=== PATIENT | male | born 1950 | race Caucasian/White ===

== ENCOUNTER 2019-02-11 09:06 | Outpatient (REF) | payer MEDICARE, SELFPAY ==
[2019-02-13 12:51] LABS: IgA 130 mg/dL (85-499); Tissue Transglutaminase IgA <1.2 U/mL (<4.0)
== END 2019-02-11 09:26 ==
LOC: NCHCN 09:06
PROVIDERS: PCP Internal Medicine; Visit Provider Internal Medicine
DX: K58.9 Irritable bowel syndrome, unspecified (principal)
CPT/HCPCS: 82784; 83516

== ENCOUNTER 2019-03-12 16:19 | Outpatient (REF) | payer MEDICARE, SELFPAY ==
[2019-03-12 22:39] LABS: HCT 44.9 % (40.0-50.0); HGB 14.8 g/dL (13.5-17.5); Mean Corpuscular Hemoglobin 30.5 pg (27.0-33.0); Mean Corpuscular Volume 92.4 fL (80-95); Mean Platelet Volume 9.6 fL (8.0-11.0); Platelet Count 345 x1000/uL (130-400); RBC 4.86 m/cumm (4.50-6.00); RBC Distribution Width 13.2 % (11.8-14.1); White Blood Cell Count 12.57 k/cumm (4.4-10.8)
[2019-03-12 22:55] LABS: Anion Gap 8.5 mmol/L (3-11); BUN 21 mg/dL (7-18); CO2 28.5 mmol/L (21.0-32.0); CREATININE 0.81 mg/dL (0.70-1.30); Calcium 9.2 mg/dL (8.5-10.1); Chloride 103 mmol/L (98-107); Glucose 114 mg/dL (74-106); Potassium 4.6 mmol/L (3.5-5.1); Sodium 140 mmol/L (136-145)
[2019-03-12 23:51] LABS: Bilirubin Negative (Negative); Blood Moderate (Negative); Clarity Clear (Clear); Glucose Negative (Negative); Ketones Trace mg/dL (Negative); Leukocyte Esterase Negative (Negative); Nitrite Negative (Negative); Urobilinogen 0.2 EU/dL (Up TO 0.2)
[2019-03-13 00:15] LABS: RBC 20-50 HPF (0-2)
[2019-03-13 00:16] LABS: Bacteria Rare HPF (Negative); C & S Indicated? No; Mucus Trace (Negative)
[2019-03-14 10:30] LABS: PSA, Screening 3.1 ng/mL (0.0-4.5)
== END 2019-03-12 16:39 ==
LOC: NCHCN 16:19
PROVIDERS: PCP Internal Medicine; Visit Provider Nurse Practitioner Family
DX: R30.0 Dysuria (principal); R31.9 Hematuria, unspecified; Z12.5 Encounter for screening for malignant neoplasm of prostate
CPT/HCPCS: 80048; 84153; 85027; 81003; 81015

== ENCOUNTER 2019-04-24 02:46 | Outpatient (CLI) | payer MEDICARE, SELFPAY ==
--- NOTE | 2019-04-24 08:47 | DI.CT_ITS ---
EXAM: CT ABDOMEN PELVIS WO/W CLINICAL HISTORY: H/O HEMATURIA, Z87.448 TECHNIQUE: Without oral contrast Post IV contrast during the venous and delayed phases COMPARISON: CHEST WITH CONTRAST from 06/21/2010 FINDINGS: There is a mass on the left side of the bladder measuring 2.5 cm in diameter. It contains a few armand cifications. There is adjacent thickening of the bladder wall. The prostate is enlarged, measuring 5.8 x 5.3 x 5.9 cm. No adenopathy is seen. There are parapelvic cysts in both kidneys. There are n o renal calculi or evidence of hydronephrosis. No filling defects are seen in the collecting systems . There are no renal masses. The lung bases are clear. The liver shows mild fatty infiltration. The gallbladder, spleen, adrenal s and pancreas are unremarkable. There is diverticulosis in the sigmoid colon. No evidence of diver ticulitis. The appendix appears normal. There is no small bowel dilatation. There is a small amoun t of fat in the inguinal canals, right greater than left. Degenerative disc changes and facet degene rative changes are noted in the spine. No lytic or blastic bony lesions are seen. IMPRESSION: 2.5 centimeter mass in the left side of the bladder with adjacent bladder wall thickening. Enlarged prostate.
[2019-04-24] MEDS: Omnipaque 350 MG/ML 100 ML BTL IJ (09:32)
== END 2019-04-24 03:06 ==
PROVIDERS: PCP Internal Medicine; Visit Provider Internal Medicine
DX: N32.89 Other specified disorders of bladder (principal); N40.0 Benign prostatic hyperplasia without lower urinary tract symptoms; N28.1 Cyst of kidney, acquired; K76.0 Fatty (change of) liver, not elsewhere classified
CPT/HCPCS: 74178; J3490

== ENCOUNTER → 2019-04-30 10:00 | Outpatient (BNVA) | payer MEDICARE, SELFPAY | PROVIDERS: PCP Internal Medicine; Referring Provider Internal Medicine; Visit Provider Nurse Practitioner Gerontology | DX: N32.89 Other specified disorders of bladder (principal); N40.1 Benign prostatic hyperplasia with lower urinary tract symptoms; N13.8 Other obstructive and reflux uropathy | CPT/HCPCS: 81003; 99204 ==

== ENCOUNTER 2019-05-06 06:12 | Day surgery (SDC) | payer MEDICARE, SELFPAY ==
--- NOTE | 2019-05-05 08:49 | BLADDER_PTH ---
PATIENT: José Miguel Ryder LOC: [facility] U#:[id number] AGE/SX: 68/M ROOM: RE05/06/[address]: Romain Abdi MD : 1950 BED: DIS: 05/06/2019 SPEC #: [id number] RECD: 05/06/19 12:46 STATUS: [facility] REQ #: [id number] SEAN: 05/05/19 08:[address]: Romain Abdi DEPT: Surgical Specimen RECD BY: Lashell Hyatt ENTERED: 05/06/19 12:46 SP TYPE: Bladder OTHR DR: Santosh Zhong Tissues: 1 - BLADDER CURRETTINGS Procedures: GROSS AND MICRO LEVEL 5 Comments: [id number]
[2019-05-06 06:27] VITALS: BP 137/78; PULSE 69; RESP 16; TEMP 36.5; O2SAT 99
[2019-05-06] MEDS: Lactated Ringers 1,000 ML 80 ML IV (06:56)
--- NOTE | 2019-05-06 07:02 | W.PM.HP.N ---
Date of service: 05/06/19 Time of Service: 07:02 Assessment and Plan Assessment and plan (1) Bladder mass: Status: Acute Assessment and plan: We will plan cystoscopy with possible TUR Bladder tumor. If he requires continuous bladder irrigation after surgery, he will need to remain in the hospital. Otherwise, he will be able to go home after his surgery. He has a history of ventricular septal defect, but does not require additional antibiotics for surgical procedures History of Present Illness History of Present Illness Chief Complaint: Bladder mass Narrative: José Miguel is a 68-year-old male referred to urology by [facility], Dr. Zhong. Patient is being seen for gross hematuria and a bladder mass. Patient reports being seen by the [facility] for an episode of gross hematuria with dysuria. He states that this was the first time he is ever seen blood in his urine?and was very scared and concerned about this. He states he was tested positive for a UTI and treated with ciprofloxacin. He states his flow got better after the antibiotic. He has not seen any blood in his urine since. He does note that it has been darker in color but without any type of clot or blood. He notes that typically he is up once a night to urinate. He has noticed a weaker stream. He does not need to push to initiate a stream. He does have some hesitancy. Denies frequency urgency. He feels that he empties his bladder completely. He notes that occasionally he will still have dysuria with voiding. He denies abnormal bleeding or bruising of the skin. No long bone pain. No weight loss. He does state that he has had abdominal bloating. He does recall an incident when he was in his younger years shoveling snow where he took the travel to his lower abdominal area and moved his body to shovel the snow. He had developed bruising and jaundice per him that made him sick for several weeks. He never had recurrent urinary tract infections. 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 Allergies Reviewed elsewhere in the chart Medications Reviewed elsewhere in the chart Family Hx No urology family history of concerns or cancers Review of Systems Const: Denies chills, fatigue, fever(s) or weight loss Card: Denies chest pain or dyspnea Resp: Denies dyspnea GI: Reports abdominal pain; Denies constipation or diarrhea : Reports as per HPI and dysuria; Denies hematuria (none currently), flank pain, nocturia, urinary frequency, urinary hesitancy, urinary incontinence or urinary urgency Endo: Denies fatigue Exam Const Orientation: alert, awake and oriented x3 Other: VS reviewed that were done by nurse Eyes Sclera: sclerae normal Resp Effort & Inspection: normal respiratory effort GI Inspection: normal to inspection, non-distended and obesity Palpation: soft and tender suprapubicly Rectal Exam: prostate abnormal enlarged; no nodules and nontender General: No CVA tenderness Extrem General: full ROM [facility] Medical History (Updated 05/06/19 @ 06:23 by Paulino Randhawa) Abdominal bloating (Acute) Adenomatous colon polyp (Acute) Asthma (Chronic) Ceruminosis (Acute) DJD (degenerative joint disease) (Chronic) Patient denies having arthritis or DJD. Dysthymia (Acute) Elevated blood pressure reading (Acute) Elevated PSA (Acute) GERD (gastroesophageal reflux disease) (Chronic) IBS (irritable bowel syndrome) (Chronic) Left shoulder pain (Acute) Lower abdominal pain (Acute) Obesity (Chronic) Peripheral neuropathy (Acute) RLS (restless legs syndrome) (Acute) Skin lesion (Acute) Ventricular septal defect (Acute) Social History Smoking/Tobacco Use Status: Never Drug use: Never Substance use type: does not use Do you feel safe at home: Yes Do you feel safe in your relationship?: Yes Meds Home Medications and Allergies Home Medications Medication Instructions Recorded Confirmed Type omeprazole 20 mg PO DAILY tab-cap 09/27/15 05/06/19 History albuterol sulfate 90 mcg/actuation 2 puff IH Q6H PRN 04/28/19 05/06/19 History aerosol inhaler Allergies Allergy/AdvReac Type Severity Reaction Status Date / Time Penicillins Allergy as child, Unverified 05/06/19 06:24 unknown ropinirole HCl [From Requip] AdvReac Intermediate Contraindic Unverified 05/06/19 06:24 ated Exam Resp Auscultation: clear to auscultation bilaterally Cardio Rate: regular rate Rhythm: regular rhythm Results Last Vital Signs Temp 36.5 C 05/06/19 06:27 Pulse 69 05/06/19 06:27 Resp 16 05/06/19 06:27 BP 137/78 05/06/19 06:27 Pulse Ox 99 05/06/19 06:27
[2019-05-06] MEDS: CIPROFLOXACIN 400 MG/200 ML BAG 200 MG IVPB (07:51)
[2019-05-06] MEDS: Lidocaine 2% Jelly 6 ML SYR (08:10)
[2019-05-06 08:59] VITALS: BP 136/65; PULSE 71; RESP 17; TEMP 36.9; O2SAT 94
--- NOTE | 2019-05-06 08:59 | W.PM.DSUDISC ---
Discharge Plan Disposition Patient Disposition: HOME Condition: Stable Discharge Details Admit Date/Time: 05/06/19 06:12 Admit Provider: Romain Abdi Attending Provider: Romain Abdi Primary Care Provider: Santosh Zhong Hospital Course Hospital Course: He was brought to the operating room for cystoscopy. We identified a rather large tumor on the left anterior bladder wall. Resection of the tumor was accomplished. The depth of the resection made me decide not to place intravesical chemotherapy intraoperatively Hemostasis appeared good so we decided against bladder irrigation and hospitalization. We placed a 20 Marshallese Cannon catheter with a 10 cc balloon. The catheter will remain in place for 5 to 7 days. Home Meds and New Rx's Prescriptions: No Action omeprazole 10 MG capsule,delayed release(DR/EC) 20 mg PO DAILY RF: 0 albuterol sulfate [Ventolin HFA] 90 mcg/actuation HFA aerosol inhaler 2 puff IH Q6H PRNRF: 0 Discharge Instructions Additional Instructions: Cannon to legbag during day - may use large drainage bag at night F/U for catheter removal 5 to 7 days and pathology Activity:: no straining/lifting over 10 pounds for 1 week Equipment/Supplies:: cannon to leg bag Diet:: As Tolerated Discharge Orders Discharge Orders: Discharge Order (Routine); Ordered 05/06/19 Ordered By: Romain Abdi DS: Diagnosis Discharge Diagnosis (1) Bladder mass: Status: Acute
[2019-05-06 09:04] VITALS: BP 136/76; PULSE 71; RESP 15; TEMP 36.9; O2SAT 94
[2019-05-06 09:09] VITALS: BP 133/66; PULSE 73; RESP 16; TEMP 36.9; O2SAT 94
[2019-05-06 09:24] VITALS: BP 117/55; PULSE 69; RESP 18; TEMP 36.9; O2SAT 97
[2019-05-06 10:37] VITALS: BP 112/64; PULSE 60; RESP 16; TEMP 36.5; O2SAT 96
--- NOTE | 2019-05-06 11:02 | ROE_ITS ---
DATE OF PROCEDURE: May 06, 2019 PREOPERATIVE DIAGNOSIS: Bladder mass. POSTOPERATIVE DIAGNOSIS: Same. PROCEDURE: Cystoscopy; transurethral resection of bladder tumor. SURGEON: Romain Abdi M.D. ANESTHESIA: General. COMPLICATIONS: None. ESTIMATED BLOOD LOSS: 100 cc's HISTORY: This is a 68-year-old gentleman who was identified as having gross hematuria with clots. H e was evaluated with a CT urogram which demonstrated a mass within the bladder. He presents now for a cystoscopy, possible transurethral resection of any visible mass and installation of chemotherapy i nto the bladder. OPERATIVE REPORT: The patient was brought to the operating room on 05/06/2019. After successful vidya ction of general anesthesia, he was placed in the dorsal lithotomy position. He was given a dose of preoperative antibiotics. His genitalia was prepped and draped. 2% Xylocaine jelly was instilled into the urethra to act as a local anesthetic. A 24 Fijian resectoscope sheath was passed through the urethra into the bladder. The urethra and bladder were inspected with the visual obturator and a 30-degree lens. The pendulous, bulbous and membranous urethras all appeared normal with no strictures. The prostatic urethra showed some lateral lobe enlargement and an elevated bladder neck. No papillary lesions wer e seen on the prostatic mucosa. Both ureteral orifices appeared normal. No blood was seen coming from either side. The right side o f the bladder appeared normal. Up on the left anterior bladder wall there was a 5 cm necrotic-appear ing mass. Surrounding the mass there appeared to be papillary mucosa, consistent with the visual gisselle earance of urothelial cell carcinoma. We then utilized a resectoscope loop and bipolar cautery to completely resect the visible tumor. We extended the resection down to the muscularis layer for staging purposes. In a few areas, perivesica l fat was seen so we elected not to place a dose of intravesical chemotherapy. We then cauterized the entire resection site. Hemostasis appeared excellent so we decided against bl adder irrigation. All resected tissue was evacuated and sent to pathology for permanent section. The bladder was fille d with irrigant. A 20 Fijian Kim catheter was passed through the urethra into the bladder. The ca theter balloon was inflated with 10 cc's of sterile water and the catheter was hooked to gravity manjula coon. The catheter was irrigated and no clots or tissue was evacuated. A digital rectal exam and bimanual exam was performed. No pelvic fixation was noted. No palpable ma ss was found. A belladonna and opium suppository was placed rectally to help with postop spasms. The patient tolerated the procedure well with no complications. cc: Santosh Zhong M.D.
== END 2019-05-06 11:10 | disposition home or self-care (01) ==
LOC: PDS 10:19 → DSU 12:33
PROVIDERS: PCP Internal Medicine; Visit Provider Urology
PROC: 0TBB8ZZ Excision of Bladder, Via Natural or Artificial Opening Endoscopic (ICD-10-PCS; CPT 52235; principal; 2019-05-06 08:30)
DX: C67.3 Malignant neoplasm of anterior wall of bladder (principal)
CPT/HCPCS: 52235; NC; 88307; J0131; J0744; J1100; J1885; J2001; J2250; J2405; J3010

== ENCOUNTER 2019-05-08 00:10 | Emergency (ER) | payer MEDICARE, SELFPAY ==
[2019-05-08 00:14] VITALS: BP 185/94; PULSE 95; RESP 20; TEMP 36.6; O2SAT 98
--- NOTE | 2019-05-08 00:18 | ED.GENADUL_ITS ---
Discharge Plan Disposition Patient Disposition: HOME Condition: Stable Discharge Details Chief Complaint: Urinary Clinical Impression: Bladder spasms Primary Care Provider: Santosh Zhong ED Provider: Edwin Nunez Home Meds and New Rx's Prescriptions: Continued omeprazole 10 MG capsule,delayed release(DR/EC) 20 mg PO DAILY RF: 0 albuterol sulfate [Ventolin HFA] 90 mcg/actuation HFA aerosol inhaler 2 puff IH Q6H PRNRF: 0 tramadol 50 mg tablet 50 mg PO Q6H PRN (Reason: pain) Qty: 15 RF: 0 oxybutynin chloride 5 mg tablet 5 mg PO TID PRN (Reason: bladder spasms) Qty: 12 RF: 0 Discharge Instructions Instructions: Cannon Catheter Placement and Care (ED), Urinary Leg Bag (GEN) Additional Instructions: follow up with Dr. Abdi if you have severe worsening pain, fevers or persistent vomit return to the emergency department Medical Decision Making 68 yo male who underwent bladder mass removal [address] Abdi comes in with intermittent spasm sensation in suprapubic region during the day today. HAs not taken any meds and denies having any tramadol or oxybutynin at home. Denies fevers, vomit. Cannon catheter bag is draining normally and flushes easily. Patient has no pain now and no tenderness, normal testicles without tenderness. Suspect bladder spasm based on recent procedure and symptoms. Given lack of tenderness now don't suspect surgical pathology such as appendicitis, ruptured bladder, etc. Will give oxybutynin prescriptions and tramadol. ADvised f/u with Dr. Abdi and return precautions given. Differential Diagnosis Differential Diagnosis: bladder spasm, cannon catheter malfunction HPI General Mode of arrival: ambulatory . Date/Time Provider Initiated Documentation: 05/08/19 00:11 . Limitations to Documentation: no limitations . Information obtained by: patient . History of Present Illness 68 year old M presents to the emergency department with the chief complaint of bladder spasm, described as moderate, and it has been intermittent. No relieving factors improve symptom(s), No exacerbating factors reported . Patient did receive the following treatments prior to arrival, none Related Data Home Medications Medication Instructions Recorded Confirmed omeprazole 20 mg PO DAILY tab-cap 09/27/15 05/08/19 albuterol sulfate 90 mcg/actuation 2 puff IH Q6H PRN 04/28/19 05/08/19 aerosol inhaler oxybutynin chloride 5 mg PO TID PRN #12 tab 05/08/19 tramadol 50 mg PO Q6H PRN #15 tab 05/08/19 Previous Rx's Medication Instructions Recorded oxybutynin chloride 5 mg PO TID PRN #12 tab 05/08/19 tramadol 50 mg PO Q6H PRN #15 tab 05/08/19 Allergies Allergy/AdvReac Type Severity Reaction Status Date / Time Penicillins Allergy as child, Unverified 05/08/19 00:16 unknown ropinirole HCl [From Requip] AdvReac Intermediate Contraindic Unverified 02/14 00:16 ated General Stated Complaint: Urinary LUIS MANUEL: 3 Review of Systems All systems reviewed & are unremarkable except as noted in HPI and below Constitutional Constitutional: Denies chills and Denies fever(s) ENT Ears, Nose, Mouth, and Throat: Denies change in voice Cardiovascular Cardiovascular: Denies chest pain and Denies dyspnea Respiratory Respiratory: Denies cough and Denies dyspnea Gastrointestinal Gastrointestinal: Denies abdominal pain, Denies nausea and Denies vomiting Integumentary/Breasts Skin/Breast: Denies rash Psychiatric Psychiatric: Denies depression PFSH Social History Smoking/Tobacco Use Status: Never Drug use: Never Substance use type: does not use Do you feel safe at home: Yes Do you feel safe in your relationship?: Yes Exam Const General: no acute distress Orientation: alert HENMT Head: normal to inspection Ears: external ears normal General nose exam: external nose normal Mouth: moist mucous membranes Eyes General: appearance normal, both eyes and all related structures Neck Neck: normal visual inspection Resp Effort & Inspection: normal respiratory effort and able to speak in complete sentences Cardio Rate: regular rate Male General Exam: No edema and No erythema Skin General skin exam: no rashes or lesions noted Neuro General: alert and oriented x3 Extrem General: normal to inspection Psych Mental Status: mental status grossly normal Course Vital Signs Vital signs: Vital Signs Temperature 36.6 C 05/08/19 00:14 Pulse 95 H 05/08/19 00:14 Respiratory Rate 20 05/08/19 00:14 Blood Pressure 185/94 H 05/08/19 00:14 Pulse Oximetry 98 05/08/19 00:14 Temperature 36.6 C 05/08/19 00:14 Temperature Source Temporal Artery Scan 05/08/19 00:14 Pulse 95 H 05/08/19 00:14 Respiratory Rate 20 05/08/19 00:14 Respiratory Effort Non-Labored 05/08/19 00:16 Blood Pressure 185/94 H 05/08/19 00:14 Blood Pressure Position Sitting 05/08/19 00:14 Pulse Oximetry 98 05/08/19 00:14 Oxygen Delivery Method Room Air 05/08/19 00:14 Oxygen Flow Rate 0 05/08/19 00:14 Pain Level 10 05/08/19 00:16
[2019-05-08] MEDS: Oxybutynin 5 MG TAB (00:34)
[2019-05-08] MEDS: Oxybutynin 5 MG TAB PO (00:34)
[2019-05-08] MEDS: traMADol 50 MG TAB PO (00:34)
[2019-05-08 01:08] VITALS: BP 185/94; PULSE 95; RESP 20; TEMP 36.6; O2SAT 98
== END 2019-05-08 01:10 | disposition home or self-care (01) ==
LOC: ER 00:44
PROVIDERS: Emergency Provider Emergency Medicine; PCP Internal Medicine
DX: N32.89 Other specified disorders of bladder (principal); Y83.8 Other surgical procedures as the cause of abnormal reaction of the patient, or of later complication, without mention of misadventure at the time of the procedure; Z96.0 Presence of urogenital implants
CPT/HCPCS: 99283

== ENCOUNTER → 2019-05-09 08:13 | Outpatient (BNVA) | payer MEDICARE, SELFPAY | PROVIDERS: PCP Internal Medicine; Referring Provider Internal Medicine; Visit Provider Urology | DX: C67.3 Malignant neoplasm of anterior wall of bladder (principal); Z46.6 Encounter for fitting and adjustment of urinary device | CPT/HCPCS: 99212 ==

== ENCOUNTER → 2019-05-15 12:26 | Outpatient (BNVA) | payer MEDICARE, SELFPAY | PROVIDERS: PCP Internal Medicine; Referring Provider Internal Medicine; Visit Provider Urology | DX: C67.9 Malignant neoplasm of bladder, unspecified (principal); D09.0 Carcinoma in situ of bladder | CPT/HCPCS: 81003; 99214 ==

== ENCOUNTER → 2019-06-13 13:27 | Outpatient (BNVA) | payer MEDICARE, SELFPAY | PROVIDERS: PCP Internal Medicine; Referring Provider Internal Medicine; Visit Provider Urology | DX: D09.0 Carcinoma in situ of bladder (principal); C67.9 Malignant neoplasm of bladder, unspecified | CPT/HCPCS: 51720; 99213; J9201 ==

== ENCOUNTER → 2019-06-20 10:40 | Outpatient (BNVA) | payer MEDICARE, SELFPAY | PROVIDERS: PCP Internal Medicine; Referring Provider Internal Medicine; Visit Provider Urology | DX: C67.9 Malignant neoplasm of bladder, unspecified (principal); D09.0 Carcinoma in situ of bladder | CPT/HCPCS: 51720; 99212; J9031 ==

== ENCOUNTER → 2019-06-27 11:28 | Outpatient (BNVA) | payer MEDICARE, SELFPAY | PROVIDERS: PCP Internal Medicine; Referring Provider Internal Medicine; Visit Provider Urology | DX: D09.0 Carcinoma in situ of bladder (principal); C67.9 Malignant neoplasm of bladder, unspecified | CPT/HCPCS: 51720; 99213; J9031 ==

== ENCOUNTER → 2019-07-04 08:06 | Outpatient (BNVA) | payer MEDICARE, SELFPAY | PROVIDERS: PCP Internal Medicine; Referring Provider Internal Medicine; Visit Provider Urology | DX: D09.0 Carcinoma in situ of bladder (principal); C67.9 Malignant neoplasm of bladder, unspecified | CPT/HCPCS: 51720; 99213; J9031 ==

== ENCOUNTER → 2019-07-11 07:40 | Outpatient (BNVA) | payer MEDICARE, SELFPAY | PROVIDERS: PCP Internal Medicine; Referring Provider Internal Medicine; Visit Provider Urology | DX: D09.0 Carcinoma in situ of bladder (principal); C67.9 Malignant neoplasm of bladder, unspecified | CPT/HCPCS: 51720; 99213; J9031 ==

== ENCOUNTER → 2019-07-18 07:47 | Outpatient (BNVA) | payer MEDICARE, SELFPAY | PROVIDERS: PCP Internal Medicine; Referring Provider Internal Medicine; Visit Provider Urology | DX: D09.0 Carcinoma in situ of bladder (principal); C67.9 Malignant neoplasm of bladder, unspecified | CPT/HCPCS: 51720; 99213; J9201 ==

== ENCOUNTER 2019-08-25 08:32 | Outpatient (CLI) | payer MEDICARE, SELFPAY ==
[2019-08-25 20:44] LABS: COVID-19 RT-PCR UVMMC Result Negative (Negative)
== END 2019-08-25 08:52 ==
PROVIDERS: PCP Internal Medicine; Visit Provider Urology
DX: Z01.818 Encounter for other preprocedural examination (principal); Z11.59 Encounter for screening for other viral diseases
CPT/HCPCS: U0003

== ENCOUNTER 2019-08-28 06:56 | Day surgery (SDC) | payer MEDICARE, SELFPAY ==
[2019-08-28 07:13] VITALS: BP 144/72; PULSE 68; RESP 18; TEMP 36.7; O2SAT 97
[2019-08-28] MEDS: Lactated Ringers 1,000 ML 80 ML IV (08:04)
[2019-08-28] MEDS: Ciprofloxacin 500 MG TAB PO (08:04)
--- NOTE | 2019-08-28 08:23 | HPE_ITS ---
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 He was treated with transurethral resection followed by an induction course of intravesical BCG. He presents for surveillance cystoscopy and possible transurethral resection. He has not seen any gross hematuria. He has some spraying of his urinary stream. He has no retention. Review of Systems Narrative: No fevers or chills No vision change or dysphasia No diabetes or thyroid Hx asthma. No hemoptysis No chest pain or palpitations Hx GERD. No hepatitis, ulcers, jaundice, diarrhea or constipation No seizures, strokes or peripheral neuropathy No bleeding disorders or anemia No gout [facility] Medical History Abdominal bloating (Acute) Adenomatous colon polyp (Acute) Asthma (Chronic) Bladder cancer (Acute) Carcinoma in situ of bladder (Acute) Ceruminosis (Acute) DJD (degenerative joint disease) (Chronic) Patient denies having arthritis or DJD. Dysthymia (Acute) Elevated blood pressure reading (Acute) Elevated PSA (Acute) GERD (gastroesophageal reflux disease) (Chronic) IBS (irritable bowel syndrome) (Chronic) Left shoulder pain (Acute) Lower abdominal pain (Acute) Obesity (Chronic) Peripheral neuropathy (Acute) RLS (restless legs syndrome) (Acute) Skin lesion (Acute) Ventricular septal defect (Acute) Surgical History (Updated 08/28/19 @ 07:15 by Lily Bagley RN) Colonoscopy - MAC (11/30/15) Hx of cystoscopy (Acute) Social History Smoking/Tobacco Use Status: Never Alcohol Intake: current Alcohol Intake frequency: 0-2 drinks per day Alcohol type: wine Drug use: Never Substance use type: does not use Do you feel safe at home: Yes Do you feel safe in your relationship?: Yes Meds Home Medications and Allergies Home Medications Medication Instructions Recorded Confirmed Type omeprazole 20 mg PO DAILY tab-cap 09/27/15 08/28/19 History albuterol sulfate 90 mcg/actuation 2 puff IH Q6H PRN 04/28/19 08/28/19 History aerosol inhaler oxybutynin chloride 5 mg PO TID PRN #12 tab 05/08/19 08/28/19 Rx tramadol 50 mg PO Q6H PRN #15 tab 05/08/19 08/28/19 Rx amlodipine 5 mg PO DAILY 08/26/19 08/28/19 History multivitamin 1 tab PO DAILY 08/26/19 08/28/19 History Allergies Allergy/AdvReac Type Severity Reaction Status Date / Time Penicillins Allergy as child, Unverified 08/28/19 07:14 unknown ropinirole HCl [From Requip] AdvReac Intermediate Contraindic Unverified 08/28/19 07:14 ated Exam Const General: cooperative and not in acute distress Orientation: alert and awake Neck Neck: supple Resp Effort & Inspection: normal respiratory effort Auscultation: clear to auscultation bilaterally Cardio Rate: regular rate Rhythm: regular rhythm GI Palpation: soft and no masses Neuro General: patient alert, patient awake and patient oriented x3 Results Last Vital Signs Temp 36.7 C 08/28/19 07:13 Pulse 68 08/28/19 07:13 Resp 18 08/28/19 07:13 BP 144/72 H 08/28/19 07:13 Pulse Ox 97 08/28/19 07:13 COVID-19 Screening In the past 14 days, have you traveled outside of [place]?: YES Had IN PERSON contact w/suspected or confirmed C-19 person: No
[2019-08-28] MEDS: Lidocaine 2% Jelly 6 ML SYR (09:25)
--- NOTE | 2019-08-28 09:28 | PAPNONF_PTH ---
PATIENT: José Miguel Ryder LOC: [facility] U#:[id number] AGE/SX: 69/M ROOM: RE08/28/[address]: Romain Abdi MD : 1950 BED: DIS: 08/28/2019 SPEC #: [id number] RECD: 08/28/19 13:00 STATUS: [facility] REQ #: [id number] SEAN: 08/28/19 09:[address]: Romain Abdi DEPT: [facility] Cytology RECD BY: Lashell Hyatt ENTERED: 08/28/19 13:01 SP TYPE: PAPBALDOMEROF [place] DR: Santosh Zhong Tissues: 1 - BODY FLUID CYTO(SPUTUM/URINE)[facility] Procedures: BODY FLUID CYTO(URINE/SPUTUM) Comments: [id number] (TOTAL VOLUME = 90 ml's) (45 ml's URINE & 45 ml's CYTOLYT ADDED IN 2 CONTAINERS)
--- NOTE | 2019-08-28 09:37 | W.PM.DSUDISC ---
Discharge Plan Disposition Patient Disposition: HOME Condition: Stable Discharge Details Attending Provider: Romain Abdi Primary Care Provider: Santosh Zhong Home Meds and New Rx's Prescriptions: No Action omeprazole 10 MG capsule,delayed release(DR/EC) 20 mg PO DAILY RF: 0 albuterol sulfate [Ventolin HFA] 90 mcg/actuation HFA aerosol inhaler 2 puff IH Q6H PRNRF: 0 tramadol 50 mg tablet 50 mg PO Q6H PRN (Reason: pain) Qty: 15 RF: 0 oxybutynin chloride 5 mg tablet 5 mg PO TID PRN (Reason: bladder spasms) Qty: 12 RF: 0 amlodipine 5 mg Tablet 5 mg PO DAILY RF: 0 multivitamin Tablet 1 tab PO DAILY RF: 0 Discharge Instructions Additional Instructions: My office will call pt with cytology results next week As long as cytology is normal (as expected) will need surveillance cysto in 3 months Activity:: Activity as Tolerated Shower/Bathe:: 24 hours Diet:: As Tolerated Discharge Orders Discharge Orders: Discharge Order (Routine); Ordered 08/28/19 Ordered By: Romain Abdi DS: Diagnosis Discharge Diagnosis (1) Carcinoma in situ of bladder: Status: Acute (2) Bladder cancer: Status: Acute
--- NOTE | 2019-08-28 09:42 | ROE_ITS ---
Date of service: 08/28/19 Time of Service: 09:42 Operative Note Operative Note DATE OF PROCEDURE: 08/28/19 PRE-OP DIAGNOSIS: Bladder cancer POST-OP DIAGNOSIS: same PROCEDURE: Cystoscopy SURGEON: Romain Abdi ANESTHESIA: other (General without intubation) ESTIMATED BLOOD LOSS: 0 PATHOLOGY: other (Urine for cytology) COMPLICATIONS: None Patient was transported to: same day Patient's condition: stable Indications: This is a 69-year-old gentleman who has a history of high-grade urothelial cell carcinoma that involved the lamina propria. He also had areas of carcinoma in situ. He received a 6-week induction series of BCG installations. He presents now for surveillance cystoscopy. Findings: No obvious bladder tumor Procedure Description: The patient was brought to the operating room on 08/28/2019. He was given preoperative oral antibiotics. After successful induction of general anesthesia without intubation, he was placed in the dorsal lithotomy position. His genitalia is prepped and draped. 2% Xylocaine jelly was instilled into the urethra to act as a local anesthetic. A 17 Vietnamese rigid cystoscope was passed through the urethra into the bladder. The urethra and bladder were inspected using a 30 degree lens. The pendulous, bulbous and membranous urethra was appeared normal. The prostatic urethra showed lateral lobe enlargement but no significant median lobe. The bladder neck was entered the bladder mucosa was inspected. Urine was obtained directly from the bladder and sent to pathology for cytology exam. The bladder mucosa appeared normal with the exception of a small adherent stone in the patient's left anterior bladder wall. This corresponds to his previous site of resection. No papillary or nodular lesions were identified. These findings were confirmed on reinspection of the bladder using a 70 degree lens. Based on today's examination, I do not find any cystoscopic evidence of tumor recurrence. As long as his urine cytology is unremarkable, we will plan on a repeat cystoscopy in 3 months. We will also check on the availability of BCG for maintenance doses of intravesical chemotherapy. He tolerated this procedure well with no complications. He was to come back to the outpatient area in stable condition.
[2019-08-28] MEDS: Phenazopyridine 200 MG TAB PO (09:59)
[2019-08-28 10:15] VITALS: BP 132/68; PULSE 65; RESP 18; TEMP 36.2; O2SAT 99
--- NOTE | 2019-08-28 10:16 | W.PM.DSUDISC ---
Discharge Plan Disposition Patient Disposition: HOME Condition: Stable Discharge Details Attending Provider: Romain Abdi Primary Care Provider: Santosh Zhong Home Meds and New Rx's Prescriptions: New oxybutynin chloride 5 mg tablet 5 mg PO BID-TID PRN (Reason: bladder spasms) Qty: 10 RF: 0 Discontinued oxybutynin chloride 5 mg tablet 5 mg PO TID PRN (Reason: bladder spasms) Qty: 12 RF: 0 No Action omeprazole 10 MG capsule,delayed release(DR/EC) 20 mg PO DAILY RF: 0 albuterol sulfate [Ventolin HFA] 90 mcg/actuation HFA aerosol inhaler 2 puff IH Q6H PRNRF: 0 tramadol 50 mg tablet 50 mg PO Q6H PRN (Reason: pain) Qty: 15 RF: 0 amlodipine 5 mg Tablet 5 mg PO DAILY RF: 0 multivitamin Tablet 1 tab PO DAILY RF: 0 Discharge Instructions Additional Instructions: My office will call pt with cytology results next week As long as cytology is normal (as expected) will need surveillance cysto in 3 months Stand Alone Forms: [facility] Donna Rajan ([facility]oke) Activity:: Activity as Tolerated Shower/Bathe:: 24 hours Diet:: As Tolerated Discharge Orders Discharge Orders: Discharge Order (Routine); Ordered 08/28/19 Ordered By: Romain Abdi DS: Diagnosis Discharge Diagnosis (1) Carcinoma in situ of bladder: Status: Acute (2) Bladder cancer: Status: Acute
== END 2019-08-28 10:45 | disposition home or self-care (01) ==
PROVIDERS: PCP Internal Medicine; Visit Provider Urology
PROC: 0TJB8ZZ Inspection of Bladder, Via Natural or Artificial Opening Endoscopic (ICD-10-PCS; CPT 52000; principal; 2019-08-28 08:30)
DX: Z08 Encounter for follow-up examination after completed treatment for malignant neoplasm (principal); C67.9 Malignant neoplasm of bladder, unspecified; J45.909 Unspecified asthma, uncomplicated; K21.9 Gastro-esophageal reflux disease without esophagitis
CPT/HCPCS: 52000; NC; 88104; J1885; J2001; J2405

== ENCOUNTER → 2019-10-14 08:44 | Outpatient (BNVA) | payer MEDICARE, SELFPAY | PROVIDERS: PCP Internal Medicine; Referring Provider Internal Medicine; Visit Provider Nurse Practitioner Gerontology | DX: C67.9 Malignant neoplasm of bladder, unspecified (principal) | CPT/HCPCS: 51720; 81003; 99213; J9201 ==

== ENCOUNTER → 2019-10-27 14:35 | Outpatient (BNVA) | payer MEDICARE, SELFPAY | PROVIDERS: PCP Internal Medicine; Referring Provider Internal Medicine; Visit Provider Urology | DX: N40.1 Benign prostatic hyperplasia with lower urinary tract symptoms (principal); N13.8 Other obstructive and reflux uropathy; D09.0 Carcinoma in situ of bladder; C67.9 Malignant neoplasm of bladder, unspecified | CPT/HCPCS: 99212; 99213 ==

== ENCOUNTER 2020-01-02 01:51 | Outpatient (CLI) | payer MEDICARE, SELFPAY ==
[2020-01-04 11:09] LABS: SARS-CoV-2 RNA Not Detected (NotDetected); SARS-CoV-2 RNA Source Nasal/Nares
== END 2020-01-02 02:11 ==
PROVIDERS: PCP Internal Medicine; Visit Provider Urology
DX: Z11.59 Encounter for screening for other viral diseases (principal); Z01.818 Encounter for other preprocedural examination
CPT/HCPCS: U0003

== ENCOUNTER 2020-01-05 07:13 | Day surgery (SDC) | payer MEDICARE, SELFPAY ==
[2020-01-05 07:28] VITALS: BP 149/82; PULSE 70; RESP 16; TEMP 36.7; O2SAT 100
[2020-01-05] MEDS: Ciprofloxacin 500 MG TAB PO (08:02)
[2020-01-05] MEDS: Lactated Ringers 1,000 ML 80 ML IV (08:10)
--- NOTE | 2020-01-05 08:16 | W.PM.HP.N ---
Date of service: 01/05/20 Time of Service: :16 Assessment and Plan Assessment and plan (1) Bladder cancer: Status: Acute (2) Carcinoma in situ of bladder: Status: Acute Assessment and plan: We will plan on cystoscopy and transurethral resection of any visible abnormality. If the bladder looks normal, we will plan on sending a urine for cytology. 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 His pathology is also demonstrated carcinoma in situ. He underwent transurethral resection followed by intravesical BCG therapy. He completed his induction series and is currently receiving maintenance doses of gemcitabine or BCG based on availability. He comes in for surveillance cystoscopy. He is not seen any gross hematuria. He does have some urinary hesitancy but no frequency or urgency. He has not gone into retention. Review of Systems Narrative: No fevers or chills c/o dental pain. No vision change or dysphasia No diabetes or thyroid dysfunction C/O shortness of breath related to asthma. No current cough or hemoptysis No chest pain or palpitations Hx GERD. No nausea, vomiting, hepatitis, ulcers, jaundice, diarrhea or constipation No seizures, strokes No bleeding disorders or anemia No gout. c/o arthralgia [facility] Medical History Abdominal bloating Adenomatous colon polyp Asthma Bladder cancer Carcinoma in situ of bladder Ceruminosis DJD (degenerative joint disease) Patient denies having arthritis or DJD. Dysthymia Elevated blood pressure reading Elevated PSA GERD (gastroesophageal reflux disease) IBS (irritable bowel syndrome) Left shoulder pain Lower abdominal pain Obesity Peripheral neuropathy RLS (restless legs syndrome) Skin lesion Ventricular septal defect Surgical History Colonoscopy - MAC (11/30/15) Hx of cystoscopy Social History Smoking/Tobacco Use Status: Never Smoking risk assessment performed?: Yes Alcohol Intake: current Alcohol Intake frequency: 0-2 drinks per day Alcohol type: wine Drug use: Never Substance use type: does not use Details: alcohol: t-1, 1700 Do you feel safe at home: Yes Do you feel safe in your relationship?: Yes Meds Home Medications and Allergies Home Medications Medication Instructions Recorded Confirmed Type omeprazole 20 mg PO DAILY tab-cap 09/27/15 01/05/20 History albuterol sulfate 90 mcg/actuation 2 puff IH Q6H PRN 04/28/19 01/05/20 History aerosol inhaler tramadol 50 mg PO Q6H PRN #15 tab 05/08/19 01/05/20 Rx amlodipine 5 mg PO DAILY 08/26/19 01/05/20 History multivitamin 1 tab PO DAILY 08/26/19 01/05/20 History oxybutynin chloride 5 mg PO BID-TID PRN #10 tab 08/28/19 01/05/20 Rx hydrocodone-acetaminophen 1 01/05/20 History Allergies Allergy/AdvReac Type Severity Reaction Status Date / Time Penicillins Allergy as child, Unverified 01/05/20 07:46 unknown ropinirole HCl [From Requip] AdvReac Intermediate Contraindic Unverified 01/05/20 07:46 ated Exam Narrative Exam Narrative: He is in no current distress. He is cooperative. His vital signs are documented elsewhere in the chart His chest wall motion is normal. He is not short of breath at rest. His neck is supple Lungs are clear Cardiac exam shows a regular rate and rhythm with a systolic murmur His abdomen is soft with no mass He is awake and alert Results Last Vital Signs Temp 36.7 C 01/05/20 07:28 Pulse 70 01/05/20 07:28 Resp 16 01/05/20 07:28 BP 149/82 H 01/05/20 07:28 Pulse Ox 100 01/05/20 07:28 COVID-19 Screening Have you,or household,traveled outside [place] in last 14 days?: No Had IN PERSON contact w/suspected or confirmed C-19 person: No
[2020-01-05] MEDS: Lidocaine 2% Jelly 11 ML SYR (09:10)
--- NOTE | 2020-01-05 09:10 | PAPNONF_PTH ---
PATIENT: José Miguel Ryder LOC: [facility] U#:[id number] AGE/SX: 69/M ROOM: RE01/05/[address]: Romain Abdi MD : 1950 BED: DIS: 01/05/2020 SPEC #: [id number] RECD: 01/05/20 10:54 STATUS: [facility] REQ #: [id number] SEAN: 01/05/20 09:[address]: Romain Abdi DEPT: [facility] Cytology RECD BY: Caty Pugh ENTERED: 01/05/20 10:55 SP TYPE: MEGAN CONRAD DR: Santosh Zhong Tissues: 1 - BODY FLUID CYTO(SPUTUM/URINE)[facility] Procedures: BODY FLUID CYTO(URINE/SPUTUM) Comments: [id number] (TOTAL URINE VOLUME= 96 ML) (2 CONTAINERS OF 48 ML URINE & 48 ML CYTOLYT)
--- NOTE | 2020-01-05 09:20 | W.PM.DSUDISC ---
Discharge Plan Disposition Patient Disposition: HOME Condition: Stable Discharge Details Reason For Visit: Bladder cancer Attending Provider: Romain Abdi Primary Care Provider: Santosh Zhnog Home Meds and New Rx's Prescriptions: No Action omeprazole 10 MG capsule,delayed release(DR/EC) 20 mg PO DAILY RF: 0 albuterol sulfate [Ventolin HFA] 90 mcg/actuation HFA aerosol inhaler 2 puff IH Q6H PRNRF: 0 tramadol 50 mg tablet 50 mg PO Q6H PRN (Reason: pain) Qty: 15 RF: 0 amlodipine 5 mg Tablet 5 mg PO DAILY RF: 0 multivitamin Tablet 1 tab PO DAILY RF: 0 oxybutynin chloride 5 mg tablet 5 mg PO BID-TID PRN (Reason: bladder spasms) Qty: 10 RF: 0 hydrocodone-acetaminophen 5-325 mg Tablet 1 RF: 0 Discharge Instructions Additional Instructions: F/U 6 weeks for dose of intravesical BCG in office F/U surveillance cystoscopy in 12 weeks Pt should expect a call from our office in 1 to 2 weeks with cytology results Activity:: Activity as Tolerated Shower/Bathe:: 24 hours Diet:: As Tolerated Discharge Orders Discharge Orders: Discharge Order (Routine); Ordered 01/05/20 Ordered By: Romain Abdi DS: Diagnosis Discharge Diagnosis (1) Bladder cancer: Status: Acute (2) Carcinoma in situ of bladder: Status: Acute
--- NOTE | 2020-01-05 09:24 | ROE_ITS ---
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 He also has carcinoma in situ on his initial pathology. He was treated with an induction series of BCG followed by maintenance dosing. He presents for surveillance cystoscopy He is not seeing any gross hematuria. Findings: no visible bladder tumor Procedure Description: The patient was brought to the operating room on 01/05/2020. He was given preoperative oral antibiotics. After successful induction of general anesthesia without intubation, he was placed in the dorsal lithotomy position. His genitalia was prepped and draped. 2% Xylocaine jelly was instilled into the urethra to act as a local anesthetic. A 22 Bangladeshi rigid cystoscope was passed through the urethra into the bladder. The initial urine that was encountered was collected and sent to pathology for cytology. The urethra and bladder were inspected with the 30 degree lens. The pendulous, bulbous and membranous urethra was all appeared normal with no strictures. The prostatic urethra showed lateral lobe enlargement and a small inflammatory polyp at the bladder neck. No papillary lesions were seen. The bladder neck was entered the bladder mucosa was inspected. Both ureteral orifice ease appeared normal. Clear urine was seen from each side. No papillary or nodular lesions were seen within the bladder. These findings were confirmed on reinspection of the bladder with a 70 degree lens. Based on these findings, I see no evidence of tumor recurrence. We will plan on a maintenance dose of BCG in 6 weeks and surveillance cystoscopy in 12 weeks.
[2020-01-05] MEDS: Phenazopyridine 200 MG TAB PO (09:56)
[2020-01-05 10:10] VITALS: BP 106/66; PULSE 65; RESP 16; TEMP 36.3; O2SAT 97
--- NOTE | 2020-01-05 10:10 | W.PM.DSUDISC ---
Discharge Plan Disposition Patient Disposition: HOME Condition: Stable Discharge Details Reason For Visit: Bladder cancer Attending Provider: Romain Abdi Primary Care Provider: Santosh Zhong Home Meds and New Rx's Prescriptions: No Action oxybutynin chloride 5 mg tablet 5 mg PO BID-TID PRN (Reason: bladder spasms) Qty: 10 RF: 0 omeprazole 10 MG capsule,delayed release(DR/EC) 20 mg PO DAILY RF: 0 albuterol sulfate [Ventolin HFA] 90 mcg/actuation HFA aerosol inhaler 2 puff IH Q6H PRNRF: 0 tramadol 50 mg tablet 50 mg PO Q6H PRN (Reason: pain) Qty: 15 RF: 0 amlodipine 5 mg Tablet 5 mg PO DAILY RF: 0 multivitamin Tablet 1 tab PO DAILY RF: 0 hydrocodone-acetaminophen 5-325 mg Tablet 1 RF: 0 Discharge Instructions Additional Instructions: F/U 6 weeks for dose of intravesical BCG in office F/U surveillance cystoscopy in 12 weeks Pt should expect a call from our office in 1 to 2 weeks with cytology results Stand Alone Forms: [facility] Donna Rajan ([facility]) Activity:: Activity as Tolerated Shower/Bathe:: 24 hours Diet:: As Tolerated Discharge Orders Discharge Orders: Discharge Order (Routine); Ordered 01/05/20 Ordered By: Romain Abdi Discharge Data Discharge Date/Time-TO BE ENTERED AT DEPARTURE: 01/05/20 10:53 DS: Diagnosis Discharge Diagnosis (1) Bladder cancer: Status: Acute (2) Carcinoma in situ of bladder: Status: Acute
== END 2020-01-05 10:53 | disposition home or self-care (01) ==
PROVIDERS: PCP Internal Medicine; Visit Provider Urology
PROC: 0TBB8ZZ Excision of Bladder, Via Natural or Artificial Opening Endoscopic (ICD-10-PCS; CPT 52000; principal; 2020-01-05 08:30)
DX: C67.9 Malignant neoplasm of bladder, unspecified (principal); D09.0 Carcinoma in situ of bladder; K21.9 Gastro-esophageal reflux disease without esophagitis; E66.9 Obesity, unspecified; G62.9 Polyneuropathy, unspecified
CPT/HCPCS: 52000; NC; 88104; J1885; J2001; J2405

== ENCOUNTER → 2020-02-17 14:31 | Outpatient (BNVA) | payer MEDICARE, SELFPAY | PROVIDERS: PCP Internal Medicine; Referring Provider Internal Medicine; Visit Provider Nurse Practitioner Gerontology | DX: D09.0 Carcinoma in situ of bladder (principal); C67.9 Malignant neoplasm of bladder, unspecified | CPT/HCPCS: 51720; 81003; 99213; J9201 ==

== ENCOUNTER 2020-03-25 02:34 | Outpatient (CLI) | payer MEDICARE, SELFPAY ==
[2020-03-26 13:38] LABS: COVID-19 RT-PCR UVMMC Result Negative (Negative)
== END 2020-03-25 02:54 ==
PROVIDERS: PCP Internal Medicine; Visit Provider Urology
DX: Z11.52 Encounter for screening for COVID-19 (principal)
CPT/HCPCS: U0003

== ENCOUNTER 2020-03-29 06:09 | Day surgery (SDC) | payer MEDICARE, SELFPAY ==
[2020-03-29 06:35] VITALS: BP 150/81; PULSE 70; RESP 16; TEMP 36.6; O2SAT 99
[2020-03-29] MEDS: Lactated Ringers 1,000 ML 80 ML IV (07:01)
--- NOTE | 2020-03-29 07:05 | W.PM.HP.N ---
Date of service: 03/29/20 Time of Service: 07:05 Assessment and Plan Assessment and plan (1) Bladder cancer: Status: Acute Assessment and plan: For cystoscopy with possible transurethral resection of any visible bladder tumor. We will take random bladder and prostatic urethra biopsies if no visible tumor is seen. (2) Carcinoma in situ of bladder: Status: Acute History of Present Illness History of Present Illness Chief Complaint: Bladder cancer Narrative: This is a 69-year-old gentleman who has a history of urothelial cell carcinoma of the bladder. His initial tumor was high-grade and involve the lamina propria. There was carcinoma in situ present. He was treated with intravesical BCG (and gemcitabine when BCG was not available). We have not found any recurrent tumors on cystoscopy, but his most recent cytology was atypical. He presents now for cystoscopy with possible transurethral resection of visible tumor. If no visible tumor is found, we will take random bladder biopsies and biopsies of the prostatic urethra. He tells me that his urine is dark, but he has not seen any blood in the urine. His stream is slow at times. Review of Systems Narrative: No fevers or chills No vision change or dysphasia. Wears glasses No diabetes or thyroid No shortness of breath or hemoptysis No chest pain or palpitations No nausea, vomiting, hepatitis, ulcers, jaundice, diarrhea or constipation No seizures, strokes or peripheral neuropathy No bleeding disorders or anemia No gout [facility] Medical History Abdominal bloating Adenomatous colon polyp Asthma Bladder cancer Carcinoma in situ of bladder Ceruminosis DJD (degenerative joint disease) Patient denies having arthritis or DJD. Dysthymia Elevated blood pressure reading Elevated PSA GERD (gastroesophageal reflux disease) IBS (irritable bowel syndrome) Left shoulder pain Lower abdominal pain Obesity Peripheral neuropathy RLS (restless legs syndrome) Skin lesion Ventricular septal defect Surgical History Colonoscopy - MAC (11/30/15) Hx of cystoscopy Social History Smoking/Tobacco Use Status: Never Smoking risk assessment performed?: Yes Alcohol Intake: current Alcohol Intake frequency: 0-2 drinks per day Alcohol type: wine Drug use: Never Substance use type: does not use Details: alcohol: t-1, 1700 Do you feel safe at home: Yes Do you feel safe in your relationship?: Yes Meds Home Medications and Allergies Home Medications Medication Instructions Recorded Confirmed Type omeprazole 20 mg PO DAILY tab-cap 09/27/15 03/29/20 History albuterol sulfate 90 mcg/actuation 2 puff IH Q6H PRN 04/28/19 03/29/20 History aerosol inhaler tramadol 50 mg PO Q6H PRN #15 tab 05/08/19 03/26/20 Rx amlodipine 5 mg PO DAILY 08/26/19 03/29/20 History multivitamin 1 tab PO DAILY 08/26/19 03/29/20 History hydrocodone-acetaminophen 1 tab PO Q4H PRN PRN 01/05/20 03/26/20 History oxybutynin chloride 5 mg tablet 5 mg PO BID-TID PRN #10 tab 01/05/20 03/26/20 Rx fluticasone propion-salmeterol 1 inh INHALATION PRN PRN 03/29/20 03/29/20 History [Advair Diskus] Allergies Allergy/AdvReac Type Severity Reaction Status Date / Time Penicillins Allergy as child, Unverified 03/29/20 06:29 unknown ropinirole HCl [From Requip] AdvReac Intermediate Contraindic Unverified 03/29/20 06:29 ated Exam Narrative Exam Narrative: He is in no current distress. He is cooperative. His vital signs are documented elsewhere His chest wall motion is normal. His lungs are clear. Cardiac exam shows a regular rate and rhythm Abdomen is soft with no masses He is awake and alert Results Last Vital Signs Temp 36.6 C 03/29/20 06:35 Pulse 70 03/29/20 06:35 Resp 16 03/29/20 06:35 BP 150/81 H 03/29/20 06:35 Pulse Ox 99 03/29/20 06:35 COVID-19 Screening Have you, or household traveled for leisure in last 14 days?: No Had IN PERSON contact w/suspected or confirmed C-19 person: No
[2020-03-29] MEDS: Ciprofloxacin 500 MG TAB PO (07:25)
[2020-03-29] MEDS: Lidocaine 2% Jelly 6 ML SYR (07:50)
--- NOTE | 2020-03-29 07:59 | BLADDER_PTH ---
PATIENT: José Miguel Ryder LOC: [facility] U#:[id number] AGE/SX: 69/M ROOM: RE03/29/[address]: Romain Abdi MD : 1950 BED: DIS: 03/29/2020 SPEC #: [id number] RECD: 03/29/20 12:58 STATUS: [facility] REQ #: [id number] SEAN: 03/29/20 07:[address]: Romain Abdi DEPT: Surgical Specimen RECD BY: Lashell Hyatt ENTERED: 03/29/20 12:59 SP TYPE: Bladder OTHR DR: Santosh Zhong Tissues: 1 - URETHRA BIOPSY 2 - BLADDER BIOPSY Procedures: GROSS AND MICRO LEVEL 4 Comments: [id number]
--- NOTE | 2020-03-29 08:07 | W.PM.DSUDISC ---
Discharge Plan Disposition Patient Disposition: HOME Condition: Stable Discharge Details Reason For Visit: bladder cancer Attending Provider: Romain Abdi Primary Care Provider: Santosh Zhong Home Meds and New Rx's Prescriptions: No Action oxybutynin chloride 5 mg tablet 5 mg PO BID-TID PRN (Reason: bladder spasms) Qty: 10 RF: 0 omeprazole 10 MG capsule,delayed release(DR/EC) 20 mg PO DAILY RF: 0 albuterol sulfate [Ventolin HFA] 90 mcg/actuation HFA aerosol inhaler 2 puff IH Q6H PRNRF: 0 tramadol 50 mg tablet 50 mg PO Q6H PRN (Reason: pain) Qty: 15 RF: 0 amlodipine 5 mg Tablet 5 mg PO DAILY RF: 0 multivitamin Tablet 1 tab PO DAILY RF: 0 hydrocodone-acetaminophen 5-325 mg Tablet 1 tab PO Q4H PRN PRNRF: 0 fluticasone propion-salmeterol [Advair Diskus] 250-50 mcg/dose Blister With Device 1 inh INHALATION PRN PRNRF: 0 Discharge Instructions Additional Instructions: followup to review pathology @ 2 weeks Activity:: Activity as Tolerated Shower/Bathe:: 24 hours Diet:: As Tolerated Discharge Orders Discharge Orders: Discharge Order (Routine); Ordered 03/29/20 Ordered By: Romain Abdi Discharge Data Discharge Comment: Pt must void prior to discharge DS: Diagnosis Discharge Diagnosis (1) Bladder cancer: Status: Acute (2) Carcinoma in situ of bladder: Status: Acute
--- NOTE | 2020-03-29 08:10 | ROE_ITS ---
Date of service: 03/29/20 Time of Service: 08:10 Operative Note Operative Note DATE OF PROCEDURE: 03/29/20 PRE-OP DIAGNOSIS: Urothelial cell carcinoma POST-OP DIAGNOSIS: same PROCEDURE: cystoscopy, random bladder biopsy, transurethral biopsy of prostatic urethra SURGEON: Romain Abdi ANESTHESIA: other (General without intubation) ESTIMATED BLOOD LOSS: 25 PATHOLOGY: other (1. Prostatic urethra biopsy 2. Bladder biopsy) COMPLICATIONS: None Patient's condition: stable Indications: This is a 69-year-old gentleman who has a history of high-grade urothelial cell carcinoma of the bladder which was associated with both carcinoma in situ and involvement of the lamina propria. He was treated with transurethral resection followed by instillation of BCG into the bladder. He has been receiving maintenance doses of gemcitabine (as BCG has not been available to us). On his last surveillance cystoscopy, no obvious tumor was seen, but his cytology was abnormal. He presents for cystoscopy with random bladder biopsies and transurethral resection of prostate tissue to sample the prostatic urethra. Findings: No visible tumor Procedure Description: The patient was brought to the operating room on 03/29/2019. After successful induction of general anesthesia without intubation, he was placed in the dorsal lithotomy position. He was given a dose of preoperative antibiotics. His genitalia was prepped and draped. 2% Xylocaine jelly was instilled into the urethra to act as a local anesthetic. A 22 Kinyarwanda rigid cystoscope was passed through the urethra into the bladder. The urethra and bladder were inspected with the 30 degree lens. The pendulous, bulbous and membranous urethra was appeared normal with no strictures. The prostatic urethra showed some lateral lobe enlargement and the very small median lobe. No papillary lesions were seen in the prostatic urethra. The bladder neck was entered and the bladder mucosa was inspected. Both ureteral orifice ease appeared normal. No blood was seen coming from either side. The bladder mucosa showed no suspicious erythematous areas. No papillary or nodular lesions were seen. We then switched to a 24 Kinyarwanda resectoscope sheath and used bipolar cautery to take a random prostatic urethral biopsies. These biopsies were labeled and sent to pathology for permanent section. The underlying area of the prostate was then cauterized using the coagulation current. We likewise took random bladder biopsies using the resectoscope. These biopsies were labeled separately and sent to pathology for permanent section. These biopsy sites were also cauterized using the coagulation The bladder was emptied, the resectoscope was removed. The patient tolerated this procedure well with no complications. He was taken back to the day surgery unit in stable condition.
[2020-03-29 08:57] VITALS: BP 118/72; PULSE 62; RESP 16; TEMP 36.7; O2SAT 97
== END 2020-03-29 09:41 | disposition home or self-care (01) ==
PROVIDERS: PCP Internal Medicine; Visit Provider Urology
PROC: 0TBB8ZZ Excision of Bladder, Via Natural or Artificial Opening Endoscopic (ICD-10-PCS; CPT 52204; principal; 2020-03-29 07:30)
DX: R82.998 Other abnormal findings in urine (principal); N40.0 Benign prostatic hyperplasia without lower urinary tract symptoms; C67.9 Malignant neoplasm of bladder, unspecified
CPT/HCPCS: 52204; 88305; NC; J1885; J2001; J2405; J2704

== ENCOUNTER → 2020-04-16 14:39 | Outpatient (BNVA) | payer MEDICARE, SELFPAY | PROVIDERS: PCP Internal Medicine; Referring Provider Internal Medicine; Visit Provider Urology | DX: D09.0 Carcinoma in situ of bladder (principal); R30.0 Dysuria; R35.0 Frequency of micturition; C67.9 Malignant neoplasm of bladder, unspecified | CPT/HCPCS: 99213 ==

== ENCOUNTER → 2020-05-12 14:10 | Outpatient (BNVA) | payer MEDICARE, SELFPAY | PROVIDERS: PCP Internal Medicine; Referring Provider Internal Medicine; Visit Provider Nurse Practitioner Gerontology | DX: N40.1 Benign prostatic hyperplasia with lower urinary tract symptoms (principal); N13.8 Other obstructive and reflux uropathy; R30.0 Dysuria; C67.9 Malignant neoplasm of bladder, unspecified | CPT/HCPCS: 81003; 99213 ==

== ENCOUNTER 2020-05-12 16:51 | Outpatient (REF) | payer MEDICARE, SELFPAY | END 2020-05-12 16:52 | disposition home or self-care (01) | LOC: LBN 16:51 | PROVIDERS: PCP Internal Medicine; Visit Provider Nurse Practitioner Gerontology | DX: R30.0 Dysuria (principal); N40.1 Benign prostatic hyperplasia with lower urinary tract symptoms; N13.8 Other obstructive and reflux uropathy | CPT/HCPCS: 87086 ==

== ENCOUNTER → 2020-06-16 08:45 | Outpatient (BNVA) | payer MEDICARE, SELFPAY | PROVIDERS: PCP Internal Medicine; Referring Provider Internal Medicine; Visit Provider Nurse Practitioner Gerontology | DX: C67.9 Malignant neoplasm of bladder, unspecified; D09.0 Carcinoma in situ of bladder | CPT/HCPCS: 51720; 81003; 99214; J9031 ==

== ENCOUNTER 2020-07-15 11:32 | Outpatient (REF) | payer MEDICARE, SELFPAY ==
[2020-07-15 14:06] LABS: HCT 45.5 % (40.0-50.0); HGB 15.3 g/dL (13.5-17.5); MCH 30.8 pg (27.0-33.0); MCHC 33.6 % (32.0-36.0); MCV 91.7 fL (80-95); MPV 10.1 fL (8.0-11.0); Platelet Count 320 10^3/uL (130-400); RBC 4.96 10^6/uL (4.36-5.78); RDW-SD 43.5 fL; WBC 7.48 10^3/uL (4.4-10.8)
[2020-07-15 14:44] LABS: Anion Gap 10.2 mmol/L (3-11); BUN 21 mg/dL (7-18); CO2 25.8 mmol/L (21.0-32.0); CREATININE 0.9 mg/dL (0.70-1.30); Calcium 9.6 mg/dL (8.5-10.1); Chloride 103 mmol/L (98-107); Glucose 125 mg/dL (74-106); Potassium 4.8 mmol/L (3.5-5.1); Sodium 139 mmol/L (136-145); TSH 1.33 uIU/mL (0.36-3.74)
== END 2020-07-15 11:33 | disposition home or self-care (01) ==
LOC: NCHCN 11:32
PROVIDERS: PCP Internal Medicine; Visit Provider Internal Medicine
DX: I10 Essential (primary) hypertension (principal); J45.40 Moderate persistent asthma, uncomplicated; C67.3 Malignant neoplasm of anterior wall of bladder
CPT/HCPCS: 80048; 85027; 84443

== ENCOUNTER 2020-07-20 08:10 | Outpatient (CLI) | payer MEDICARE, SELFPAY ==
--- NOTE | 2020-08-05 10:28 | W.ZIOMONITOR ---
Date of service: 08/05/20 Time of Service: 10:28 14 Day Housekeeper Child Care Referring Provider:: Marly Indications:: AF Note: This is a 14-day monitor order for indication of atrial fibrillation. ?The patient was in normal sinus rhythm for the majority of the recording with an average heart rate of 72 bpm. ?There were 42 episodes of supraventricular tachycardia with the longest lasting 9 beats. None of these were symptomatic. ?There were 5 episodes of NSVT with the longest lasting 21 beats. None of these were symptomatic. ?There were no episodes of atrial fibrillation, no pauses greater than 3 seconds and no evidence of high degree heart block. ?There was 1 patient triggered event that was not associated with arrhythmia.
== END 2020-07-20 08:11 | disposition home or self-care (01) ==
LOC: RT 08:12
PROVIDERS: PCP Internal Medicine; Visit Provider Internal Medicine
DX: I48.91 Unspecified atrial fibrillation (principal)
CPT/HCPCS: 93246

== ENCOUNTER 2020-08-03 02:20 | Outpatient (CLI) | payer MEDICARE, SELFPAY ==
--- NOTE | 2020-08-03 07:34 | DI.US_ITS ---
APPROVED REPORT EXAM: Comprehensive 2D, Doppler, and color-flow Echocardiogram Patient Location: Out-Patient Client Support Professional: Gwendolyn Mcgovern RDCS (AE) Indications: Atrial Fibrillation, VSD Other Information Study Quality: Adequate Conclusion Left Ventricle : The left ventricle is normal size. The left ventricular ejection fraction is within the normal range. There is normal left ventricular wall thickness. There is normal LV segmental wall motion. The left ventricular diastolic function is normal. There is a ventricular septal defect visua lized. Seen best on image 64. LVEF is 58%. Right Ventricle : The right ventricle is normal size. The right ventricular systolic function is norm al. The RVSP is 61.9 mmHg. Atria : The left atrium size is normal. The right atrium size is normal. Mitral Valve : The mitral valve is normal in structure. Trace to mild mitral regurgitation. No eviden ce of mitral valve stenosis. Great Vessels : The aortic root is normal in size. The ascending aorta is normal in size. Aortic arch is normal in caliber. IVC is normal in size and collapses >50% with inspiration. There is no prior study available for comparison. Wall motion Left Ventricle The left ventricle is normal size. The left ventricular ejection fraction is within the normal range. There is normal left ventricular wall thickness. There is normal LV segmental wall motion. The left ventricular diastolic function is normal. There is a ventricular septal defect visualized. Seen best on image 64. LVEF is 58%. Right Ventricle The right ventricle is normal size. The right ventricular systolic function is normal. The RVSP is 61 .9 mmHg. Atria The left atrium size is normal. The right atrium size is normal. The interatrial septum is intact wit h no evidence for an atrial septal defect. Aortic Valve The aortic valve is normal in structure. Aortic valve is trileaflet. There is no aortic valvular sten osis. No aortic regurgitation is present. Mitral Valve The mitral valve is normal in structure. No evidence of mitral valve stenosis. Trace to mild mitral r egurgitation. Tricuspid Valve The tricuspid valve is normal in structure. There is no tricuspid valve stenosis. Trace tricuspid reg urgitation. Pulmonic Valve The pulmonary valve is normal in structure. There is no pulmonic valvular stenosis. Trace pulmonic re gurgitation. Great Vessels The aortic root is normal in size. The ascending aorta is normal in size. Aortic arch is normal in ca liber. IVC is normal in size and collapses >50% with inspiration. 2D Dimensions IVSD d PLAX 1.04 cm M: 0.6-1.2 LV Vol A2C d MOD 90.3 mL LVPW d PLAX 1.01 cm M: 0.6 - 1.2 LV Vol A4C d MOD 169.2 mL LVID d PLAX 4.43 cm M: 4.2 - 5.8 LA vol/ BSA A2C s A-L 28.6 mL/m2 LVDs 2.95 cm M: 2.5 - 4.0 LA vol/ BSA A4C s A-L 36.4 mL/m2 Ao Root d 3.23 cm M: 3.1 - 3.7 LA Vol/ BSA Biplane s A-L 32.8 mL/m2 RA Area A4C 15.56 cm2 LA Area A4C s MOD 23.22 cm2 RA Vol/ BSA A4C s A-L 20.1 mL/m2 LA Area A2C s MOD 20.27 cm2 Ao Asc Diam d 3.46 cm M: 2.6 - 3.4 LV EF A4C MOD 58.4 % LV EF Teichholz 61.3 % LV EF A2C MOD 58.8 % LVEF (Dong's) 58.39 % M: 52 - 72 LV EF Biplane MOD 58.4 % LV Volume 93.76 mL M: 62 - 150 SV 74.86 mL LV Volume Index 43.40 mL/m2 M: 34 - 74 SV Index 34.63 mL/m2 LV Vol Biplane MOD 128.2 mL FS 32.70 % M-Mode TAPSE 2.51 cm (M/F) >1.7 LV Diastology MV E' medial 0.088 (>0.07 m/s) E/A Ratio 0.9 LV E/e MED 7.55 (<14) MV E Vmax 0.67 (0.4-1.3 m/s) MV E' lateral 0.112 (>0.1 m/s) MV A Vmax 0.75 (0.4-1.3 m/s) LV E/e LAT 5.90 (<14) MV E/A Ratio 0.85 MV E/E' medial 7.59 MV E/E' lateral 5.94 Aortic Valve LVOT Area 4.02 cm2 AoV Area Vmax 3.43 cm2 LVOT Vmax 1.08 m/s AoV Area/ BSA (Vmax) 1.59 cm2/m2 LVOT Mean Meek. 0.67 m/s LEXIE Mean Meek. 3.18 cm2 LVOT Peak Grad 4.6 mmHg LEXIE Mean Meek. Index 1.47 cm2/m2 LVOT Mean Grad 2.2 mmHg LVOT VTI 0.227 m LVOT Diam s 2.25 cm AoV Vmax 1.26 m/s Velocity Ratio 0.85 AoV Mean Meek. 0.85 m/s AoV Peak Grad 6.3 mmHg LVOT SV 91.27 mL AoV Mean Grad 3.3 mmHg AoV VTI 0.278 m AoV Area VTI 3.28 cm2 AoV Area/ BSA (VTI) 1.52 cm/m2 Mitral Valve MV DT 243 (160-240 msec) MV PHT 71 msec MV Area PHT 3.12 cm2 MV VTI 0.294 m MV VTI Annulus 0.295 m MV Area VTI 3.10 (4.0-6.0 cm2) Pulmonary Valve PV Vmax 1.34 (0.5-1.5 m/s) RVOT Peak Gr. 2.32 mmHg PV Peak Grad 7.2 mmHg RVOT Mean Gr. 1.15 mmHg PV Mean Grad 3.7 mmHg RVOT Diam s 2.86 cm (M/F) 2.1-3.5 PV VTI 0.276 m RVOT VTI 0.157 m PV SV 177.5 mL RVOT Vmax 0.76 m/s Tricuspid Valve TR Peak Grad 58.9 mmHg TR Vmax 3.84 m/s RA Pressure 3.00 mmHg RVSP (TR) 61.9 mmHg
== END 2020-08-03 02:40 ==
PROVIDERS: PCP Internal Medicine; Visit Provider Internal Medicine
DX: I48.91 Unspecified atrial fibrillation (principal); I34.0 Nonrheumatic mitral (valve) insufficiency
CPT/HCPCS: 93306

== ENCOUNTER 2020-08-17 01:07 | Outpatient (CLI) | payer MEDICARE, SELFPAY ==
--- NOTE | 2020-08-17 | DI.NM_ITS ---
APPROVED REPORT Exam: Pharmacologic paired w/ low level exercise Patient Location: Out-Patient Room/Bed: Stress Nurse: Dulce Denson RN Ordering Provider:RENNY DEMARCO, Contact Number: [phone] BMI: 29.98 Baseline Rhythm: Sinus Rhythm Comment: T wave inversions in leads III, aVF, V6 Indications: AFIB Medical History Medical History: Asthma, Ventricular septal defect, GERD, HTN, Obesity Cardiac Medications: Advair inhaler, Albuterol sulfate, Omeprazole Allergies: Penicillins, Ropinirole Cardiac Risk Factors: HTN, Asthma, Obesity Previous Cardiac Procedures: None Pretest Chest Pain Characteristics: No chest pain Exercise History: Sedentary Physical Disabilities: None Lung Sounds: Clear to auscultation Heart Sounds: Regular Stress Test Details Test: Pharmacologic stress was paired with low level exercise. Nuclear Acquisition: Rest Tc-99m/Stress Tc-99m 1 day Rest Isotope: Tc-99m Sestamibi. Dose: 9.5 Date: 08/17/20 Injection Time: 1115 Stress Isotope: Tc-99m Sestamibi. Dose: 30.2 Date: 08/17/20 Injection Time: 1240 HR Resting HR Supine: 69 bpm Max Heart Rate (APMHR): 151 bpm Resting HR Standin bpm Target HR (85% APMHR): 128 bpm Max HR Achieved: 106 bpm % of APMHR: 70 Recovery HR: 89 bpm BP Resting BP Supine: 160/92 mmHg Resting BP Standin/84 mmHg Max BP: 160/92 mmHg Recovery BP: 158/90 mmHg ECG Resting ECG: Sinus Rhythm Ectopy: None Comment: T wave inversions in leads III, aVF, V6 Stress ECG: Sinus Tachycardia ST Change: No significant ST segment changes noted Arrhythmia: None, None, APC's, VPC's Recovery ECG: Sinus Rhythm Recovery ST Change: No significant ST segment changes noted Recovery Arrhythmia: None Clinical Stress Symptoms: Dyspnea Rate Pressure Product: [id number] Stress ECG Conclusion 1. Resting electrocardiogram showed left ventricular hypertrophy with repolarization abnormality 2. The patient underwent low level exercise coupled with pharmacologic stress 3. Blunted hemodynamics 4. Peak heart rate achieved was 70% of predicted for age 5. There were no significant dysrhythmias Stress Test Summary STAGE HR BP Symptoms NOTES Supine 69 160/92 1 min post Lexiscan injection 100 mild dyspnea, SpO2 96% 3 min post Lexiscan injection 100 150/80 symptoms resolved 6 min post Lexiscan injection 89 158/90 Standing 66 152/84 MPI Conclusion Myocardial perfusion was normal without evidence of ischemia or prior infarction EF 50% Radiologist Interpretation Radiologist agrees with Group Tester's Interpretation. Radiologist Interpretation by: Ken Montes MD Interpretation Date/Time: 08/17/2020 14:35:58
[2020-08-17] MEDS: Regadenoson 0.4 MG/5 ML SYR IVP (12:53)
== END 2020-08-17 01:27 ==
PROVIDERS: PCP Internal Medicine; Visit Provider Internal Medicine
DX: I48.91 Unspecified atrial fibrillation (principal); I10 Essential (primary) hypertension; J45.909 Unspecified asthma, uncomplicated; E66.9 Obesity, unspecified
CPT/HCPCS: 78452; 93016; 93018; 93017; J2785

== ENCOUNTER 2020-09-07 03:00 | Outpatient (CLI) | payer MEDICARE, SELFPAY ==
[2020-09-07 12:27] LABS: Source Nasal/Nares
[2020-09-07 16:48] LABS: COVID-19 PCR Negative (Negative)
== END 2020-09-07 03:01 | disposition home or self-care (01) ==
LOC: LBO 03:00
PROVIDERS: PCP Internal Medicine; Visit Provider Urology
DX: Z20.822 Contact with and (suspected) exposure to COVID-19 (principal); Z01.818 Encounter for other preprocedural examination
CPT/HCPCS: 87635

== ENCOUNTER 2020-09-09 06:24 | Day surgery (SDC) | payer MEDICARE, SELFPAY ==
[2020-09-09 06:37] VITALS: BP 144/82; PULSE 14; TEMP 36.6; O2SAT 97
--- NOTE | 2020-09-09 06:48 | W.PM.HP.N ---
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 His tumor involves the lamina propria and was associated with carcinoma in situ. He was treated with intravesical gemcitabine (when BCG was not available). He has received an induction series along with maintenance doses. He presents now for surveillance cystoscopy and possible TUR bladder tumor. Review of Systems Narrative: No fevers or chills No vision change or dysphasia No diabetes or thyroid Hx asthma. No hemoptysis Concerns for atrial fibrillation but asymptomatic episodes of SVT by monitor. No chest pain Hx GERD. No nausea, vomiting, hepatitis, ulcers, jaundice No seizures, strokes or peripheral neuropathy No bleeding disorders or anemia No gout PFSH Medical History Abdominal bloating Adenomatous colon polyp Asthma Bladder cancer Carcinoma in situ of bladder Ceruminosis DJD (degenerative joint disease) Patient denies having arthritis or DJD. Dysthymia Elevated blood pressure reading Elevated PSA GERD (gastroesophageal reflux disease) IBS (irritable bowel syndrome) Left shoulder pain Lower abdominal pain Obesity Peripheral neuropathy RLS (restless legs syndrome) Skin lesion Ventricular septal defect Surgical History Colonoscopy - MAC (11/30/15) Hx of cystoscopy Social History Smoking/Tobacco Use Status: Never Smoking risk assessment performed?: Yes Alcohol Intake: current Alcohol Intake frequency: 0-2 drinks per day Alcohol type: wine Drug use: Never Substance use type: does not use Do you feel safe at home: Yes Do you feel safe in your relationship?: Yes Meds Allergies and Home Medications Allergies Allergy/AdvReac Type Severity Reaction Status Date / Time Penicillins Allergy as child, Unverified 09/09/20 06:33 unknown ropinirole HCl [From Requip] AdvReac Intermediate Contraindic Unverified 09/09/20 06:33 ated Home Medications Medication Instructions Recorded Confirmed Type omeprazole 20 mg PO DAILY tab-cap 09/27/15 09/09/20 History albuterol sulfate 90 mcg/actuation 2 puff IH Q6H PRN 04/28/19 09/09/20 History aerosol inhaler tramadol 50 mg PO Q6H PRN #15 tab 05/08/19 09/09/20 Rx multivitamin 1 tab PO DAILY 08/26/19 09/09/20 History hydrocodone-acetaminophen 1 tab PO Q4H PRN PRN 01/05/20 09/09/20 History fluticasone propion-salmeterol 1 inh INHALATION PRN PRN 03/29/20 09/09/20 History [Advair Diskus] oxybutynin chloride 5 mg tablet 5 - 10 mg PO QHS PRN #90 tab 05/05/20 09/09/20 Rx Exam Const General: cooperative, comfortable and no acute distress Neck Neck: supple Resp Effort & Inspection: normal respiratory effort Auscultation: clear to auscultation bilaterally Cardio Rate: regular rate Rhythm: regular rhythm GI Palpation: soft and no masses Neuro General: patient alert, patient awake and patient oriented x3 Results Last Vital Signs Temp 36.6 C 09/09/20 06:37 Pulse 14 L 09/09/20 06:37 BP 144/82 H 09/09/20 06:37 Pulse Ox 97 09/09/20 06:37
[2020-09-09] MEDS: Ciprofloxacin 500 MG TAB PO (06:55)
--- NOTE | 2020-09-09 07:00 | W.ANESPRE ---
General Info Date of Service Date Performed: 09/09/20 Height: 5 ft 11 in Weight: 101.8 kg Body Mass Index (BMI): 31.3 Surgical Procedure: Operation Date: 09/09/20 07:40 Proposed Procedures Side Surgeon CHINA Smith MD Meds Allergies and Home Medications Allergies Allergy/AdvReac Type Severity Reaction Status Date / Time Penicillins Allergy as child, Unverified 09/09/20 06:33 unknown ropinirole HCl [From Requip] AdvReac Intermediate Contraindic Unverified 09/09/20 06:33 ated Home Medication Medication Instructions Recorded omeprazole 20 mg PO DAILY tab-cap 09/27/15 albuterol sulfate 90 mcg/actuation 2 puff IH Q6H PRN 04/28/19 aerosol inhaler tramadol 50 mg PO Q6H PRN #15 tab 05/08/19 multivitamin 1 tab PO DAILY 08/26/19 hydrocodone-acetaminophen 1 tab PO Q4H PRN PRN 01/05/20 fluticasone propion-salmeterol 1 inh INHALATION PRN PRN 03/29/20 [Advair Diskus] oxybutynin chloride 5 mg tablet 5 - 10 mg PO QHS PRN #90 tab 05/05/20 Current Visit Medications: Current Medications Generic Name Dose Route Start Last Admin Trade Name Freq PRN Reason Stop Dose Admin Ciprofloxacin HCl 500 mg 09/09/20 06:00 09/09/20 06:55 Ciprofloxacin 500 Mg Tab PO 09/09/20 16:00 500 mg PREOP ABE Administration Ringer's Solution 1,000 mls @ 80 mls/hr 09/09/20 06:00 IV 10/08/20 23:59 INFUSION ABE IV Miscellaneous Supplies 1 each 09/09/20 06:00 Iv Access IV 10/08/20 23:59 DIRECTED ABE Sodium Chloride 0 ml 09/09/20 06:00 Normal Saline Flush 10 Ml Syr IV 10/08/20 23:59 PRN PRN Sodium Chloride 0 ml 09/09/20 06:00 Normal Saline 10 Ml Vial IJ 10/08/20 23:59 DIRECTED PRN Sterile Water 0 ml 09/09/20 06:00 Water,Injection,Sterile 10 Ml Vial IJ 10/08/20 23:59 DIRECTED PRN PFSH Active Problems Active Problems: Problem Status Onset Code Bladder mass N32.89 BPH w urinary obs/LUTS N40.1, N13.8 Carcinoma in situ of bladder D09.0 Bladder cancer C67.9 Medical History Medical History Abdominal bloating Adenomatous colon polyp Asthma Bladder cancer Carcinoma in situ of bladder Ceruminosis DJD (degenerative joint disease) Patient denies having arthritis or DJD. Dysthymia Elevated blood pressure reading Elevated PSA GERD (gastroesophageal reflux disease) IBS (irritable bowel syndrome) Left shoulder pain Lower abdominal pain Obesity Peripheral neuropathy RLS (restless legs syndrome) Skin lesion Ventricular septal defect Surgical History Surgical History Colonoscopy - MAC (11/30/15) Hx of cystoscopy Tobacco Smoking/Tobacco Use Status: Never Alcohol Alcohol Intake: current Alcohol intake frequency: 0-2 drinks per day Alcohol type: wine Substance Use Substance use: Never Substance use type: does not use Vital Signs and Lab Results Vital Signs Most Recent Vital Signs in EMR: Most Recent Vital Signs Temp Pulse BP Pulse Ox 36.6 C 14 L 144/82 H 97 09/09/20 06:37 09/09/20 06:37 09/09/20 06:37 09/09/20 06:37 Lab Results Blood Type / Crossmatch: No Data to Display Complete Blood Count: No Data to Display Complete Metabolic Panel: No Data to Display Liver Function Panel: No Data to Display Coagulation Panel: No Data to Display Cardiac Panel: No Data to Display Arterial Blood Gas: No Data to Display Venous Blood Gas: No Data to Display Pancreas Panel: No Data to Display Thyroid Panel: No Data to Display Infectious Disease: Coronavirus (COVID-19)(PCR) Negative (Negative) 09/07/20 08:14 09/07/20 Coronavirus 2019 Source Nasal/Nares 09/07/20 08:14 09/07/20 Blood Cultures: No Data to Display Toxicology Panel: No Data to Display Imaging and Studies Imaging and Studies Stress Test Summary: Date of Exam: 08/17/20Sex: M Admission Date: 08/17/20 Indications: AFIB MPI Conclusion Myocardial perfusion was normal without evidence of ischemia or prior infarction EF 50% Echocardiogram Summary: Date of Exam: 08/03/20Sex: M Admission Date: 08/03/20 Indications: Atrial Fibrillation, VSD Conclusion Left Ventricle : The left ventricle is normal size. The left ventricular ejection fraction is within the normal range. There is normal left ventricular wall thickness. There is normal LV segmental wall motion. The left ventricular diastolic function is normal. There is a ventricular septal defect visualized. Seen best on image 64. LVEF is 58%. Right Ventricle : The right ventricle is normal size. The right ventricular systolic function is normal. The RVSP is 61.9 mmHg. Atria : The left atrium size is normal. The right atrium size is normal. Mitral Valve : The mitral valve is normal in structure. Trace to mild mitral regurgitation. No evidence of mitral valve stenosis. Great Vessels : The aortic root is normal in size. The ascending aorta is normal in size. Aortic arch is normal in caliber. IVC is normal in size and collapses >50% with inspiration. There is no prior study available for comparison. Anesthesia Assessment and Plan Anesthesia History Personal History: No History of Anesthesia Complications Family History: No Family History of Anesthesia Complications Exercise Tolerance Exercise Tolerance: Metabolic Equivalents>4 Pertinent Negatives Pertinent Negatives: No Symptoms of GERD Cardiac & Pulmonary Exam Cardiac Exam: Normal S1/S2 Heart Sounds Pulmonary Exam: Clear Bilateral Breath Sounds Airway Exam Known Difficult Airway: No Mallampati Class: 2 Mouth Opening: Normal (> 3cm) Thyromental Distance: Greater than 3 cm Neck Range of Motion: Full ROM Neck Circumference: Normal Teeth Condition: Normal Dentition ASA Classification ASA Score: ASA 3 Emergency Case?: No NPO Status NPO Status: NPO Clears >2 hours, Solids >8 hours Anesthesia Plan Resuscitation Status: Full Code Anesthesia Technique: General Anesthesia Airway Planned: Natural Airway Monitors Used: Standard Monitors
[2020-09-09] MEDS: Lactated Ringers 1,000 ML 80 ML IV (07:03)
[2020-09-09 07:22] VITALS: BMI 31.3
--- NOTE | 2020-09-09 07:54 | PAPNONF_PTH ---
PATIENT: José Miguel Ryder LOC: [facility] U#:[id number] AGE/SX: 70/M ROOM: RE09/09/[address]: Romain Abdi MD : [id number] BED: DIS: 09/09/2020 SPEC #: [id number] RECD: 09/09/20 12:48 STATUS: [facility] REQ #: [id number] SEAN: 09/09/20 07:[address]: Romain Abdi DEPT: [facility] Cytology RECD BY: Lashell Hyatt ENTERED: 09/09/20 12:49 SP TYPE: MEGAN CONRAD DR: Santosh Zhong Tissues: 1 - BODY FLUID CYTO(SPUTUM/URINE)[facility] Procedures: BODY FLUID CYTO(URINE/SPUTUM) Comments: [id number] (TOTAL VOLUME = 45 ml'S) (45 ml's URINE & 45 ml's CYTOLYT ADDED)
[2020-09-09] MEDS: Lidocaine 2% Jelly 6 ML SYR (07:59)
--- NOTE | 2020-09-09 07:59 | W.PM.DSUDISC ---
Discharge Plan Disposition Patient Disposition: HOME Condition: Stable Discharge Details Attending Provider: Romain Abdi Primary Care Provider: Santosh Zhong Home Meds and New Rx's Prescriptions: No Action omeprazole 10 MG capsule,delayed release(DR/EC) 20 mg PO DAILY RF: 0 albuterol sulfate [Ventolin HFA] 90 mcg/actuation HFA aerosol inhaler 2 puff IH Q6H PRNRF: 0 oxybutynin chloride 5 mg tablet 5 - 10 mg PO QHS PRN (Reason: bladder spasms) Qty: 90 RF: 0 tramadol 50 mg tablet 50 mg PO Q6H PRN (Reason: pain) Qty: 15 RF: 0 multivitamin Tablet 1 tab PO DAILY RF: 0 hydrocodone-acetaminophen 5-325 mg Tablet 1 tab PO Q4H PRN PRNRF: 0 fluticasone propion-salmeterol [Advair Diskus] 250-50 mcg/dose Blister With Device 1 inh INHALATION PRN PRNRF: 0 Discharge Instructions Additional Instructions: F/U 1 to 2 weeks for cytology results - subsequent followup will depend on cytology results Activity:: Activity as Tolerated Shower/Bathe:: 24 hours Diet:: As Tolerated Discharge Orders Discharge Orders: Discharge Order (Routine); Ordered 09/09/20 Ordered By: Romain Abdi DS: Diagnosis Discharge Diagnosis (1) Bladder cancer: Status: Acute (2) Carcinoma in situ of bladder: Status: Acute
--- NOTE | 2020-09-09 08:02 | W.PM.OP ---
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 He had associated carcinoma in situ. He was treated with transurethral resection followed by intravesical gemcitabine. He has received both an induction series of the chemotherapy along with maintenance doses. He presents now for surveillance cystoscopy. Findings: Normal bladder Procedure Description: The patient was brought to the operating room on 09/09/2020. He was given preoperative IV antibiotics. After successful induction of general anesthesia without intubation, he was placed in the dorsal lithotomy position. His genitalia was prepped and draped. 2% Xylocaine jelly was instilled into the urethra to act as a local anesthetic. A 22 [place] rigid cystoscope was passed through the urethra into the bladder. The urethra and bladder were inspected using a 30 degree lens. The pendulous, bulbar and membranous urethra was all appeared normal with no strictures. No papillary lesions were seen on the prostatic urethra The bladder neck was entered and urine was collected and sent for cytology. The bladder mucosa was inspected. Both ureteral orifices appeared normal with no blood coming from either side. There was a scar on the left side of the bladder from his previous resection. No additional mucosal-based abnormalities were seen. Specifically, no papillary or nodular lesions were identified. We confirmed these findings on reinspection of the bladder using a 70 degree lens. Based on today's cystoscopy, I find no evidence of tumor recurrence. The bladder was emptied and the cystoscope was withdrawn. He tolerated the procedure well and was taken back to the day surgery unit in stable condition.
[2020-09-09 08:10] VITALS: BP 121/70; PULSE 65; RESP 20; TEMP 36; O2SAT 97
[2020-09-09] MEDS: Phenazopyridine 200 MG TAB PO (08:32)
[2020-09-09 08:38] VITALS: BP 123/68; PULSE 61; RESP 16; TEMP 36.5; O2SAT 99
--- NOTE | 2020-09-09 09:21 | W.ANESPOSTOP ---
Postoperative Evaluation Date, Time and Location Date Performed: 09/09/20 Time Performed: 08:38 Patient Location: Day Surgery Unit Vital Signs Most Recent Imported Vital Signs: Most Recent Vital Signs Temp Pulse Resp BP Pulse Ox 36.5 C 61 16 123/68 99 09/09/20 08:38 09/09/20 08:38 09/09/20 08:38 09/09/20 08:38 09/09/20 08:38 Pain Score Most Recent Pain Score: Most Recent Pain Score Pain Level 0 09/09/20 08:38 Assessment Mental Status: Awake (Alert & Oriented to Patient Baseline) Airway and Respiratory Function: Patent airway with normal (patient baseline) respiratory exam Cardiovascular Function: Hemodynamically Stable Hydration Status: Adequately Hydrated Nausea & Vomiting: No Nausea or Vomiting Pain: Pt. Denies Any Pain Peripheral Nerve Block: Patient did not receive a nerve block
== END 2020-09-09 09:15 | disposition home or self-care (01) ==
PROVIDERS: PCP Internal Medicine; Visit Provider Urology
PROC: 0TBB8ZZ Excision of Bladder, Via Natural or Artificial Opening Endoscopic (ICD-10-PCS; CPT 52000; principal; 2020-09-09 07:30)
DX: Z08 Encounter for follow-up examination after completed treatment for malignant neoplasm (principal); Z85.51 Personal history of malignant neoplasm of bladder
CPT/HCPCS: 52000; 88104; J1885; J2405

== ENCOUNTER → 2020-09-24 14:37 | Outpatient (BNVA) | payer MEDICARE, SELFPAY | PROVIDERS: PCP Internal Medicine; Referring Provider Internal Medicine; Visit Provider Urology | DX: C67.9 Malignant neoplasm of bladder, unspecified (principal); D09.0 Carcinoma in situ of bladder; Z71.2 Person consulting for explanation of examination or test findings | CPT/HCPCS: 99213 ==

== ENCOUNTER → 2020-12-24 12:48 | Outpatient (BNVA) | payer MEDICARE, SELFPAY | PROVIDERS: PCP Internal Medicine; Referring Provider Internal Medicine; Visit Provider Urology | DX: D09.0 Carcinoma in situ of bladder (principal); C67.9 Malignant neoplasm of bladder, unspecified; Z51.11 Encounter for antineoplastic chemotherapy | CPT/HCPCS: 51720; 81003; J9030 ==

== ENCOUNTER 2021-01-27 08:36 | Emergency (ER) | payer MEDICARE, SELFPAY ==
--- NOTE | 2021-01-27 08:40 | ED.GENADUL_ITS ---
Discharge Plan Disposition Patient Disposition: HOME Condition: Stable Discharge Details Clinical Impression: Finger laceration Primary Care Provider: Santosh Zhong ED Provider: Max Cardoza Home Meds and New Rx's Prescriptions: Continued omeprazole 10 MG capsule,delayed release(DR/EC) 20 mg PO DAILY RF: 0 albuterol sulfate [Ventolin HFA] 90 mcg/actuation HFA aerosol inhaler 2 puff IH Q6H PRNRF: 0 multivitamin Tablet 1 tab PO DAILY RF: 0 fluticasone propion-salmeterol [Advair Diskus] 250-50 mcg/dose Blister With Device 1 inh INHALATION PRN PRNRF: 0 Discharge Instructions Instructions: Finger Laceration (ED) Additional Instructions: X-ray of your finger is unremarkable. Laceration was repaired without difficulty and your tetanus status was updated. Please keep the area clean and dry, change antibiotic dressing daily and wear finger splint to avoid excessive movement of your finger. [id number] Tylenol as directed for discomfort. Rest, elevate, cool compresses as tolerated. Watch for new or worsening symptoms and return to the ER for any concerns. Sutures removed in approximately 7-10 days. Medical Decision Making 70-year-old gentleman, [id number], presents for a right index finger injury. Plan is to update tetanus, obtain x-ray and repair the laceration. Tetanus updated. X-ray unremarkable per radiology. Laceration repaired without difficulty. Standard discharge and return precautions provided. Patient comfortable with this plan and has no additional questions or concerns. Wound was dressed with antibiotic dressing and a finger splint was applied. This documentation was generated using [employer] dictation system, please disregard any oddities of phrase or misspellings. Imaging Data Radiologic Study: Attestation: I personally reviewed and interpreted this imaging study as follows: Imaging: X-Ray Radiologist's impression: XR FINGER RT INDEX CLINICAL HISTORY [ crush injury. ] [] TECHNIQUE 2D digital imaging was performed. COMPARISON [No exams were available for comparison] [] FINDINGS [No evidence of acute fracture or dislocation. No radiopaque foreign body. There appears to be is skin defect over the dorsal aspect of the PIP joint but no radiopaque foreign body at this level and no fracture.] [] IMPRESSION [No fracture evident.] HPI General Mode of arrival: ambulatory . Date/Time Provider Initiated Documentation: 01/27/21 08:40 . Limitations to Documentation: no limitations . Information obtained by: patient . HPI Narrative: 70-year-old gentleman, [id number], history of bladder cancer, presented to the ER after being evaluated at urgent care for a right index finger injury-laceration. He states about 1 hour ago he was splitting wood, finger became pinched between a wedge in a maul. He denies any other injury. Denies numbness, tingling, weakness. He states the pain is mild, slightly worse with movement. He admits to full range of motion. Tetanus was last updated in 2011. He has not taken any medication prior to arrival. Sent to the ER for concern of open fracture Related Data Home Medications Medication Instructions Recorded Confirmed omeprazole 20 mg PO DAILY tab-cap 09/27/15 01/27/21 albuterol sulfate 90 mcg/actuation 2 puff IH Q6H PRN 04/28/19 01/27/21 aerosol inhaler multivitamin 1 tab PO DAILY 08/26/19 01/27/21 fluticasone propion-salmeterol 1 inh INHALATION PRN PRN 03/29/20 01/27/21 [Advair Diskus] Allergies Allergy/AdvReac Type Severity Reaction Status Date / Time Penicillins Allergy as child, Unverified 01/27/21 08:45 unknown ropinirole HCl [From Requip] AdvReac Intermediate Contraindic Unverified 01/27/21 08:45 ated General LUIS MANUEL: 3 Review of Systems Constitutional Constitutional: Denies fever(s) and Denies weakness Musculoskeletal Musculoskeletal: Denies deformity, Denies arthralgias, Denies numbness, Denies stiffness and Denies tingling Integumentary/Breasts Skin/Breast: Denies erythema Neurologic Neurologic: Denies numbness, Denies tingling and Denies weakness PFSH Active Problem List BPH w urinary obs/LUTS (Acute) Carcinoma in situ of bladder (Acute) Bladder cancer (Acute) Medical History Abdominal bloating Adenomatous colon polyp Asthma Ceruminosis DJD (degenerative joint disease) Patient denies having arthritis or DJD. Dysthymia Elevated blood pressure reading Elevated PSA GERD (gastroesophageal reflux disease) IBS (irritable bowel syndrome) Left shoulder pain Lower abdominal pain Obesity Peripheral neuropathy RLS (restless legs syndrome) Skin lesion Ventricular septal defect Surgical History Hx of cystoscopy Social History Smoking/Tobacco Use Status: Never Smoking risk assessment performed?: Yes Alcohol Intake: current Alcohol Intake frequency: 0-2 drinks per day Alcohol type: wine Drug use: Never Substance use type: does not use Do you feel safe at home: Yes Do you feel safe in your relationship?: Yes Exam Const General: cooperative, healthy appearing, comfortable and no acute distress Orientation: alert and awake HENNM Head: normal to inspection, normocephalic and atraumatic Eyes General: appearance normal, both eyes and all related structures Conjunctivae: conjunctivae normal Neck Neck: normal visual inspection, trachea midline and supple Resp Effort & Inspection: normal respiratory effort and able to speak in complete sentences Cardio Rate: regular rate Rhythm: regular rhythm Skin General skin exam: no rashes or lesions noted Neuro General: patient alert, patient awake, moves all extremities and no focal motor deficits Cognition: normal cognition Speech: speech normal Gait: normal gait Sensory Exam: no sensory deficits noted Extrem General: full ROM and capillary refill normal Hand/finger images: 1. Right index finger irregular 1.5 cm laceration extends from the nailbed proximally over the PIP joint. Full range of motion. Neuro, vascular, tendon intact. 5 out of 5 strength. Bleeding controlled. No foreign body. Psych Appearance: grossly normal Mental Status: mental status grossly normal Procedures Laceration Laceration 1: Site: hand Side (If applicable): right Size (cm): 1.5 Description: irregular and clean Depth: simple, single layer Local Anesthetic: Lidocaine 1% Amount of anesthesia used (mL): 5 Pre-repair: wound explored, irrigated extensively and deep structures intact Skin layer closed with: nylon Size (cm): 4-0 Number of sutures: 3 Technique: simple, interrupted
[2021-01-27 08:42] VITALS: BP 185/86; PULSE 69; RESP 16; TEMP 36.5; O2SAT 99
--- NOTE | 2021-01-27 08:45 | DI.RAD_ITS ---
Exam(s) XR FINGER RT INDEX EXAM: XR FINGER RT INDEX CLINICAL HISTORY: crush injury. TECHNIQUE: 2D digital imaging was performed. COMPARISON: No exams were available for comparison FINDINGS: No evidence of acute fracture or dislocation. No radiopaque foreign body. There appears to be is sk in defect over the dorsal aspect of the PIP joint but no radiopaque foreign body at this level and no fracture. IMPRESSION: No fracture evident. DATA REPOSITORY: RADIATION DOSE DELIVERED:
[2021-01-27 09:47] VITALS: BP 162/88
== END 2021-01-27 09:59 | disposition home or self-care (01) ==
PROVIDERS: Emergency Provider Physician Assistant; PCP Internal Medicine
DX: S61.210A Laceration without foreign body of right index finger without damage to nail, initial encounter (principal); W27.8XXA Contact with other nonpowered hand tool, initial encounter
CPT/HCPCS: 12001; 29130; 90471; 99283; 73140; 99282

== ENCOUNTER 2021-04-01 01:14 | Outpatient (CLI) | payer MEDICARE, SELFPAY | END 2021-04-01 01:15 | disposition home or self-care (01) | LOC: LBO 01:15 | PROVIDERS: PCP Internal Medicine; Visit Provider Urology ==

== ENCOUNTER 2021-04-04 08:51 | Day surgery (SDC) | payer MEDICARE, SELFPAY ==
[2021-04-04 09:00] VITALS: BP 160/94; PULSE 79; RESP 16; TEMP 36.4; O2SAT 99
[2021-04-04] MEDS: Lactated Ringers 1,000 ML 80 ML IV (09:45)
--- NOTE | 2021-04-04 10:32 | W.PM.HP.N ---
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 He also had carcinoma in situ. His inital diagnosis was 04/2019. He had intravesical Gemcitabine once followed by 5 BCG treatments. He then had maintenance doses of BCG. He has had no recurrence since his initial diagnosis. He presents for surveillance cystoscopy with possible TURBT. Review of Systems Narrative: No fevers or chills No vision change or dysphasia No diabetes or thyroid Short of breath related to asthma. No hemoptysis No chest pain or palpitations No nausea, vomiting, hepatitis, ulcers, jaundice No seizures, strokes or peripheral neuropathy No bleeding disorders or anemia No gout PFSH All Active Problems Finger laceration (Acute) BPH w urinary obs/LUTS (Acute) Carcinoma in situ of bladder (Acute) Bladder cancer (Acute) Active Problem List BPH w urinary obs/LUTS (Acute) Carcinoma in situ of bladder (Acute) Bladder cancer (Acute) Medical History Abdominal bloating Adenomatous colon polyp Asthma Ceruminosis DJD (degenerative joint disease) Patient denies having arthritis or DJD. Dysthymia Elevated blood pressure reading Elevated PSA GERD (gastroesophageal reflux disease) IBS (irritable bowel syndrome) Left shoulder pain Lower abdominal pain Obesity Peripheral neuropathy RLS (restless legs syndrome) Skin lesion Ventricular septal defect Surgical History Hx of cystoscopy Social History Smoking/Tobacco Use Status: Never Smoking risk assessment performed?: Yes Alcohol Intake: current Alcohol Intake frequency: 0-2 drinks per day Alcohol type: wine Drug use: Never Substance use type: does not use Do you feel safe at home: Yes Do you feel safe in your relationship?: Yes Meds Allergies and Home Medications Allergies Allergy/AdvReac Type Severity Reaction Status Date / Time Penicillins Allergy as child, Unverified 04/04/21 09:04 unknown ropinirole HCl [From Requip] AdvReac Intermediate Contraindic Unverified 04/04/21 09:04 ated Home Medications Medication Instructions Recorded Confirmed Type omeprazole 20 mg PO DAILY tab-cap 09/27/15 04/04/21 History albuterol sulfate 90 mcg/actuation 2 puff IH Q6H PRN 04/28/19 04/04/21 History aerosol inhaler multivitamin 1 tab PO DAILY 08/26/19 04/04/21 History fluticasone propion-salmeterol 1 inh INHALATION PRN PRN 03/29/20 04/04/21 History [Advair Diskus] Exam Const General: cooperative and comfortable Neck Neck: supple Resp Effort & Inspection: normal respiratory effort Auscultation: clear to auscultation bilaterally Cardio Rate: regular rate Rhythm: regular rhythm GI Inspection: normal to inspection Palpation: soft Neuro General: patient alert, patient awake and patient oriented x3 Results Last Vital Signs Temp 36.4 C L 04/04/21 09:00 Pulse 79 04/04/21 09:00 Resp 16 04/04/21 09:00 BP 160/94 H 04/04/21 09:00 Pulse Ox 99 04/04/21 09:00
[2021-04-04] MEDS: Ciprofloxacin 500 MG TAB PO (10:34)
--- NOTE | 2021-04-04 10:34 | ANES.PREOP_ITS ---
General Info Date of Service Date Performed: 04/04/21 Height: 5 ft 11 in Weight: 102 kg Body Mass Index (BMI): 31.4 Surgical Procedure: Operation Date: 04/04/21 11:25 Proposed Procedures Side Surgeon p cysto, possible Transurethral Resection Bladder Tumor Romain Abdi MD Meds Allergies and Home Medications Allergies Allergy/AdvReac Type Severity Reaction Status Date / Time Penicillins Allergy as child, Unverified 04/04/21 09:04 unknown ropinirole HCl [From Requip] AdvReac Intermediate Contraindic Unverified 04/04/21 09:04 ated Home Medication Medication Instructions Recorded omeprazole 20 mg PO DAILY tab-cap 09/27/15 albuterol sulfate 90 mcg/actuation 2 puff IH Q6H PRN 04/28/19 aerosol inhaler multivitamin 1 tab PO DAILY 08/26/19 fluticasone propion-salmeterol 1 inh INHALATION PRN PRN 03/29/20 [Advair Diskus] Current Visit Medications: Current Medications Generic Name Dose Route Start Last Admin Trade Name Broderickq PRN Reason Stop Dose Admin Ciprofloxacin HCl 500 mg 04/04/21 06:00 04/04/21 10:34 Ciprofloxacin 500 Mg Tab PO 04/04/21 23:59 500 mg PREOP ABE Administration Ringer's Solution 1,000 mls @ 80 mls/hr 04/04/21 06:00 04/04/21 09:45 IV 05/01/21 23:59 80 mls/hr INFUSION ABE Administration IV Miscellaneous Supplies 1 each 04/04/21 06:00 Iv Access IV 05/01/21 23:59 DIRECTED ABE Sodium Chloride 0 ml 04/04/21 06:00 Normal Saline Flush 10 Ml Syr IV 05/01/21 23:59 PRN PRN Sodium Chloride 0 ml 04/04/21 06:00 Normal Saline 10 Ml Vial IJ 05/01/21 23:59 DIRECTED PRN Sterile Water 0 ml 04/04/21 06:00 Water,Injection,Sterile 10 Ml Vial IJ 05/01/21 23:59 DIRECTED PRN PFSH Active Problems Active Problems: Problem Status Onset Code Finger laceration S61.219A BPH w urinary obs/LUTS N40.1, N13.8 Carcinoma in situ of bladder D09.0 Bladder cancer C67.9 Medical History Active Problem List BPH w urinary obs/LUTS (Acute) Carcinoma in situ of bladder (Acute) Bladder cancer (Acute) Medical History Abdominal bloating Adenomatous colon polyp Asthma Ceruminosis DJD (degenerative joint disease) Patient denies having arthritis or DJD. Dysthymia Elevated blood pressure reading Elevated PSA GERD (gastroesophageal reflux disease) IBS (irritable bowel syndrome) Left shoulder pain Lower abdominal pain Obesity Peripheral neuropathy RLS (restless legs syndrome) Skin lesion Ventricular septal defect Medical History Comments:: Pt had neg. covid test from 04/02/21 at [facility] site (result seen on pt's personal laptop). Surgical History Surgical History Hx of cystoscopy Tobacco Smoking/Tobacco Use Status: Never Alcohol Alcohol Intake: current Alcohol intake frequency: 0-2 drinks per day Alcohol type: wine Substance Use Substance use: Never Substance use type: does not use Vital Signs and Lab Results Vital Signs Most Recent Vital Signs in EMR: Most Recent Vital Signs Temp Pulse Resp BP Pulse Ox 36.4 C L 79 16 160/94 H 99 04/04/21 09:00 04/04/21 09:00 04/04/21 09:00 04/04/21 09:00 04/04/21 09:00 Lab Results Blood Type / Crossmatch: No Data to Display Complete Blood Count: No Data to Display Complete Metabolic Panel: No Data to Display Liver Function Panel: No Data to Display Coagulation Panel: No Data to Display Cardiac Panel: No Data to Display Arterial Blood Gas: No Data to Display Venous Blood Gas: No Data to Display Pancreas Panel: No Data to Display Thyroid Panel: No Data to Display Infectious Disease: No Data to Display Blood Cultures: No Data to Display Toxicology Panel: No Data to Display Imaging and Studies Imaging and Studies Study information below may be from another EMR and interpreted by another provider. Please see original notes in EMR for more complete details. Stress Test Summary: Date of Exam: 08/17/20Sex: M Admission Date: 08/17/20 Indications: AFIB MPI Conclusion Myocardial perfusion was normal without evidence of ischemia or prior infarction EF 50% Echocardiogram Summary: Date of Exam: 08/03/20Sex: M Admission Date: 08/03/20 Indications: Atrial Fibrillation, VSD Conclusion Left Ventricle : The left ventricle is normal size. The left ventricular ejection fraction is within the normal range. There is normal left ventricular wall thickness. There is normal LV segmental wall motion. The left ventricular diastolic function is normal. There is a ventricular septal defect visualized. Seen best on image 64. LVEF is 58%. Right Ventricle : The right ventricle is normal size. The right ventricular systolic function is normal. The RVSP is 61.9 mmHg. Atria : The left atrium size is normal. The right atrium size is normal. Mitral Valve : The mitral valve is normal in structure. Trace to mild mitral regurgitation. No evidence of mitral valve stenosis. Great Vessels : The aortic root is normal in size. The ascending aorta is normal in size. Aortic arch is normal in caliber. IVC is normal in size and collapses >50% with inspiration. There is no prior study available for comparison. Anesthesia Assessment and Plan Anesthesia History Personal History: No History of Anesthesia Complications Family History: No Family History of Anesthesia Complications Exercise Tolerance Exercise Tolerance: Metabolic Equivalents>4 Pertinent Negatives Pertinent Negatives: No Symptoms of GERD Cardiac & Pulmonary Exam Cardiac Exam: Normal S1/S2 Heart Sounds Pulmonary Exam: Clear Bilateral Breath Sounds Implantable Cardiac Device Does patient have a Pacemaker or an ICD?: No Airway Exam Known Difficult Airway: No Mallampati Class: 2 Mouth Opening: Normal (> 3cm) Thyromental Distance: Greater than 3 cm Neck Range of Motion: Full ROM Neck Circumference: Normal Teeth Condition: Normal Dentition ASA Classification ASA Score: ASA 3 Emergency Case?: No NPO Status NPO Status: NPO Clears >2 hours, Solids >8 hours Anesthesia Plan Resuscitation Status: Full Code Anesthesia Technique: General Anesthesia Airway Planned: Natural Airway Monitors Used: Standard Monitors
[2021-04-04 10:57] VITALS: BMI 31.4
[2021-04-04] MEDS: Lidocaine 2% Jelly 6 ML SYR (12:17)
--- NOTE | 2021-04-04 12:18 | BLADDER_PTH ---
PATIENT: José Miguel Ryder LOC: [facility] U#:[id number] AGE/SX: 70/M ROOM: RE04/04/[address]: Romain Abdi MD : [id number] BED: DIS: 04/04/2021 SPEC #: [id number] RECD: 04/04/21 13:23 STATUS: [facility] REQ #: [id number] SEAN: 04/04/21 12:[address]: Romain Abdi DEPT: Surgical Specimen RECD BY: Lashell Hyatt ENTERED: 04/04/21 13:24 SP TYPE: Bladder OTHR DR: Santosh Zhong Tissues: 1 - BLADDER BIOPSY Procedures: GROSS AND MICRO LEVEL 4 Comments: [id number]
--- NOTE | 2021-04-04 12:34 | W.PM.DSUDISC ---
Discharge Plan Disposition Patient Disposition: HOME Condition: Stable Discharge Details Reason For Visit: cystoscopy Attending Provider: Romain Abdi Primary Care Provider: Santosh Zhong Home Meds and New Rx's Prescriptions: No Action omeprazole 10 MG capsule,delayed release(DR/EC) 20 mg PO DAILY RF: 0 albuterol sulfate [Ventolin HFA] 90 mcg/actuation HFA aerosol inhaler 2 puff IH Q6H PRNRF: 0 multivitamin Tablet 1 tab PO DAILY RF: 0 fluticasone propion-salmeterol [Advair Diskus] 250-50 mcg/dose Blister With Device 1 inh INHALATION PRN PRNRF: 0 Discharge Instructions Additional Instructions: followup 2 weeks for pathology results Activity:: Activity as Tolerated Shower/Bathe:: 24 hours Diet:: As Tolerated Discharge Orders Discharge Orders: Discharge Order (Routine); Ordered 04/04/21 Ordered By: Romain Abdi DS: Diagnosis Discharge Diagnosis (1) Carcinoma in situ of bladder: Status: Acute (2) Bladder cancer: Status: Acute
[2021-04-04 12:40] VITALS: BP 111/66; PULSE 68; RESP 18; TEMP 36; O2SAT 97
[2021-04-04 12:57] VITALS: BP 111/80; PULSE 63; RESP 16; TEMP 36.3; O2SAT 99
--- NOTE | 2021-04-04 13:02 | ROE_ITS ---
Date of service: 04/04/21 Time of Service: 13:02 Operative Note Operative Note DATE OF PROCEDURE: 04/04/21 PRE-OP DIAGNOSIS: Bladder cancer POST-OP DIAGNOSIS: same PROCEDURE: Cystoscopy, bladder biopsy with fulguration SURGEON: Romain Abdi ANESTHESIA TYPE: Local By Surgeon and General:No Airway Refer to Anesthesia Record ESTIMATED BLOOD LOSS: 10 PATHOLOGY: other (Biopsy) COMPLICATIONS: None Patient was transported to: same day Patient's condition: stable Implants: none Indications: This is a 70-year-old gentleman who has a history of high-grade urothelial cell carcinoma involving the lamina propria. He also had carcinoma in situ. The muscularis was not involved with his original tumor. He was treated with transurethral resection followed by intravesical treatments. He had one gemcitabine treatment but we switched to BCG once it became available. He completed an induction series and has had maintenance doses as well. His initial diagnosis was in April 2019. He has not had any evidence of recurrence since then. He presents for cystoscopy with possible TUR bladder tumor Findings: Papillary mucosa on the left posterior bladder wall Procedure Description: The patient was given oral antibiotics and brought to the operating room on 04/03/2021. After successful induction of general anesthesia, he was placed in the dorsal lithotomy position. His genitalia was prepped and draped. 2% Xylocaine jelly was instilled into the urethra to act as a local anesthetic. A 22 [place] rigid cystoscope was passed through the urethra into the bladder. The bladder and urethra were inspected with a 30 degree lens. The pendulous, bulbar and membranous urethra's appeared normal with no strictures. The prostatic urethra showed some lateral lobe enlargement but no significant median lobe. The bladder neck was entered and the bladder mucosa was inspected. Both ureteral orifices appeared normal with no blood coming from either side. There was a scar on the left lateral bladder wall from his previous TUR bladder tumor. On the left posterior bladder wall, there was a very small area of papillary mucosa. This area measured less than a centimeter in largest dimension. I was able to biopsy the area with cold cup biopsy forceps and then cauterized the biopsy site using bipolar Bugbee. The remainder the bladder was inspected with a 70 degree lens. No additional abnormal areas of mucosa were identified. The bladder was emptied and the cystoscope was withdrawn. The patient tolerated the procedure well with no complications.
[2021-04-04] MEDS: Phenazopyridine 200 MG TAB PO (13:14)
--- NOTE | 2021-04-04 13:24 | W.ANESPOSTOP ---
Postoperative Evaluation Date, Time and Location Date Performed: 04/04/21 Time Performed: 12:55 Patient Location: Day Surgery Unit Vital Signs Most Recent Imported Vital Signs: Most Recent Vital Signs Temp Pulse Resp BP Pulse Ox 36 C L 68 18 111/66 97 04/04/21 12:40 04/04/21 12:40 04/04/21 12:40 04/04/21 12:40 04/04/21 12:40 Pain Score Most Recent Pain Score: Most Recent Pain Score Pain Level 0 04/04/21 12:40 Assessment Mental Status: Awake (Alert & Oriented to Patient Baseline) Airway and Respiratory Function: Patent airway with normal (patient baseline) respiratory exam Cardiovascular Function: Hemodynamically Stable Hydration Status: Adequately Hydrated Nausea & Vomiting: No Nausea or Vomiting Pain: Pt. Denies Any Pain Peripheral Nerve Block: Patient did not receive a nerve block
== END 2021-04-04 13:50 | disposition home or self-care (01) ==
PROVIDERS: PCP Internal Medicine; Visit Provider Urology
PROC: 0TBB8ZZ Excision of Bladder, Via Natural or Artificial Opening Endoscopic (ICD-10-PCS; CPT 52204; principal; 2021-04-04 11:15)
DX: C67.9 Malignant neoplasm of bladder, unspecified (principal); N40.1 Benign prostatic hyperplasia with lower urinary tract symptoms; K21.9 Gastro-esophageal reflux disease without esophagitis; K58.9 Irritable bowel syndrome, unspecified
CPT/HCPCS: 52204; 88305; J1885; J2001; J2405

== ENCOUNTER → 2021-04-22 09:14 | Outpatient (BNVA) | payer MEDICARE, SELFPAY | PROVIDERS: PCP Internal Medicine; Referring Provider Internal Medicine; Visit Provider Urology | DX: C67.9 Malignant neoplasm of bladder, unspecified (principal) | CPT/HCPCS: 99442 ==

== ENCOUNTER → 2021-05-10 08:48 | Outpatient (BNVA) | payer MEDICARE, SELFPAY | PROVIDERS: PCP Internal Medicine; Referring Provider Internal Medicine; Visit Provider Urology | DX: C67.9 Malignant neoplasm of bladder, unspecified (principal); N40.1 Benign prostatic hyperplasia with lower urinary tract symptoms; N13.8 Other obstructive and reflux uropathy | CPT/HCPCS: 51720; 81003; J9030; J9214 ==

== ENCOUNTER → 2021-05-17 08:45 | Outpatient (BNVA) | payer MEDICARE, SELFPAY | PROVIDERS: PCP Internal Medicine; Referring Provider Internal Medicine; Visit Provider Nurse Practitioner Gerontology | DX: D09.0 Carcinoma in situ of bladder (principal); C67.9 Malignant neoplasm of bladder, unspecified | CPT/HCPCS: 51720; 81003; J9030; J9214 ==

== ENCOUNTER → 2021-05-24 08:46 | Outpatient (BNVA) | payer MEDICARE, SELFPAY | PROVIDERS: PCP Internal Medicine; Referring Provider Internal Medicine; Visit Provider Nurse Practitioner Gerontology | DX: N40.1 Benign prostatic hyperplasia with lower urinary tract symptoms (principal); N13.8 Other obstructive and reflux uropathy; C67.9 Malignant neoplasm of bladder, unspecified | CPT/HCPCS: 51720; J9030; J9214 ==

== ENCOUNTER → 2021-05-31 08:45 | Outpatient (BNVA) | payer MEDICARE, SELFPAY | PROVIDERS: PCP Internal Medicine; Referring Provider Internal Medicine; Visit Provider Nurse Practitioner Gerontology | DX: C67.9 Malignant neoplasm of bladder, unspecified (principal) | CPT/HCPCS: 51720; 81003; J9030; J9214 ==

== ENCOUNTER → 2021-06-07 08:39 | Outpatient (BNVA) | payer MEDICARE, SELFPAY | PROVIDERS: PCP Internal Medicine; Referring Provider Internal Medicine; Visit Provider Nurse Practitioner Gerontology | DX: C67.9 Malignant neoplasm of bladder, unspecified (principal) | CPT/HCPCS: 51720; 81003; J9030; J9214 ==

== ENCOUNTER → 2021-06-14 08:46 | Outpatient (BNVA) | payer MEDICARE, SELFPAY | PROVIDERS: PCP Internal Medicine; Referring Provider Internal Medicine; Visit Provider Urology | DX: C67.9 Malignant neoplasm of bladder, unspecified (principal); D09.0 Carcinoma in situ of bladder | CPT/HCPCS: 51720; 81003; J9030; J9214 ==

== ENCOUNTER 2021-08-08 11:03 | Outpatient (REF) | payer MEDICARE, SELFPAY ==
[2021-08-08 15:02] LABS: Abs Immature Grans 0.03 10^3/uL (0.0-0.06); Absolute Basophil Count 0.04 10^3/uL (0.0-0.2); Absolute Eosinophil Count 0.11 10^3/uL (0.0-0.7); Absolute Lymphocyte Count 1.61 10^3/uL (1.2-3.4); Absolute Monocyte Count 0.54 10^3/uL (0.1-0.8); Absolute Neutrophil Count 4.87 10^3/uL (1.2-6.7); Basophils % 0.6; Eosinophils % 1.5; HCT 45.3 % (40.0-50.0); HGB 15.8 g/dL (13.5-17.5); Immature Grans % 0.4; Lymphocytes % 22.4; MCH 31.9 pg (27.0-33.0); MCHC 34.9 % (32.0-36.0); MCV 92 fL (80-95); MPV 10.1 fL (8.0-11.0); Monocytes % 7.5; Neutrophils % 67.6; Platelet Count 300 10^3/uL (130-400); RBC 4.95 10^6/uL (4.36-5.78); RDW 12.8 % (11.8-14.1); RDW-SD 43.3 fL
[2021-08-08 15:47] LABS: Anion Gap 9.6 mmol/L (3-11); BUN 16 mg/dL (7-18); CO2 24.4 mmol/L (21.0-32.0); CREATININE 0.8 mg/dL (0.70-1.30); Calcium 9.6 mg/dL (8.5-10.1); Chloride 103 mmol/L (98-107); Glucose 136 mg/dL (74-106); Potassium 4.5 mmol/L (3.5-5.1); Sodium 137 mmol/L (136-145)
[2021-08-08 16:31] LABS: Calculated LDL 144 mg/dL (<100); Cholesterol 219 mg/dL (<200); HDL Cholesterol 54 mg/dL (40-60); Triglyceride 109 mg/dL (<150)
== END 2021-08-08 11:04 | disposition home or self-care (01) ==
LOC: NCHCN 11:03
PROVIDERS: PCP Internal Medicine; Visit Provider Internal Medicine
DX: I10 Essential (primary) hypertension (principal); K21.9 Gastro-esophageal reflux disease without esophagitis; I48.0 Paroxysmal atrial fibrillation; C67.3 Malignant neoplasm of anterior wall of bladder; J45.40 Moderate persistent asthma, uncomplicated
CPT/HCPCS: 80048; 80061; 85025

== ENCOUNTER 2021-08-23 02:28 | Outpatient (CLI) | payer MEDICARE, SELFPAY | END 2021-08-23 02:29 | disposition home or self-care (01) | LOC: LBO 02:29 | PROVIDERS: PCP Internal Medicine; Visit Provider Urology ==

== ENCOUNTER 2021-08-23 15:00 | Outpatient (REF) | payer MEDICARE, SELFPAY ==
[2021-08-23 11:12] LABS: Source Nasal/Nares
[2021-08-23 13:59] LABS: COVID-19 PCR Negative (Negative)
== END 2021-08-23 15:01 | disposition home or self-care (01) ==
LOC: LBN 15:00
PROVIDERS: PCP Internal Medicine; Visit Provider Urology
DX: Z20.822 Contact with and (suspected) exposure to COVID-19 (principal); Z01.818 Encounter for other preprocedural examination
CPT/HCPCS: 87635; U0005

== ENCOUNTER 2021-08-25 07:30 | Inpatient (IN) | payer MEDICARE, SELFPAY ==
[2021-08-25] VITALS (15 sets, daily range): BP systolic 85–156; BP diastolic 46–88; PULSE 51–71; RESP 12–22; TEMP 34.8–36.7; O2SAT 94–99; BMI 31.6
--- NOTE | 2021-08-25 06:42 | W.PM.HP.N ---
Date of service: 08/25/21 Time of Service: 06:42 Assessment and Plan Assessment and plan (1) BPH w urinary obs/LUTS: Status: Acute (2) Bladder cancer: Status: Acute (3) Carcinoma in situ of bladder: Status: Acute Assessment and plan: We will be prepared to do a transurethral resection of a bladder tumor should we identify what on cystoscopy. Otherwise, we will plan on a transurethral resection of the prostate for relief of his bladder outlet obstruction symptoms. He will stay overnight for continuous bladder irrigation following the procedure. We discussed potential side effects including bleeding, infection and scar tissue/bladder neck contracture/urethral stricture. History of Present Illness History of Present Illness Chief Complaint: Bladder cancer Narrative: This is a 71-year-old gentleman who has a history of urothelial cell carcinoma of the bladder and carcinoma in situ. He has been treated with transurethral resection as well as intravesical BCG (induction series and maintenance doses). More recently, he had a recurrence of high-grade, noninvasive urothelial cell carcinoma. He completed an induction course of BCG plus alpha interferon. He is due for surveillance cystoscopy. He has no gross hematuria. He does have lower urinary tract symptoms that have been refractory to medications. He is agreeable to an elective transurethral resection of the prostate under the same anesthetic. Review of Systems Narrative: No fevers or chills No vision change or dysphasia No diabetes or thyroid Hx asthma. No hemoptysis No chest pain or palpitations No nausea, vomiting, hepatitis, ulcers, jaundice No seizures, strokes or peripheral neuropathy No bleeding disorders or anemia No gout PFSH All Active Problems BPH w urinary obs/LUTS (Acute) Bladder cancer (Acute) Carcinoma in situ of bladder (Acute) Finger laceration (Acute) Medical History Abdominal bloating Adenomatous colon polyp Asthma Ceruminosis DJD (degenerative joint disease) Patient denies having arthritis or DJD. Dysthymia Elevated blood pressure reading Elevated PSA GERD (gastroesophageal reflux disease) IBS (irritable bowel syndrome) Left shoulder pain Lower abdominal pain Obesity Peripheral neuropathy RLS (restless legs syndrome) Skin lesion Ventricular septal defect Pt. stated he was told this was benign and no issues because it was ao small Surgical History Hx of cystoscopy Social History Smoking/Tobacco Use Status: Never Smoking risk assessment performed?: Yes Alcohol Intake: current Alcohol Intake frequency: 0-2 drinks per day Alcohol type: wine Drug use: Never Substance use type: does not use Do you feel safe at home: Yes Do you feel safe in your relationship?: Yes Meds Allergies and Home Medications Allergies Allergy/AdvReac Type Severity Reaction Status Date / Time Penicillins Allergy as child, Unverified 08/25/21 06:28 unknown ropinirole HCl [From Requip] AdvReac Intermediate Contraindic Unverified 08/25/21 06:28 ated Home Medications Medication Instructions Recorded Confirmed Type omeprazole 10 mg capsule,delayed 20 mg PO DAILY 09/27/15 08/25/21 History release albuterol sulfate 90 mcg/actuation 2 puff inhalation Q6H PRN 04/28/19 08/25/21 History aerosol inhaler (Ventolin HFA) multivitamin 1 tab PO DAILY 08/26/19 08/25/21 History fluticasone 250 mcg-salmeterol 50 1 inh inhalation PRN PRN 03/29/20 08/24/21 History mcg/dose blistr powdr for inhalation (Advair Diskus) Exam Const General: cooperative and comfortable Neck Neck: supple Resp Effort & Inspection: normal respiratory effort Auscultation: clear to auscultation bilaterally Cardio Rate: regular rate Rhythm: regular rhythm GI Palpation: soft, no guarding and no masses Neuro General: patient alert, patient awake and patient oriented x3 Results Last Vital Signs Temp 36.7 C 08/25/21 06:31 Pulse 67 08/25/21 06:31 Resp 16 08/25/21 06:31 BP 156/72 H 08/25/21 06:31 Pulse Ox 98 08/25/21 06:31
[2021-08-25] MEDS: Lactated Ringers 1,000 ML 80 ML IV (06:47)
--- NOTE | 2021-08-25 07:12 | W.ANESPRE ---
General Info Date of Service Date Performed: 08/25/21 Height: 5 ft 11 in Weight: 102.7 kg Body Mass Index (BMI): 31.6 Surgical Procedure: Operation Date: 08/25/21 07:40 Proposed Procedure Side Surgeon Truman Zuñiga.Transurethral Resection Bladder Tumor Romain Abdi MD s Transurethral Resection Prostate Romain Abdi MD Meds Allergies and Home Medications Allergies Allergy/AdvReac Type Severity Reaction Status Date / Time Penicillins Allergy as child, Unverified 08/25/21 06:28 unknown ropinirole HCl [From Requip] AdvReac Intermediate Contraindic Unverified 08/25/21 06:28 ated Home Medication Medication Instructions Recorded omeprazole 10 mg capsule,delayed 20 mg PO DAILY 09/27/15 release albuterol sulfate 90 mcg/actuation 2 puff inhalation Q6H PRN 04/28/19 aerosol inhaler (Ventolin HFA) multivitamin 1 tab PO DAILY 08/26/19 fluticasone 250 mcg-salmeterol 50 1 inh inhalation PRN PRN 03/29/20 mcg/dose blistr powdr for inhalation (Advair Diskus) Current Visit Medications: Current Medications Generic Name Dose Route Start Last Admin Trade Name Freq PRN Reason Stop Dose Admin Ringer's Solution 1,000 mls @ 80 mls/hr 08/25/21 06:00 08/25/21 06:47 IV 09/23/21 23:59 80 mls/hr INFUSION ABE Administration Gentamicin Sulfate 160 mg/ 104 mls @ 208 mls/hr 08/25/21 06:00 Sodium Chloride IVPB 08/25/21 16:00 PREOP ABE IV Miscellaneous Supplies 1 each 08/25/21 06:00 Iv Access IV 09/23/21 23:59 DIRECTED ABE Sodium Chloride 0 ml 08/25/21 06:00 Normal Saline Flush 10 Ml Syr IV 09/23/21 23:59 PRN PRN Sodium Chloride 0 ml 08/25/21 06:00 Normal Saline 10 Ml Vial IJ 09/23/21 23:59 DIRECTED PRN Sterile Water 0 ml 08/25/21 06:00 Water,Injection,Sterile 10 Ml Vial IJ 09/23/21 23:59 DIRECTED PRN PFSH Active Problems Active Problems: Problem Status Onset Code BPH w urinary obs/LUTS N40.1, N13.8 Bladder cancer C67.9 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 Dysthymia Elevated blood pressure reading Elevated PSA GERD (gastroesophageal reflux disease) IBS (irritable bowel syndrome) Left shoulder pain Lower abdominal pain Obesity Peripheral neuropathy RLS (restless legs syndrome) Skin lesion Ventricular septal defect Pt. stated he was told this was benign and no issues because it was ao small Medical History Comments:: Pt had neg. covid test from 04/02/21 at [facility] site (result seen on pt's personal laptop). Surgical History Surgical History Hx of cystoscopy Tobacco Smoking/Tobacco Use Status: Never Alcohol Alcohol Intake: current Alcohol intake frequency: 0-2 drinks per day Alcohol type: wine Substance Use Substance use: Never Substance use type: does not use Vital Signs and Lab Results Vital Signs Most Recent Vital Signs in EMR: Most Recent Vital Signs Temp Pulse Resp BP Pulse Ox 36.7 C 67 16 156/72 H 98 08/25/21 06:31 08/25/21 06:31 08/25/21 06:31 08/25/21 06:31 08/25/21 06:31 Lab Results Blood Type / Crossmatch: No Data to Display Complete Blood Count: White Blood Count 7.20 10^3/uL (4.4-10.8) 08/08/21 09:16 Red Blood Count 4.95 10^6/uL (4.36-5.78) 08/08/21 09:16 Hemoglobin 15.8 g/dL (13.5-17.5) 08/08/21 09:16 Hematocrit 45.3 % (40.0-50.0) 08/08/21 09:16 Platelet Count 300 10^3/uL (130-400) 08/08/21 09:16 Complete Metabolic Panel: Sodium Level 137 mmol/L (136-145) 08/08/21 09:16 Potassium Level 4.5 mmol/L (3.5-5.1) 08/08/21 09:16 Chloride Level 103 mmol/L (98-107) 08/08/21 09:16 Carbon Dioxide Level 24.4 mmol/L (21.0-32.0) 08/08/21 09:16 Blood Urea Nitrogen 16 mg/dL (7-18) 08/08/21 09:16 Creatinine 0.8 mg/dL (0.70-1.30) 08/08/21 09:16 Estimated GFR/1.73 m2 >= 60.00 (mL/min/1.73m2) 08/08/21 09:16 Calcium Level 9.6 mg/dL (8.5-10.1) 08/08/21 09:16 Glucose Level 136 mg/dL (74-106) H 08/08/21 09:16 Liver Function Panel: No Data to Display Coagulation Panel: No Data to Display Cardiac Panel: No Data to Display Arterial Blood Gas: No Data to Display Venous Blood Gas: No Data to Display Pancreas Panel: No Data to Display Thyroid Panel: No Data to Display Infectious Disease: Coronavirus (COVID-19)(PCR) Negative (Negative) 08/23/21 09:00 Coronavirus 2019 Source Nasal/Nares 08/23/21 09:00 Blood Cultures: No Data to Display Toxicology Panel: No Data to Display Imaging and Studies Imaging and Studies Study information below may be from another EMR and interpreted by another provider. Please see original notes in EMR for more complete details. Stress Test Summary: Date of Exam: 08/17/20Sex: M Admission Date: 08/17/20 Indications: AFIB MPI Conclusion Myocardial perfusion was normal without evidence of ischemia or prior infarction EF 50% Echocardiogram Summary: Date of Exam: 08/03/20Sex: M Admission Date: 08/03/20 Indications: Atrial Fibrillation, VSD Conclusion Left Ventricle : The left ventricle is normal size. The left ventricular ejection fraction is within the normal range. There is normal left ventricular wall thickness. There is normal LV segmental wall motion. The left ventricular diastolic function is normal. There is a ventricular septal defect visualized. Seen best on image 64. LVEF is 58%. Right Ventricle : The right ventricle is normal size. The right ventricular systolic function is normal. The RVSP is 61.9 mmHg. Atria : The left atrium size is normal. The right atrium size is normal. Mitral Valve : The mitral valve is normal in structure. Trace to mild mitral regurgitation. No evidence of mitral valve stenosis. Great Vessels : The aortic root is normal in size. The ascending aorta is normal in size. Aortic arch is normal in caliber. IVC is normal in size and collapses >50% with inspiration. There is no prior study available for comparison. Anesthesia Assessment and Plan Anesthesia History Personal History: No History of Anesthesia Complications Family History: No Family History of Anesthesia Complications Exercise Tolerance Exercise Tolerance: Metabolic Equivalents>4 Pertinent Negatives Pertinent Negatives: No Symptoms of GERD, No Major Cardiovascular Symptoms or Complaints (Periods of a fib non symptoms) and No Major Pulmonary Symptoms or Complaints (Asthma with albuterol inhalers twice daily , took at home) Cardiac & Pulmonary Exam Cardiac Exam: Normal S1/S2 Heart Sounds Pulmonary Exam: Clear Bilateral Breath Sounds Implantable Cardiac Device Does patient have a Pacemaker or an ICD?: No Airway Exam Known Difficult Airway: No Mallampati Class: 1 Mouth Opening: Normal (> 3cm) Thyromental Distance: Greater than 3 cm Neck Range of Motion: Full ROM Neck Circumference: Normal Teeth Condition: Normal Dentition ASA Classification ASA Score: ASA 2 Emergency Case?: No NPO Status NPO Status: NPO Clears >2 hours, Solids >8 hours Anesthesia Plan Resuscitation Status: Full Code Anesthesia Technique: General Anesthesia Airway Planned: LMA Monitors Used: Standard Monitors
[2021-08-25] MEDS: GENTAMICIN 160 MG in Normal Saline 100 ML 208 MG IVPB (07:31)
[2021-08-25] MEDS: Lidocaine 2% Jelly 6 ML SYR (07:56)
--- NOTE | 2021-08-25 08:30 | PROST_PTH ---
PATIENT: José Miguel Ryder LOC: U#:[id number] AGE/SX: 71/M ROOM: [id number] RE08/25/[address]: Romain Abdi MD : 1950 BED: A DIS: 08/26/2021 SPEC #: [id number] RECD: 08/25/21 12:42 STATUS: SOUT REQ #: [id number] SEAN: 08/25/21 08:[address]: Romain Abdi DEPT: Surgical Specimen RECD BY: Lashell Hyatt ENTERED: 08/25/21 12:42 SP TYPE: PROST OTHR DR: Santosh Zhong Tissues: 1 - PROSTATE CURRETTINGS Procedures: GROSS AND MICRO LEVEL 4 Comments: [id number]
--- NOTE | 2021-08-25 09:02 | ROE_ITS ---
Date of service: 08/25/21 Time of Service: 09:02 Operative Note Operative Note DATE OF PROCEDURE: 08/25/21 PRE-OP DIAGNOSIS: 1. Bladder Cancer 2. 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 He has been treated with previous transurethral resection. He had an induction series of BCG along with some maintenance doses. He then had a recurrence of high-grade, noninvasive urothelial cell carcinoma. He has since had an induction series of BCG plus alpha interferon. He presents now for surveillance cystoscopy. He is also having obstructive voiding symptoms and is interested in having a transurethral resection of the prostate at the same time. Findings: 1. No recurrent bladder tumor 2. Enlarged prostate with lateral lobe enlargement and elevated bladder neck - no significant median lobe Procedure Description: The patient was given a dose of IV antibiotics. He was brought to the operating room on 08/25/2021. After successful induction of general anesthesia, he was placed in the dorsal lithotomy position. His genitalia was prepped and draped. 2% Xylocaine jelly was instilled into the urethra to act as a local anesthetic. A 24 Turkmen rigid cystoscope was passed through the urethra into the bladder. We used the visual obturator and a 30 degree lens to inspect the urethra and bladder. The pendulous, bulbar and membranous urethra appeared normal with no strictures. The prostatic urethra showed some lateral lobe enlargement and an elevated bladder neck. No significant median lobe of the bladder was identified. The bladder neck was then entered and the bladder mucosa was inspected. Both ureteral orifices appeared normal with no blood coming from either side. The remainder of the bladder mucosa appeared normal with no papillary or nodular abnormalities. With no obvious bladder tumor that requires resection, we then used an [employer] resectoscope and bipolar cautery to perform transurethral resection of the prostate from the bladder neck out to the verumontanum. The depth of the resection was down to the prostatic capsule. All resected tissue was evacuated and sent to pathology for permanent section. As we completed our resection, we switched to the plasma button and vaporized the remainder of the prostate down to the capsule. At the completion of the procedure, the prostatic fossa appeared open. The bladder was filled with irrigant. A 22 Turkmen hematuria catheter was passed through the urethra into the bladder. The catheter balloon was inflated with 30 cc of sterile water. Continuous bladder irrigation was then begun. Traction was placed on the catheter until the irrigant became clear. The patient tolerated the procedure well with no complications. He was taken to the recovery room in stable condition.
[2021-08-25] MEDS: fentaNYL 100 MCG/2 ML VIAL IVP (10:03)
[2021-08-25] MEDS: Lactated Ringers 1,000 ML 125 ML IV ×2 (11:32→19:38)
[2021-08-25] MEDS: Hyoscyamine 0.125 MG SL/ORAL/CHEW SL ×2 (11:57→12:57)
[2021-08-25] MEDS: Phenazopyridine 100 MG TAB 200 MG PO (12:07)
--- NOTE | 2021-08-25 14:30 | CHAPLAIN ---
José Miguel was resting in bed when I visited. He told me about his surgery and said he expects he will recover well. His has been into visit him. He shared some personal history, and said he was very comfortable being at [facility] and finds the staff very kind and caring.
--- NOTE | 2021-08-25 15:55 | W.ANESPOSTOP ---
Postoperative Evaluation Date, Time and Location Date Performed: 08/25/21 Time Performed: 12:52 Patient Location: Day Surgery Unit Vital Signs Most Recent Imported Vital Signs: Most Recent Vital Signs Temp Pulse Resp BP Pulse Ox 36.2 C L 60 18 128/81 98 08/25/21 12:25 08/25/21 12:25 08/25/21 12:25 08/25/21 12:25 08/25/21 12:25 Pain Score Most Recent Pain Score: Most Recent Pain Score Pain Level 0 08/25/21 12:25 Assessment Mental Status: Awake (Alert & Oriented to Patient Baseline) Airway and Respiratory Function: Patent airway with normal (patient baseline) respiratory exam Cardiovascular Function: Hemodynamically Stable and Hemodynamically Unstable (See Explanation) Hydration Status: Adequately Hydrated Nausea & Vomiting: No Nausea or Vomiting Pain: Pt. Denies Any Pain Peripheral Nerve Block: Patient did not receive a nerve block
[2021-08-25] MEDS: Docusate Sodium 100 MG CAP PO (19:36)
[2021-08-25] MEDS: diazePAM 5 MG TAB PO (19:36)
[2021-08-25] MEDS: Phenazopyridine 200 MG TAB PO (19:36)
[2021-08-25] MEDS: traMADol 50 MG TAB PO (19:36)
[2021-08-26] MEDS: diazePAM 5 MG TAB PO (00:08)
[2021-08-26] MEDS: Lactated Ringers 1,000 ML 125 ML IV (02:58)
[2021-08-26] MEDS: Phenazopyridine 200 MG TAB PO (03:01)
[2021-08-26 05:51] VITALS: BP 127/77; PULSE 82; RESP 16; TEMP 35.6; O2SAT 91
[2021-08-26 06:28] LABS: HGB 12.4 g/dL (13.5-17.5); MCH 31.7 pg (27.0-33.0); MCHC 34.4 % (32.0-36.0); MCV 92 fL (80-95); MPV 9.5 fL (8.0-11.0); Platelet Count 238 10^3/uL (130-400); RBC 3.91 10^6/uL (4.36-5.78); RDW 12.9 % (11.8-14.1); RDW-SD 43.6 fL; WBC 14.47 10^3/uL (4.4-10.8)
[2021-08-26 06:45] LABS: Anion Gap 4.2 mmol/L (3-11); BUN 17 mg/dL (7-18); CO2 27.8 mmol/L (21.0-32.0); CREATININE 0.9 mg/dL (0.70-1.30); Calcium 8.5 mg/dL (8.5-10.1); Chloride 105 mmol/L (98-107); Glucose 135 mg/dL (74-106); Potassium 4.4 mmol/L (3.5-5.1); Sodium 137 mmol/L (136-145)
--- NOTE | 2021-08-26 07:16 | W.PM.PROGNOT ---
Date of Service Date of service: 08/26/21 Time of Service: 07:52 Assessment and Plan Assessment and plan (1) BPH w urinary obs/LUTS: Status: Acute Assessment and plan: We will do continue the IV fluids and the bladder irrigation. As long as the urine remains transparent, we will discharge him to home with his catheter in place. He will follow-up early next week for catheter removal. Subjective Subjective Interval history since last seen: After initially having bladder spasms, he has been quite comfortable overnight. He has no pain at this time. He is able to tolerate oral nutrition and medications. Exam Narrative Exam Narrative: He looks well. His vital signs are documented elsewhere in the chart His urine is grossly clear He is awake and alert We reviewed his lab work. His renal function is stable. His hemoglobin is not excessively low postoperatively next Objective Last Vital Signs Temp 35.6 C L 08/26/21 05:51 Pulse 82 08/26/21 05:51 Resp 16 08/26/21 05:51 BP 127/77 08/26/21 05:51 Pulse Ox 91 L 08/26/21 05:51 Laboratory Results - last 24 hr 08/26/21 08/26/21 06:15 06:15 WBC 14.47 H RBC 3.91 L Hgb 12.4 L Hct 36.0 L MCV 92 MCH 31.7 MCHC 34.4 RDW 12.9 Plt Count 238 MPV 9.5 Sodium 137 Potassium 4.4 Chloride 105 Carbon Dioxide 27.8 Anion Gap 4.2 BUN 17 Creatinine 0.9 Estimated GFR/1.73 m2 >= 60.00 Glucose 135 H Calcium 8.5
[2021-08-26] MEDS: Docusate Sodium 100 MG CAP PO (07:43)
[2021-08-26] MEDS: Omeprazole 20 MG CAPCR PO (07:43)
[2021-08-26] MEDS: levoFLOXacin 500 MG TAB PO (07:43)
[2021-08-26 07:47] VITALS: BP 148/74; PULSE 60; RESP 18; TEMP 35.6; O2SAT 97
--- NOTE | 2021-08-26 07:54 | W.PM.DS.N ---
Date of service: 08/26/21 Time of Service: 07:55 DS: Diagnosis Discharge Diagnosis (1) BPH w urinary obs/LUTS: Status: Acute Discharge Plan Disposition Patient Disposition: HOME Condition: Stable Discharge Details Reason For Visit: BPH Admit Date/Time: 08/25/21 06:14 Admit Provider: Romain Abdi Attending Provider: Romain Abdi Primary Care Provider: Santosh Zhong Hospital Course Hospital Course: The patient was admitted and taken to the operating room on 08/25/2021. We did cystoscopy and found no evidence of recurrent bladder cancer. He ended a transurethral resection of the prostate for his bladder outlet obstruction. After surgery, he was admitted to the floor for continuous bladder irrigation. He did have some bladder spasms and immediately following the procedure but these responded to anticholinergic medications. On postoperative day #1, his urine was clear and his bladder irrigation is being slowed with the plan to discontinue it later this morning. He is able to tolerate oral medications without difficulty, so his IV fluids have been discontinued. He is being discharged to home on postoperative day #1. His Cannon catheter remains in place and is being hooked to a leg bag. Home Meds and New Rx's Prescriptions: No Action omeprazole 10 MG capsule,delayed release(DR/EC) 20 mg PO DAILY albuterol sulfate [Ventolin HFA] 90 mcg/actuation HFA aerosol inhaler 2 puff IH Q6H PRN multivitamin Tablet 1 tab PO DAILY fluticasone propion-salmeterol [Advair Diskus] 250-50 mcg/dose Blister With Device 1 inh INHALATION PRN PRN Discharge Instructions Additional Instructions: Cannon catheter to leg bag during the day and large drainage bag at night Follow-up early next week for catheter removal Follow-up appointment with me in approximately 2 weeks to review his surgical pathology No lifting over 10 to 20 pounds until follow-up visit Activity:: see above Equipment/Supplies:: cannon to drainage Diet:: As Tolerated Discharge Orders Discharge Orders: Discharge Order (Routine); Ordered 08/26/21 Ordered By: Romain Abdi DS: Summary Time Spent with Patient providing and/or coordinating discharge services: Less than 30 minutes Status at Discharge Functional status at discharge: independent ambulation Overall status at discharge: patient is back to baseline Mental Status: mental status grossly normal Speech and Movement: speech and movement normal Mood: congruent mood Affect: normal affect Exam Narrative Exam Narrative: On the morning of discharge, the patient looks well. Does not appear septic or toxic His vital signs are documented elsewhere in the chart His chest wall motion is normal. He is not short of breath at rest His abdomen is soft with no mass His urine is clear with bladder irrigation running at a slow rate He is awake and alert. Psych Mental Status: mental status grossly normal Speech and Movement: speech and movement normal Mood: congruent mood Affect: normal affect DS: Data Vitals/I&O Vitals and I&O: Vital Signs Temperature 35.6 C L 08/26/21 07:47 Temperature Source Tympanic 08/26/21 07:47 Pulse 60 08/26/21 07:47 Pulse Rhythm Regular 08/26/21 03:09 Respiratory Rate 18 08/26/21 07:47 Respiratory Effort Non-Labored 08/26/21 03:09 Respiratory Depth Normal 08/26/21 03:09 Respiratory Pattern Normal 08/26/21 03:09 Blood Pressure 148/74 H 08/26/21 07:47 Pulse Oximetry 97 08/26/21 07:47 Respiratory End-tidal CO2 19 08/25/21 10:05 Oxygen Delivery Method Room Air 08/26/21 07:47 Oxygen Flow Rate 0 08/26/21 07:47 Pain Level 0 08/26/21 07:47 Intake & Output 08/25/21 08/25/21 08/26/21 11:59 23:59 11:59 Intake Total 954 / 2404 1450 / 2404 916.667 / 916.667 Output Total 1050 / 1050 400 / 400 Balance -96 / 1354 1450 / 1354 516.667 / 516.667 Weight 102.7 kg Intake: IV 954 / 2104 1150 / 2104 916.667 / 916.667 Oral 300 / 300 Output: Urine 1050 / 1050 400 / 400 Other: Urine Color Linares Linares Dark Jasmine Urine Appearance Hematuria Clear Clear Urine Odor Normal Comment cbi Spasms have decreased Emesis Description None Voiding Methods Toilet Data Completed and Pending Labs on day of discharge: Labs from last 24 hours 08/26/21 08/26/21 06:15 06:15 WBC 14.47 H RBC 3.91 L Hgb 12.4 L Hct 36.0 L MCV 92 MCH 31.7 MCHC 34.4 RDW 12.9 Plt Count 238 MPV 9.5 Sodium 137 Potassium 4.4 Chloride 105 Carbon Dioxide 27.8 Anion Gap 4.2 BUN 17 Creatinine 0.9 Estimated GFR/1.73 m2 >= 60.00 Glucose 135 H Calcium 8.5 PFSH All Active Problems BPH w urinary obs/LUTS (Acute) Bladder cancer (Acute) Carcinoma in situ of bladder (Acute) Finger laceration (Acute) Medical History Abdominal bloating Adenomatous colon polyp Asthma Ceruminosis DJD (degenerative joint disease) Patient denies having arthritis or DJD. Dysthymia Elevated blood pressure reading Elevated PSA GERD (gastroesophageal reflux disease) IBS (irritable bowel syndrome) Left shoulder pain Lower abdominal pain Obesity Peripheral neuropathy RLS (restless legs syndrome) Skin lesion Ventricular septal defect Pt. stated he was told this was benign and no issues because it was ao small Surgical History Hx of cystoscopy Social History Smoking/Tobacco Use Status: Never Smoking risk assessment performed?: Yes Alcohol Intake: current Alcohol Intake frequency: 0-2 drinks per day Alcohol type: wine Drug use: Never Substance use type: does not use Do you feel safe at home: Yes Do you feel safe in your relationship?: Yes
[2021-08-26] MEDS: Multivitamin TAB 1 TAB PO (09:33)
--- NOTE | 2021-08-26 11:56 | NUR.NOTE ---
Continuous bladder irrigation discontinued at 0900. Patient tolerated well. Educated on cannon leg bag attachment. Lacted Ringers discontinued per Dr. Abdi's order. Patient was able to ambulate in the canas, no complaints of pain or dizziness.
== END 2021-08-26 13:05 | disposition home or self-care (01) | DRG 713 ==
LOC: MS 08-26 09:29 → PDS 08-26 10:22 → MS 08-26 10:23
PROVIDERS: Admitting Provider Urology; PCP Internal Medicine; Visit Provider Urology
PROC: 0TBB8ZZ Excision of Bladder, Via Natural or Artificial Opening Endoscopic (ICD-10-PCS; CPT 52601; principal; 2021-08-25 07:30)
DX: N13.8 Other obstructive and reflux uropathy (principal); N40.1 Benign prostatic hyperplasia with lower urinary tract symptoms; C67.9 Malignant neoplasm of bladder, unspecified; D09.0 Carcinoma in situ of bladder; J45.909 Unspecified asthma, uncomplicated; K21.9 Gastro-esophageal reflux disease without esophagitis; K58.9 Irritable bowel syndrome, unspecified; E66.9 Obesity, unspecified; Z68.31 Body mass index [BMI] 31.0-31.9, adult; N32.89 Other specified disorders of bladder; N41.4 Granulomatous prostatitis
CPT/HCPCS: 52601; 36415; 80048; 85027; 88305; 99222; 99238; J1100; J1580; J1885; J2250; J2405; J3010; J3490

== ENCOUNTER → 2021-08-31 07:39 | Outpatient (BNVA) | payer MEDICARE, SELFPAY | PROVIDERS: PCP Internal Medicine; Referring Provider Internal Medicine; Visit Provider Nurse Practitioner Gerontology | DX: Z85.51 Personal history of malignant neoplasm of bladder (principal); N40.1 Benign prostatic hyperplasia with lower urinary tract symptoms; N13.8 Other obstructive and reflux uropathy ==

== ENCOUNTER → 2021-09-13 10:28 | Outpatient (BNVA) | payer MEDICARE, SELFPAY | PROVIDERS: PCP Internal Medicine; Referring Provider Internal Medicine; Visit Provider Urology | DX: Z85.51 Personal history of malignant neoplasm of bladder (principal); N40.1 Benign prostatic hyperplasia with lower urinary tract symptoms; N13.8 Other obstructive and reflux uropathy ==

== ENCOUNTER 2021-10-03 04:25 | Outpatient (CLI) | payer MEDICARE, SELFPAY ==
--- NOTE | 2021-10-27 09:10 | W.CARDEVENT ---
Date of service: 10/27/21 Time of Service: 09:10 Cardiac Event Recorder Referring Provider:: Santosh Zhong Indications:: Atrial fibrillation Cardiac Event Note: This is a 14-day cardiac event monitor, ordered for atrial fibrillation Rhythm throughout was sinus with an average heart rate of 72. Minimum was 46, maximum 121 There were rare ventricular ectopic beats. There was 1 ventricular triplet there were rare atrial premature beats. There were rare to occasional atrial premature beats. There was no atrial fibrillation.. Several brief self-limited atrial runs occurred, generally 3-4 beats in duration There was no high-grade AV block, no pauses greater than 3 seconds the patient's symptoms were reported
== END 2021-10-03 04:26 | disposition home or self-care (01) ==
LOC: RT 04:25
PROVIDERS: PCP Internal Medicine; Visit Provider Internal Medicine
DX: I48.91 Unspecified atrial fibrillation (principal)
CPT/HCPCS: 93246

== ENCOUNTER → 2021-10-25 13:36 | Outpatient (BNVA) | payer MEDICARE, SELFPAY | PROVIDERS: PCP Internal Medicine; Referring Provider Internal Medicine; Visit Provider Urology | DX: C67.9 Malignant neoplasm of bladder, unspecified (principal); D09.0 Carcinoma in situ of bladder; R35.1 Nocturia ==

== ENCOUNTER 2021-10-27 09:10 | Outpatient (CLI) | payer MEDICARE, SELFPAY | END 2021-10-27 09:11 | LOC: CARDO 10-28 13:00 | PROVIDERS: PCP Internal Medicine; Referring Provider Internal Medicine; Visit Provider Internal Medicine Cardiovascular Disease | DX: I48.91 Unspecified atrial fibrillation (principal); I49.1 Atrial premature depolarization; I49.3 Ventricular premature depolarization | CPT/HCPCS: 93248 ==

== ENCOUNTER 2021-12-16 17:33 | Outpatient (REF) | payer MEDICARE, SELFPAY ==
[2021-12-18 10:23] LABS: COVID-19 RT-PCR UVMMC Result Negative (Negative)
== END 2021-12-16 17:34 | disposition home or self-care (01) ==
LOC: LBN 17:33
PROVIDERS: PCP Internal Medicine; Visit Provider Physician Assistant Medical
DX: Z20.822 Contact with and (suspected) exposure to COVID-19 (principal)
CPT/HCPCS: U0003

== ENCOUNTER → 2022-01-11 13:38 | Outpatient (BNVA) | payer MEDICARE, SELFPAY | PROVIDERS: PCP Internal Medicine; Referring Provider Internal Medicine; Visit Provider Nurse Practitioner Gerontology | DX: C67.9 Malignant neoplasm of bladder, unspecified (principal); D09.0 Carcinoma in situ of bladder | CPT/HCPCS: 99213 ==

== ENCOUNTER 2022-01-11 14:11 | Outpatient (REF) | payer MEDICARE, SELFPAY ==
--- NOTE | 2022-01-11 13:50 | PAPNONF_PTH ---
PATIENT: José Miguel Ryder LOC: [facility] U#:[id number] AGE/SX: 71/M ROOM: RE01/11/[address]: Wanda Tijerina DNP : 1950 BED: DIS: 01/11/2022 SPEC #: [id number] RECD: 01/11/22 18:30 STATUS: [place] REQ #: [id number] SEAN: 01/11/22 13:[address]: Wanda Tijerina DEPT: [facility] Cytology RECD BY: Lashell Hyatt ENTERED: 01/11/22 18:30 SP TYPE: PAPBALDOMEROF [place] DR: Santosh Zhong Tissues: 1 - BODY FLUID CYTO(SPUTUM/URINE)[facility] Procedures: BODY FLUID CYTO(URINE/SPUTUM) Comments: [id number] (TOTAL VOLUME = 40 ml) (REFRIGERATED) (40 ml URINE & 40 ml CYTOLYT ADDED)
== END 2022-01-11 14:12 | disposition home or self-care (01) ==
LOC: LBN 14:11
PROVIDERS: PCP Internal Medicine; Visit Provider Nurse Practitioner Gerontology
DX: Z85.51 Personal history of malignant neoplasm of bladder (principal); R82.998 Other abnormal findings in urine
CPT/HCPCS: 88104

== ENCOUNTER 2022-02-13 10:00 | Day surgery (SDC) | payer MEDICARE, SELFPAY ==
[2022-02-13 10:50] VITALS: BP 166/90; PULSE 69; RESP 13; TEMP 36.7; O2SAT 98
--- NOTE | 2022-02-13 11:01 | ANES.PREOP_ITS ---
General Info Date of Service Date Performed: 02/13/22 Height: 5 ft 11 in Weight: 101.3 kg Body Mass Index (BMI): 31.1 Surgical Procedure: Operation Date: 02/13/22 12:40 Proposed Procedure Side Surgeon p Cysto w/ Possible Transurethral Resection Bladder Tumor Romain Abdi MD Meds Allergies and Home Medications Allergies Allergy/AdvReac Type Severity Reaction Status Date / Time Penicillins Allergy as child, Unverified 02/13/22 10:44 unknown ropinirole HCl [From Requip] AdvReac Intermediate Contraindic Unverified 02/13/22 10:44 ated Home Medication Medication Instructions Recorded omeprazole 10 mg capsule,delayed 20 mg PO DAILY 09/27/15 release albuterol sulfate 90 mcg/actuation 2 puff inhalation Q6H PRN 04/28/19 aerosol inhaler (Ventolin HFA) multivitamin 1 tab PO DAILY 08/26/19 fluticasone 250 mcg-salmeterol 50 1 inh inhalation PRN PRN 03/29/20 mcg/dose blistr powdr for inhalation (Advair Diskus) oxybutynin chloride 5 mg tablet 10 mg PO QHS PRN bladder spasms 10/25/21 #60 tabs aspirin 81 mg chewable tablet 81 mg PO DAILY 02/13/22 ibuprofen 200 mg tablet 600 mg PO Q6H PRN 02/13/22 Current Visit Medications: Current Medications Generic Name Dose Route Start Last Admin Trade Name Freq PRN Reason Stop Dose Admin Ringer's Solution 1,000 mls @ 80 mls/hr 02/13/22 06:00 IV 03/12/22 23:59 INFUSION ABE Ciprofloxacin 400 mg in 200 mls @ 200 mls/hr 02/13/22 06:00 Cipro I.V. IVPB 02/13/22 18:00 PREOP ABE IV Miscellaneous Supplies 1 each 02/13/22 06:00 Iv Access IV 03/12/22 23:59 DIRECTED ABE Sodium Chloride 0 ml 02/13/22 06:00 Normal Saline Flush 10 Ml Syr IV 03/12/22 23:59 PRN PRN Sodium Chloride 0 ml 02/13/22 06:00 Normal Saline 10 Ml Vial IJ 03/12/22 23:59 DIRECTED PRN Sterile Water 0 ml 02/13/22 06:00 Water,Injection,Sterile 10 Ml Vial IJ 03/12/22 23:59 DIRECTED PRN PFSH Active Problems Active Problems: Problem Status Onset Code Nocturia R35.1 BPH w urinary obs/LUTS N40.1, N13.8 Finger laceration S61.219A Medical History Medical History Abdominal bloating Adenomatous colon polyp Asthma Ceruminosis DJD (degenerative joint disease) Patient denies having arthritis or DJD. Dysthymia Elevated blood pressure reading Elevated PSA GERD (gastroesophageal reflux disease) IBS (irritable bowel syndrome) Left shoulder pain Lower abdominal pain Obesity Peripheral neuropathy RLS (restless legs syndrome) Skin lesion Ventricular septal defect Pt. stated he was told this was benign and no issues because it was ao small Medical History Comments:: Pt had neg. covid test from 04/02/21 at [facility] site (result seen on pt's personal laptop). Surgical History Surgical History Hx of cystoscopy Tobacco Smoking/Tobacco Use Status: Never Alcohol Alcohol Intake: former Substance Use Substance use: Never Substance use type: does not use Details: pt. reports no alcohol use for couple months Vital Signs and Lab Results Vital Signs Most Recent Vital Signs in EMR: Most Recent Vital Signs Temp Pulse Resp BP Pulse Ox 36.7 C 69 13 166/90 H 98 02/13/22 10:50 02/13/22 10:50 02/13/22 10:50 02/13/22 10:50 02/13/22 10:50 Lab Results Blood Type / Crossmatch: No Data to Display Complete Blood Count: No Data to Display Complete Metabolic Panel: No Data to Display Liver Function Panel: No Data to Display Coagulation Panel: No Data to Display Cardiac Panel: No Data to Display Arterial Blood Gas: No Data to Display Venous Blood Gas: No Data to Display Pancreas Panel: No Data to Display Thyroid Panel: No Data to Display Infectious Disease: No Data to Display Blood Cultures: No Data to Display Toxicology Panel: No Data to Display Imaging and Studies Imaging and Studies Study information below may be from another EMR and interpreted by another provider. Please see original notes in EMR for more complete details. Stress Test Summary: Date of Exam: 08/17/20Sex: M Admission Date: 08/17/20 Indications: AFIB MPI Conclusion Myocardial perfusion was normal without evidence of ischemia or prior infarction EF 50% Echocardiogram Summary: Date of Exam: 08/03/20Sex: M Admission Date: 08/03/20 Indications: Atrial Fibrillation, VSD Conclusion Left Ventricle : The left ventricle is normal size. The left ventricular ejection fraction is within the normal range. There is normal left ventricular wall thickness. There is normal LV segmental wall motion. The left ventricular diastolic function is normal. There is a ventricular septal defect visualized. Seen best on image 64. LVEF is 58%. Right Ventricle : The right ventricle is normal size. The right ventricular systolic function is normal. The RVSP is 61.9 mmHg. Atria : The left atrium size is normal. The right atrium size is normal. Mitral Valve : The mitral valve is normal in structure. Trace to mild mitral regurgitation. No evidence of mitral valve stenosis. Great Vessels : The aortic root is normal in size. The ascending aorta is normal in size. Aortic arch is normal in caliber. IVC is normal in size and collapses >50% with inspiration. There is no prior study available for comparison. Anesthesia Assessment and Plan Anesthesia History Personal History: No History of Anesthesia Complications Family History: No Family History of Anesthesia Complications Exercise Tolerance Exercise Tolerance: Metabolic Equivalents>4 Pertinent Negatives Pertinent Negatives: No Symptoms of GERD, No Major Cardiovascular Symptoms or Co mplaints, No Major Pulmonary Symptoms or Complaints (URI has fully resolved. Back to usual inhaler use.) and No History of CVA/TIA Cardiac & Pulmonary Exam Cardiac Exam: Normal S1/S2 Heart Sounds Pulmonary Exam: Clear Bilateral Breath Sounds Implantable Cardiac Device Does patient have a Pacemaker or an ICD?: No Airway Exam Known Difficult Airway: No Mallampati Class: 1 Mouth Opening: Normal (> 3cm) Thyromental Distance: Greater than 3 cm Neck Range of Motion: Full ROM Neck Circumference: Normal Teeth Condition: Normal Dentition ASA Classification ASA Score: ASA 2 Emergency Case?: No NPO Status NPO Status: NPO Clears >2 hours, Solids >8 hours Anesthesia Plan Resuscitation Status: Full Code Anesthesia Technique: General Anesthesia Airway Planned: Natural Airway Monitors Used: Standard Monitors
[2022-02-13 11:03] VITALS: BMI 31.1
[2022-02-13] MEDS: Lactated Ringers 1,000 ML 80 ML IV (11:05)
[2022-02-13] MEDS: CIPROFLOXACIN 400 MG/200 ML BAG 200 MG IVPB (11:10)
--- NOTE | 2022-02-13 12:06 | W.PM.HP.N ---
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 He was first diagnosed in 2019. He was treated with transurethral resection followed by intravesical BCG/chemotherapy when BCG was not available. He presents for surveillance cystoscopy. He has no current dysuria or gross hematuria. He tells me that his urine stream is generally good but then he may have some spraying of the stream after the first few seconds. Review of Systems Narrative: No fevers or chills No vision change or dysphasia No diabetes or thyroid SOB related to asthma. No hemoptysis No chest pain or palpitations Hx GERD. No hepatitis, ulcers, jaundice No seizures, strokes or peripheral neuropathy No bleeding disorders or anemia No gout PFSH All Active Problems Nocturia (Acute) BPH w urinary obs/LUTS (Acute) Finger laceration (Acute) Medical History Abdominal bloating Adenomatous colon polyp Asthma Ceruminosis DJD (degenerative joint disease) Patient denies having arthritis or DJD. Dysthymia Elevated blood pressure reading Elevated PSA GERD (gastroesophageal reflux disease) IBS (irritable bowel syndrome) Left shoulder pain Lower abdominal pain Obesity Peripheral neuropathy RLS (restless legs syndrome) Skin lesion Ventricular septal defect Pt. stated he was told this was benign and no issues because it was ao small Surgical History Hx of cystoscopy Social History Smoking/Tobacco Use Status: Never Smoking risk assessment performed?: Yes Alcohol Intake: former Drug use: Never Substance use type: does not use Details: pt. reports no alcohol use for couple months Do you feel safe at home: Yes Do you feel safe in your relationship?: Yes Meds Allergies and Home Medications Allergies Allergy/AdvReac Type Severity Reaction Status Date / Time Penicillins Allergy as child, Unverified 02/13/22 10:44 unknown ropinirole HCl [From Requip] AdvReac Intermediate Contraindic Unverified 02/13/22 10:44 ated Home Medications Medication Instructions Recorded Confirmed Type omeprazole 10 mg capsule,delayed 20 mg PO DAILY 09/27/15 02/13/22 History release albuterol sulfate 90 mcg/actuation 2 puff inhalation Q6H PRN 04/28/19 02/13/22 History aerosol inhaler (Ventolin HFA) multivitamin 1 tab PO DAILY 08/26/19 02/13/22 History fluticasone 250 mcg-salmeterol 50 1 inh inhalation PRN PRN 03/29/20 02/13/22 History mcg/dose blistr powdr for inhalation (Advair Diskus) oxybutynin chloride 5 mg tablet 10 mg PO QHS PRN bladder spasms 10/25/21 02/13/22 Rx #60 tabs aspirin 81 mg chewable tablet 81 mg PO DAILY 02/13/22 02/13/22 History ibuprofen 200 mg tablet 600 mg PO Q6H PRN 02/13/22 02/13/22 History Exam Const General: cooperative and comfortable Neck Neck: supple Resp Effort & Inspection: normal respiratory effort Auscultation: clear to auscultation bilaterally Cardio Rate: regular rate Rhythm: regular rhythm GI Palpation: soft and no masses Neuro General: patient alert, patient awake and patient oriented x3 Results Last Vital Signs Temp 36.7 C 02/13/22 10:50 Pulse 69 02/13/22 10:50 Resp 13 02/13/22 10:50 BP 166/90 H 02/13/22 10:50 Pulse Ox 98 02/13/22 10:50
--- NOTE | 2022-02-13 12:09 | NUR.NOTE ---
1205: Pt. reports slight itching at IV site, no redness or swelling noted. aware, okay with ABX infusing to finish. Nursing Note:
[2022-02-13] MEDS: Lidocaine 2% Jelly 6 ML SYR (12:40)
--- NOTE | 2022-02-13 12:46 | W.PM.DSUDISC ---
Date of service: 02/13/22 Time of Service: 13:41 Discharge Plan Disposition Patient Disposition: Home Condition: Good Discharge Details Reason For Visit: cystoscopy Attending Provider: Romain Abdi Primary Care Provider: Santosh Zhong Home Meds and New Rx's Prescriptions: No Action oxybutynin chloride 5 mg tablet 10 mg PO QHS PRN (Reason: bladder spasms) Qty: 60 5RF omeprazole 10 MG capsule,delayed release(DR/EC) 20 mg PO DAILY albuterol sulfate [Ventolin HFA] 90 mcg/actuation HFA aerosol inhaler 2 puff IH Q6H PRN multivitamin Tablet 1 tab PO DAILY fluticasone propion-salmeterol [Advair Diskus] 250-50 mcg/dose Blister With Device 1 inh INHALATION PRN PRN ibuprofen 200 mg Tablet 600 mg PO Q6H PRN aspirin [Aspirin Child] 81 mg Tablet,Chewable 81 mg PO DAILY Discharge Instructions Additional Instructions: follow up cystoscopy 6 months Activity:: Activity as Tolerated Shower/Bathe:: 24 hours Diet:: As Tolerated Discharge Orders Discharge Orders: Discharge Order (Routine); Ordered 02/13/22 Ordered By: Romain Abdi DS: Diagnosis Discharge Diagnosis (1) Carcinoma in situ of bladder:
[2022-02-13 12:55] VITALS: BP 98/61; PULSE 68; RESP 12; TEMP 36.3; O2SAT 90
[2022-02-13 13:28] VITALS: BP 98/63; PULSE 66; RESP 16; TEMP 36.6; O2SAT 95
--- NOTE | 2022-02-13 13:36 | W.ANESPOSTOP ---
Postoperative Evaluation Date, Time and Location Date Performed: 02/13/22 Time Performed: 13:16 Patient Location: Day Surgery Unit Vital Signs Most Recent Imported Vital Signs: Most Recent Vital Signs Temp Pulse Resp BP Pulse Ox 36.6 C 66 16 98/63 L 95 02/13/22 13:28 02/13/22 13:28 02/13/22 13:28 02/13/22 13:28 02/13/22 13:28 Pain Score Most Recent Pain Score: Most Recent Pain Score Pain Level 0 02/13/22 13:28 Assessment Mental Status: Awake (Alert & Oriented to Patient Baseline) Airway and Respiratory Function: Patent airway with normal (patient baseline) respiratory exam Cardiovascular Function: Hemodynamically Stable Hydration Status: Adequately Hydrated Nausea & Vomiting: No Nausea or Vomiting Pain: Pt. Denies Any Pain Peripheral Nerve Block: Patient did not receive a nerve block
[2022-02-13 13:40] VITALS: BP 110/68; PULSE 66; RESP 18; TEMP 36.3; O2SAT 97
--- NOTE | 2022-02-13 13:41 | W.PM.OP ---
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 He was initially treated with transurethral section and intravesical BCG. He presents for surveillance cystoscopy. Findings: No recurrent tumor Procedure Description: Patient was given preoperative ciprofloxacin. He was brought to the operating room on 02/13/2022. After successful induction of general anesthesia, he was placed in the dorsal lithotomy position. His genitalia was prepped and draped. 2% Xylocaine jelly was instilled into the urethra to act as a local anesthetic. Initially, I was unable to pass a 24 [place] resectoscope sheath through the urethral meatus. I dilated the area up to size 26 Martin[place] using [place] sounds. The scope could then be passed easily. We visualized the urethra and prostate using a visual obturator and a 30 degree lens. The pendulous, bulbar and membranous urethra showed no additional strictured areas. The prostatic urethra was well resected from her previous transurethral resection. No papillary lesions were seen on the prostatic urethral mucosa. The bladder neck was entered and the bladder mucosa was inspected. Both ureteral orifices appeared normal with no blood coming from either side. No papillary or nodular lesions were seen on inspection of the bladder using both a 30 and a 70 degree lens. Based on today's examination, there is no evidence of tumor recurrence. The bladder was emptied and the scope was removed.
== END 2022-02-13 14:15 | disposition home or self-care (01) ==
PROVIDERS: PCP Internal Medicine; Visit Provider Urology
PROC: 0TBB8ZZ Excision of Bladder, Via Natural or Artificial Opening Endoscopic (ICD-10-PCS; CPT 52000; principal; 2022-02-13 12:30)
DX: C67.9 Malignant neoplasm of bladder, unspecified (principal); N35.919 Unspecified urethral stricture, male, unspecified site
CPT/HCPCS: 52000; J0744; J1100; J1885; J2405; J2704

== ENCOUNTER → 2022-04-10 09:23 | Outpatient (BNVA) | payer MEDICARE, SELFPAY | PROVIDERS: PCP Internal Medicine; Referring Provider Internal Medicine; Visit Provider Student in an Organized Health Care Education/Training Program | DX: M65.331 Trigger finger, right middle finger (principal) | CPT/HCPCS: 20550; 99213; J1030 ==

== ENCOUNTER 2022-06-12 10:18 | Outpatient (CLI) | payer MEDICARE, SELFPAY | END 2022-06-12 10:19 | disposition home or self-care (01) | LOC: CARDOPNVT 10:18 | PROVIDERS: PCP Internal Medicine; Visit Provider Internal Medicine | DX: I48.91 Unspecified atrial fibrillation (principal) | CPT/HCPCS: 93270 ==

== ENCOUNTER 2022-07-17 08:19 | Outpatient (CLI) | payer MEDICARE, SELFPAY ==
--- NOTE | 2022-07-17 08:48 | W.CARDEVENT ---
Date of service: 07/17/22 Time of Service: 08:49 Cardiac Event Recorder Referring Provider:: Santosh Zhong Indications:: Paroxysmal atrial fibrillation Cardiac Event Note: This is a cardiac event monitor. Patient was monitored for 29 days Predominant rhythm was sinus with an average heart rate of 77. Minimum was 56, maximum 108 Atrial fibrillation was present for 11% of the recording with an average heart rate of 104. Maximum heart rate with atrial fibrillation was 160 A 10 beat run labeled as ventricular tachycardia may have been atrial fibrillation with aberrancy There were no apparent patient's symptoms
== END 2022-07-17 08:20 | disposition home or self-care (01) ==
LOC: CARDOPNVT 08:19
PROVIDERS: PCP Internal Medicine; Visit Provider Internal Medicine Cardiovascular Disease
DX: I48.0 Paroxysmal atrial fibrillation (principal); I47.20 Ventricular tachycardia, unspecified
CPT/HCPCS: 93272

== ENCOUNTER 2022-07-20 16:01 | Outpatient (REF) | payer MEDICARE, SELFPAY ==
[2022-07-20 20:06] LABS: Abs Immature Grans 0.03 10^3/uL (0.0-0.06); Absolute Basophil Count 0.03 10^3/uL (0.0-0.2); Absolute Eosinophil Count 0.11 10^3/uL (0.0-0.7); Absolute Lymphocyte Count 1.18 10^3/uL (1.2-3.4); Absolute Monocyte Count 0.86 10^3/uL (0.1-0.8); Absolute Neutrophil Count 6.05 10^3/uL (1.2-6.7); Basophils % 0.4; Eosinophils % 1.3; HCT 44.4 % (40.0-50.0); HGB 15.1 g/dL (13.5-17.5); Immature Grans % 0.4; Lymphocytes % 14.3; MCH 30.8 pg (27.0-33.0); MCV 91 fL (80-95); MPV 9.9 fL (8.0-11.0); Monocytes % 10.4; Neutrophils % 73.2; Platelet Count 242 10^3/uL (130-400); RDW 12.7 % (11.8-14.1); RDW-SD 42.6 fL; WBC 8.26 10^3/uL (4.4-10.8)
[2022-07-20 20:27] LABS: ALT 82 U/L (16-63); AST 42 U/L (15-37); Albumin 4.1 g/dL (3.4-5.0); Alkaline Phosphatase 79 U/L (46-116); Anion Gap 7.5 mmol/L (3-11); BUN 21 mg/dL (7-18); Bilirubin, Total 0.7 mg/dL (0.2-1.0); CO2 27.5 mmol/L (21.0-32.0); Calcium 9.5 mg/dL (8.5-10.1); Chloride 103 mmol/L (98-107); Estimated GFR 80.47 (mL/min/1.73m2); Glucose 151 mg/dL (74-106); Potassium 4.8 mmol/L (3.5-5.1); Sodium 138 mmol/L (136-145); Total Protein 7.1 g/dL (6.4-8.2)
[2022-07-24 10:49] LABS: Lyme Ab w Rflx to Lyme Confirm Negative (Negative)
[2022-07-24 22:52] LABS: Anaplasma phagocytophilum Negative (Negative); B. miyamotoi PCR Negative (Negative); Babesia divergens/MO-1 Negative (Negative); Babesia duncani Negative (Negative); Babesia microti Negative (Negative); Ehrlichia chaffeensis Negative (Negative); Ehrlichia ewingii/canis Negative (Negative); Ehrlichia muris eauclairensis Negative (Negative)
== END 2022-07-20 16:02 | disposition home or self-care (01) ==
LOC: NCHCN 16:01
PROVIDERS: PCP Internal Medicine; Visit Provider Family Medicine
DX: A69.20 Lyme disease, unspecified (principal); E01.0 Iodine-deficiency related diffuse (endemic) goiter
CPT/HCPCS: 80053; 87798; 85025; 86618

== ENCOUNTER 2022-09-07 01:09 | Outpatient (CLI) | payer MEDICARE, SELFPAY ==
--- NOTE | 2022-09-07 | DI.US_ITS ---
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 TECHNIQUE: Ultrasound thyroid performed using standard protocol. COMPARISON: None FINDINGS: Thyroid gland size is normal. There is a single focal finding in the right lobe, as described above. No findings in the left lobe nor in the isthmus. RIGHT THYROID LOBE: Measures 1.5 cm AP x 1.9 cm wide x 5.2 cm craniocaudal There is a small nodule in the inferior aspect of the right lobe. Details as below: Size: This nodule measures 0.4 x 0.3 x 0.3 cm Composition: Solid-2 points Echogenicity: Hypoechoic-2 points Shape: Not taller than wider in the transverse plane 0 points Margin: Smooth- 0 points Echogenic Foci: None-0 points Total Points for this nodule: 4 ACR Ti-Rads Category: TR4 This TR4 nodule does not require biopsy as it measures less than 1.5 cm There are no other focal findings in the right lobe. ISTHMUS: Normal thickness. There are no nodules in the isthmus. LEFT THYROID LOBE: Measures 1.6 cm AP x 1.9 wide x 4.4 cm craniocaudal There are no nodules in the left lobe. LYMPH NODES: There is no significant adenopathy. IMPRESSION: 1. There is a solitary 3-4 mm benign-appearing nodule in the right lobe as detailed above. This does not require biopsy. 2. No other focal findings in the thyroid gland and the gland size is normal. 3. There is no significant lymphadenopathy. DATA REPOSITORY:
== END 2022-09-07 01:29 ==
LOC: DI 01:09
PROVIDERS: PCP Internal Medicine; Visit Provider Family Medicine
DX: E01.0 Iodine-deficiency related diffuse (endemic) goiter (principal)
CPT/HCPCS: 76536

== ENCOUNTER 2022-09-11 06:08 | Day surgery (SDC) | payer MEDICARE, SELFPAY ==
[2022-09-11 06:35] VITALS: BP 156/82; PULSE 65; RESP 16; TEMP 36.7; O2SAT 99
--- NOTE | 2022-09-11 06:51 | W.PM.HP.N ---
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 He was first diagnosed in 2019.? He was treated with transurethral resection followed by intravesical BCG/chemotherapy when BCG was not available.? He presents for surveillance cystoscopy. His last occurrence was in 03/2021. He had a negative cytology in 12/2021. He has no current dysuria or gross hematuria.? He tells me that his urine stream is generally good but then he may have some spraying of the stream after the first few seconds. ? Review of Systems Narrative: No fevers or chills No vision change or dysphasia No diabetes or thyroid dysfunction Asthma. No hemoptysis No chest pain or palpitations GERD. No hepatitis, ulcers, jaundice, diarrhea or constipation No seizures, strokes or peripheral neuropathy No bleeding disorders or anemia No gout PFSH All Active Problems BPH w urinary obs/LUTS (Acute) Finger laceration (Acute) Nocturia (Acute) Trigger finger, right middle finger (Acute) Onychomycosis (Acute) Hypertension (Chronic) Medical History Abdominal bloating Adenomatous colon polyp Asthma Bladder cancer Carcinoma in situ of bladder Ceruminosis DJD (degenerative joint disease) Patient denies having arthritis or DJD. Dysthymia Elevated blood pressure reading Elevated PSA GERD (gastroesophageal reflux disease) IBS (irritable bowel syndrome) Left shoulder pain Lower abdominal pain Obesity Peripheral neuropathy RLS (restless legs syndrome) Skin lesion Ventricular septal defect Pt. stated he was told this was benign and no issues because it was so small Surgical History Hx of cystoscopy Social History Smoking/Tobacco Use Status: Never Smoking risk assessment performed?: Yes Alcohol Intake: former Drug use: Never Substance use type: does not use Household members: spouse Housing: house What is your relationship status?: Panel score (0-1 are the most socially isolated patients): 1 Do you feel safe at home: Yes Do you feel safe in your relationship?: Yes Meds Allergies and Home Medications Allergies Allergy/AdvReac Type Severity Reaction Status Date / Time Penicillins Allergy as child, Unverified 09/11/22 06:39 unknown ropinirole HCl [From Requip] AdvReac Intermediate Contraindic Unverified 09/11/22 06:39 ated Home Medications Medication Instructions Recorded Confirmed Type omeprazole 10 mg capsule,delayed 20 mg PO DAILY 09/27/15 09/11/22 History release albuterol sulfate 90 mcg/actuation 2 puff inhalation Q6H PRN 04/28/19 09/11/22 History aerosol inhaler (Ventolin HFA) multivitamin 1 tab PO DAILY 08/26/19 09/11/22 History fluticasone 250 mcg-salmeterol 50 1 inh inhalation PRN PRN 03/29/20 09/11/22 History mcg/dose blistr powdr for inhalation (Advair Diskus) ibuprofen 200 mg tablet 600 mg PO Q6H PRN 02/13/22 09/11/22 History albuterol sulfate 2.5 mg/3 mL 2.5 mg inhalation QID PRN 02/22/22 09/11/22 History (0.083 %) solution for nebulization apixaban 5 mg tablet (Eliquis) 5 mg PO BID 09/05/22 09/11/22 History Exam Const General: cooperative and comfortable Neck Neck: supple Resp Effort & Inspection: normal respiratory effort Auscultation: clear to auscultation bilaterally Cardio Rate: regular rate Rhythm: regular rhythm GI Palpation: soft and no masses Neuro General: patient alert, patient awake and patient oriented x3 Results Last Vital Signs Temp 36.7 C 09/11/22 06:35 Pulse 65 09/11/22 06:35 Resp 16 09/11/22 06:35 BP 156/82 H 09/11/22 06:35 Pulse Ox 99 09/11/22 06:35 Time Spent Time spent with Patient: <40 minutes Time was spent: other
[2022-09-11] MEDS: Lactated Ringers 1,000 ML 80 ML IV (07:03)
[2022-09-11] MEDS: CIPROFLOXACIN 400 MG/200 ML BAG 200 MG IVPB (07:08)
--- NOTE | 2022-09-11 07:31 | W.ANESPRE ---
General Info Date of Service Date Performed: 09/11/22 Height: 5 ft 11 in Weight: 100.5 kg Body Mass Index (BMI): 30.9 Surgical Procedure: Operation Date: 09/11/22 07:40 Proposed Procedure Side Surgeon p Cysto w/ Possible Transurethral Resection Bladder Tumor Romain Abdi MD Meds Allergies and Home Medications Allergies Allergy/AdvReac Type Severity Reaction Status Date / Time Penicillins Allergy as child, Unverified 09/11/22 06:39 unknown ropinirole HCl [From Requip] AdvReac Intermediate Contraindic Unverified 09/11/22 06:39 ated Home Medication Medication Instructions Recorded omeprazole 10 mg capsule,delayed 20 mg PO DAILY 09/27/15 release albuterol sulfate 90 mcg/actuation 2 puff inhalation Q6H PRN 04/28/19 aerosol inhaler (Ventolin HFA) multivitamin 1 tab PO DAILY 08/26/19 fluticasone 250 mcg-salmeterol 50 1 inh inhalation PRN PRN 03/29/20 mcg/dose blistr powdr for inhalation (Advair Diskus) ibuprofen 200 mg tablet 600 mg PO Q6H PRN 02/13/22 albuterol sulfate 2.5 mg/3 mL 2.5 mg inhalation QID PRN 02/22/22 (0.083 %) solution for nebulization apixaban 5 mg tablet (Eliquis) 5 mg PO BID 09/05/22 Current Visit Medications: Current Medications Generic Name Dose Route Start Last Admin Trade Name Freq PRN Reason Stop Dose Admin Ringer's Solution 1,000 mls @ 80 mls/hr 09/11/22 06:00 09/11/22 07:03 IV 10/08/22 23:59 80 mls/hr INFUSION ABE Administration Ciprofloxacin 400 mg in 200 mls @ 200 mls/hr 09/11/22 06:00 09/11/22 07:08 Cipro I.V. IVPB 09/11/22 16:00 200 mls/hr PREOP ABE Administration IV Miscellaneous Supplies 1 each 09/11/22 06:00 Iv Access IV 10/08/22 23:59 DIRECTED ABE Sodium Chloride 0 ml 09/11/22 06:00 Normal Saline Flush 10 Ml Syr IV 10/08/22 23:59 PRN PRN Sodium Chloride 0 ml 09/11/22 06:00 Normal Saline 10 Ml Vial IJ 10/08/22 23:59 DIRECTED PRN Sterile Water 0 ml 09/11/22 06:00 Water,Injection,Sterile 10 Ml Vial IJ 10/08/22 23:59 DIRECTED PRN PFSH Active Problems Active Problems: Problem Status Onset Code BPH w urinary obs/LUTS N40.1, N13.8 Finger laceration S61.219A Nocturia R35.1 Trigger finger, right middle finger M65.331 Onychomycosis B35.1 Hypertension I10 Medical History Medical History Abdominal bloating Adenomatous colon polyp Asthma Bladder cancer Carcinoma in situ of bladder Ceruminosis DJD (degenerative joint disease) Patient denies having arthritis or DJD. Dysthymia Elevated blood pressure reading Elevated PSA GERD (gastroesophageal reflux disease) IBS (irritable bowel syndrome) Left shoulder pain Lower abdominal pain Obesity Peripheral neuropathy RLS (restless legs syndrome) Skin lesion Ventricular septal defect Pt. stated he was told this was benign and no issues because it was so small Medical History Comments:: Pt had neg. covid test from 04/02/21 at [facility] (result seen on pt's personal laptop). 09/11/22 pt recovering from Lyme disease, treated w/abx 3 months ago Surgical History Surgical History Hx of cystoscopy Tobacco Smoking/Tobacco Use Status: Never Alcohol Alcohol Intake: former Substance Use Substance use: Never Substance use type: does not use Vital Signs and Lab Results Vital Signs Most Recent Vital Signs in EMR: Most Recent Vital Signs Temp Pulse Resp BP Pulse Ox 36.7 C 65 16 156/82 H 99 09/11/22 06:35 09/11/22 06:35 09/11/22 06:35 09/11/22 06:35 09/11/22 06:35 Lab Results Blood Type / Crossmatch: No Data to Display Complete Blood Count: No Data to Display Complete Metabolic Panel: No Data to Display Liver Function Panel: No Data to Display Coagulation Panel: No Data to Display Cardiac Panel: No Data to Display Arterial Blood Gas: No Data to Display Venous Blood Gas: No Data to Display Pancreas Panel: No Data to Display Thyroid Panel: No Data to Display Infectious Disease: No Data to Display Blood Cultures: No Data to Display Toxicology Panel: No Data to Display Imaging and Studies Imaging and Studies Study information below may be from another EMR and interpreted by another provider. Please see original notes in EMR for more complete details. Stress Test Summary: Date of Exam: 08/17/20Sex: M Admission Date: 08/17/20 Indications: AFIB MPI Conclusion Myocardial perfusion was normal without evidence of ischemia or prior infarction EF 50% Echocardiogram Summary: Date of Exam: 08/03/20Sex: M Admission Date: 08/03/20 Indications: Atrial Fibrillation, VSD Conclusion Left Ventricle : The left ventricle is normal size. The left ventricular ejection fraction is within the normal range. There is normal left ventricular wall thickness. There is normal LV segmental wall motion. The left ventricular diastolic function is normal. There is a ventricular septal defect visualized. Seen best on image 64. LVEF is 58%. Right Ventricle : The right ventricle is normal size. The right ventricular systolic function is normal. The RVSP is 61.9 mmHg. Atria : The left atrium size is normal. The right atrium size is normal. Mitral Valve : The mitral valve is normal in structure. Trace to mild mitral regurgitation. No evidence of mitral valve stenosis. Great Vessels : The aortic root is normal in size. The ascending aorta is normal in size. Aortic arch is normal in caliber. IVC is normal in size and collapses >50% with inspiration. There is no prior study available for comparison. Anesthesia Assessment and Plan Anesthesia History Personal History: No History of Anesthesia Complications Family History: No Family History of Anesthesia Complications Exercise Tolerance Exercise Tolerance: Metabolic Equivalents>4 Pertinent Negatives Pertinent Negatives: No Symptoms of GERD Cardiac & Pulmonary Exam Cardiac Exam: Normal S1/S2 Heart Sounds Pulmonary Exam: Clear Bilateral Breath Sounds Implantable Cardiac Device Does patient have a Pacemaker or an ICD?: No Airway Exam Known Difficult Airway: No Mallampati Class: 1 Mouth Opening: Normal (> 3cm) Thyromental Distance: Greater than 3 cm Neck Range of Motion: Full ROM Neck Circumference: Normal Teeth Condition: Normal Dentition ASA Classification ASA Score: ASA 2 Emergency Case?: No NPO Status NPO Status: NPO Clears >2 hours, Solids >8 hours Anesthesia Plan Resuscitation Status: Full Code Anesthesia Technique: MAC Anesthesia (May convert to GA depending on cycto findings) Airway Planned: Natural Airway Monitors Used: Standard Monitors
[2022-09-11 07:33] VITALS: BMI 30.9
--- NOTE | 2022-09-11 08:07 | PAPNONF_PTH ---
PATIENT: José Miguel Ryder LOC: [facility] U#:[id number] AGE/SX: 72/M ROOM: RE09/11/[address]: Romain Abdi MD : 1950 BED: DIS: 09/11/2022 SPEC #: [id number] RECD: 09/11/22 12:42 STATUS: [facility] REQ #: [id number] SEAN: 09/11/22 08:[address]: Romain Abdi DEPT: REPLACED BY [facility] Cytology RECD BY: Caty Pugh ENTERED: 09/11/22 12:45 SP TYPE: MEGAN CONRAD DR: Santosh Zhong Tissues: 1 - BODY FLUID CYTO(SPUTUM/URINE)[facility] Procedures: BODY FLUID CYTO(URINE/SPUTUM) Comments: [id number] (TOTAL VOLUME =102 cc) (REFRIGERTED) (102 cc CYTOLYT ADDED = 102 cc, TV SPECIMEN = 202 cc)
--- NOTE | 2022-09-11 08:12 | W.PM.DSUDISC ---
Date of service: 09/11/22 Time of Service: 08:12 Discharge Plan Disposition Patient Disposition: Home Condition: Stable Discharge Details Reason For Visit: cystoscopy Attending Provider: Romain Abdi Primary Care Provider: Santosh Zhong Home Meds and New Rx's Prescriptions: No Action omeprazole 10 MG capsule,delayed release(DR/EC) 20 mg PO DAILY albuterol sulfate [Ventolin HFA] 90 mcg/actuation HFA aerosol inhaler 2 puff IH Q6H PRN albuterol sulfate 2.5 mg /3 mL (0.083 %) solution for nebulization 2.5 mg inhalation QID PRN Eliquis 5 mg tablet 5 mg PO BID multivitamin Tablet 1 tab PO DAILY fluticasone propion-salmeterol [Advair Diskus] 250-50 mcg/dose Blister With Device 1 inh INHALATION PRN PRN ibuprofen 200 mg Tablet 600 mg PO Q6H PRN Discharge Instructions Additional Instructions: followup @ 2 weeks for cytology results (can be in person or by phone) timing of next cystoscopy will depend on cytology results Activity:: Activity as Tolerated Shower/Bathe:: 24 hours Diet:: As Tolerated Discharge Orders Discharge Orders: Discharge Order (Routine); Ordered 09/11/22 Ordered By: Romain Abdi DS: Diagnosis Discharge Diagnosis (1) Bladder cancer: (2) Carcinoma in situ of bladder:
--- NOTE | 2022-09-11 08:16 | ROE_ITS ---
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 He was treated with transurethral resection along with intravesical BCG. Gemcitabine was used when BCG was not available. His last occurrence was in March 2021. He presents now for surveillance cystoscopy Findings: No visible bladder tumor Procedure Description: The patient was given preoperative antibiotics. He was brought to the operating room on 09/11/2022. After successful induction of general anesthesia, he was placed in the dorsal lithotomy position. His genitalia was prepped and draped. 2% Xylocaine jelly was instilled into the urethra to act as a local anesthetic. A 22 Indonesian rigid cystoscope was passed through the urethra into the bladder. The initial urine that was obtained upon entering the bladder was collected and sent to pathology for cytology exam. The urethra and bladder were inspected with a 30 degree lens. The pendulous, bulbar and membranous urethra's appeared normal with no strictures. The prostatic urethra appeared well resected. No papillary lesions were seen on the urethral mucosa. The bladder neck was entered and the bladder mucosa was inspected. Both ureteral orifices appeared normal with no blood coming from either side. No papillary or nodular lesions were seen throughout the bladder. The findings in the bladder were confirmed on reinspection using a 70 degree lens. The bladder was again emptied and the scope was removed. He tolerated this procedure well with no complications.
[2022-09-11 08:19] VITALS: BP 156/82; PULSE 65; RESP 16; TEMP 36.7; O2SAT 99
[2022-09-11] MEDS: Lidocaine 2% Jelly 6 ML SYR (08:24)
--- NOTE | 2022-09-11 08:36 | W.ANESPOSTOP ---
Postoperative Evaluation Date, Time and Location Date Performed: 09/11/22 Time Performed: 08:36 Patient Location: Day Surgery Unit Vital Signs Most Recent Imported Vital Signs: Most Recent Vital Signs Temp Pulse Resp BP Pulse Ox 36.7 C 65 16 156/82 H 99 09/11/22 08:19 09/11/22 08:19 09/11/22 08:19 09/11/22 08:19 09/11/22 08:19 Pain Score Most Recent Pain Score: Most Recent Pain Score Pain Level 0 09/11/22 08:19 Assessment Mental Status: Awake (Alert & Oriented to Patient Baseline) Airway and Respiratory Function: Patent airway with normal (patient baseline) respiratory exam Cardiovascular Function: Hemodynamically Stable Hydration Status: Adequately Hydrated Nausea & Vomiting: No Nausea or Vomiting Pain: Pt. Denies Any Pain Peripheral Nerve Block: Patient did not receive a nerve block
[2022-09-11] MEDS: Phenazopyridine 200 MG TAB PO (08:52)
[2022-09-11 08:53] VITALS: BP 135/66; PULSE 58; RESP 16; TEMP 36; O2SAT 98
== END 2022-09-11 09:19 | disposition home or self-care (01) ==
PROVIDERS: PCP Internal Medicine; Visit Provider Urology
PROC: 0TBB8ZZ Excision of Bladder, Via Natural or Artificial Opening Endoscopic (ICD-10-PCS; CPT 52000; principal; 2022-09-11 07:30)
DX: Z08 Encounter for follow-up examination after completed treatment for malignant neoplasm (principal); Z85.51 Personal history of malignant neoplasm of bladder
CPT/HCPCS: 52000; 88104; J0744; J1100; J2001; J2405; J2704

== ENCOUNTER → 2022-09-28 09:15 | Outpatient (BNVA) | payer MEDICARE, SELFPAY | PROVIDERS: PCP Internal Medicine; Referring Provider Internal Medicine; Visit Provider Physical Therapy Assistant | DX: Z12.11 Encounter for screening for malignant neoplasm of colon (principal); Z86.010 Personal history of colon polyps ==

== ENCOUNTER → 2022-09-28 14:47 | Outpatient (BNVA) | payer MEDICARE, SELFPAY | PROVIDERS: PCP Internal Medicine; Referring Provider Internal Medicine; Visit Provider Urology | DX: C67.9 Malignant neoplasm of bladder, unspecified (principal) | CPT/HCPCS: 99213 ==

== ENCOUNTER 2022-10-18 18:44 | Outpatient (REF) | payer MEDICARE, SELFPAY ==
[2022-10-18 20:56] LABS: Abs Immature Grans 0.13 10^3/uL (0.0-0.06); Absolute Eosinophil Count 0.13 10^3/uL (0.0-0.7); Absolute Lymphocyte Count 1.35 10^3/uL (1.2-3.4); Absolute Monocyte Count 0.55 10^3/uL (0.1-0.8); Basophils % 0.5; HCT 40.1 % (40.0-50.0); HGB 13.6 g/dL (13.5-17.5); Lymphocytes % 10.3; MCHC 33.9 % (32.0-36.0); MCV 91 fL (80-95); MPV 9.6 fL (8.0-11.0); Monocytes % 4.2; Platelet Count 454 10^3/uL (130-400); RBC 4.39 10^6/uL (4.36-5.78); RDW 13.2 % (11.8-14.1); RDW-SD 44.4 fL; WBC 13.14 10^3/uL (4.4-10.8)
[2022-10-18 21:08] LABS: Absolute Basophil Count 0.07 10^3/uL (0.0-0.2); Absolute Neutrophil Count 10.91 10^3/uL (1.2-6.7)
[2022-10-18 21:16] LABS: Anion Gap 8.6 mmol/L (3-11); BUN 16 mg/dL (7-18); CO2 25.4 mmol/L (21.0-32.0); CREATININE 0.9 mg/dL (0.70-1.30); Calcium 9.1 mg/dL (8.5-10.1); Chloride 99 mmol/L (98-107); Estimated GFR 91.31 (mL/min/1.73m2); Glucose 258 mg/dL (74-106); Potassium 4.5 mmol/L (3.5-5.1); Sodium 133 mmol/L (136-145)
[2022-10-20 13:02] LABS: Lyme Ab w Rflx to Lyme Confirm Positive (Negative)
[2022-10-20 13:51] LABS: Lyme IgG Ab Positive (Negative); Lyme IgM Ab Positive (Negative)
[2022-10-21 17:10] LABS: Anaplasma phagocytophilum Negative (Negative); B. miyamotoi PCR Negative (Negative); Babesia divergens/MO-1 Negative (Negative); Babesia duncani Negative (Negative); Babesia microti Negative (Negative); Ehrlichia chaffeensis Negative (Negative); Ehrlichia ewingii/canis Negative (Negative); Ehrlichia muris eauclairensis Negative (Negative)
== END 2022-10-18 18:45 | disposition home or self-care (01) ==
LOC: NCHCN 18:44
PROVIDERS: PCP Internal Medicine; Visit Provider Family Medicine
DX: M25.512 Pain in left shoulder (principal); W57.XXXA Bitten or stung by nonvenomous insect and other nonvenomous arthropods, initial encounter; A69.20 Lyme disease, unspecified
CPT/HCPCS: 80048; 86617; 87798; 85025; 86618

== ENCOUNTER → 2023-02-05 14:29 | Outpatient (BNVA) | payer MEDICARE, SELFPAY | PROVIDERS: PCP Family Medicine; Referring Provider Family Medicine; Visit Provider Surgery | DX: Z86.010 Personal history of colon polyps (principal) ==

== ENCOUNTER 2023-03-19 16:09 | Outpatient (REF) | payer MEDICARE, SELFPAY ==
[2023-03-19 15:42] LABS: ALT 55 U/L (16-63); AST 30 U/L (15-37)
== END 2023-03-19 16:10 | disposition home or self-care (01) ==
LOC: NCHCN 16:09
PROVIDERS: PCP Family Medicine; Visit Provider Family Medicine
DX: E78.5 Hyperlipidemia, unspecified (principal)
CPT/HCPCS: 84450; 84460

== ENCOUNTER 2023-05-03 06:18 | Day surgery (SDC) | payer MEDICARE, SELFPAY ==
[2023-05-03 06:20] VITALS: BP 164/78; PULSE 73; RESP 18; TEMP 36.2; O2SAT 97
[2023-05-03] MEDS: Ciprofloxacin 250 MG TAB 500 MG PO (06:35)
[2023-05-03] MEDS: Lactated Ringers 1,000 ML 80 ML IV (06:48)
--- NOTE | 2023-05-03 06:57 | HPE_ITS ---
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 He was first diagnosed in 2019.? He was treated with transurethral resection followed by intravesical BCG/chemotherapy when BCG was not available.? He presents for surveillance cystoscopy. His last occurrence was in 03/2021. He had a negative cytology in 12/2021 and 08/2022. He has no current dysuria or gross hematuria.? He tells me that his urine stream is generally good but then he may have some spraying of the stream after the first few seconds. ? Review of Systems Narrative: No fevers or chills No vision change or dysphasia No diabetes or thyroid Asthma. No hemoptysis No chest pain or palpitations No nausea, vomiting, hepatitis, ulcers, jaundice, diarrhea or constipation No seizures, strokes or peripheral neuropathy No bleeding disorders or anemia No gout PFSH All Active Problems Hypertension (Chronic) Onychomycosis (Acute) Trigger finger, right middle finger (Acute) Nocturia (Acute) Finger laceration (Acute) BPH w urinary obs/LUTS (Acute) Medical History Tubular adenoma of colon (11/30/15) Carcinoma in situ of bladder Bladder cancer RLS (restless legs syndrome) Ventricular septal defect Pt. stated he was told this was benign and no issues because it was so small Elevated PSA DJD (degenerative joint disease) Patient denies having arthritis or DJD. Adenomatous colon polyp Skin lesion Lower abdominal pain Left shoulder pain Ceruminosis Obesity IBS (irritable bowel syndrome) Peripheral neuropathy Asthma GERD (gastroesophageal reflux disease) Elevated blood pressure reading Dysthymia Abdominal bloating Surgical History H/O cardiac radiofrequency ablation November 2022-for Afib S/P colonoscopy (~11/30/15) Hx of cystoscopy Social History Smoking/Tobacco Use Status: Never Smoking risk assessment performed?: Yes Alcohol Intake: former Drug use: Never Substance use type: does not use Household members: spouse Housing: house What is your relationship status?: Panel score (0-1 are the most socially isolated patients): 1 Do you feel safe at home: Yes Do you feel safe in your relationship?: Yes Meds Allergies and Home Medications Allergies Allergy/AdvReac Type Severity Reaction Status Date / Time Penicillins Allergy as child, Verified 05/03/23 06:17 unknown ropinirole HCl [From Requip] AdvReac Intermediate Contraindic Verified 05/03/23 06:17 ated Home Medications Medication Instructions Recorded Confirmed Type omeprazole 10 mg capsule,delayed 20 mg PO DAILY 09/27/15 05/03/23 History release albuterol sulfate 90 mcg/actuation 2 puff inhalation Q6H PRN 04/28/19 05/01/23 History aerosol inhaler (Ventolin HFA) multivitamin 1 tab PO DAILY 08/26/19 05/03/23 History albuterol sulfate 2.5 mg/3 mL 2.5 mg inhalation QID PRN 02/22/22 05/01/23 Histo ry (0.083 %) solution for nebulization bisacodyl 5 mg tablet,delayed 5 mg PO ONCE #4 tabs 09/28/22 05/01/23 Rx release (Dulcolax (bisacodyl)) polyethylene glycol 3350 17 17 g PO ONCE #238 grams 09/28/22 05/01/23 Rx gram/dose oral powder rivaroxaban 20 mg tablet (Xarelto) 20 mg PO DAILY 02/05/23 05/01/23 History atorvastatin 20 mg tablet mg 05/03/23 History Exam Const General: cooperative Neck Neck: supple Resp Effort & Inspection: normal respiratory effort Auscultation: clear to auscultation bilaterally Cardio Rate: regular rate Rhythm: regular rhythm GI Palpation: soft and no masses Neuro General: patient alert, patient awake and patient oriented x3 Results Last Vital Signs Temp 36.2 C L 05/03/23 06:20 Pulse 73 05/03/23 06:20 Resp 18 05/03/23 06:20 BP 164/78 H 05/03/23 06:20 Pulse Ox 97 05/03/23 06:20 Time Spent Time spent with Patient: <40 minutes Time was spent: other
--- NOTE | 2023-05-03 07:01 | W.ANESPRE ---
General Info Date of Service Date Performed: 05/03/23 Height: 5 ft 11 in Weight: 96.6 kg Body Mass Index (BMI): 29.7 Surgical Procedure: Operation Date: 05/03/23 07:40 Proposed Procedure Side Surgeon p Cystoscopy w/Possible Transurethral Resection Bladder Tumor Romain Abdi MD Meds Allergies and Home Medications Allergies Allergy/AdvReac Type Severity Reaction Status Date / Time Penicillins Allergy as child, Verified 05/03/23 06:17 unknown ropinirole HCl [From Requip] AdvReac Intermediate Contraindic Verified 05/03/23 06:17 ated Home Medication Medication Instructions Recorded omeprazole 10 mg capsule,delayed 20 mg PO DAILY 09/27/15 release albuterol sulfate 90 mcg/actuation 2 puff inhalation Q6H PRN 04/28/19 aerosol inhaler (Ventolin HFA) multivitamin 1 tab PO DAILY 08/26/19 albuterol sulfate 2.5 mg/3 mL 2.5 mg inhalation QID PRN 02/22/22 (0.083 %) solution for nebulization bisacodyl 5 mg tablet,delayed 5 mg PO ONCE #4 tabs 09/28/22 release (Dulcolax (bisacodyl)) polyethylene glycol 3350 17 17 g PO ONCE #238 grams 09/28/22 gram/dose oral powder rivaroxaban 20 mg tablet (Xarelto) 20 mg PO DAILY 02/05/23 atorvastatin 20 mg tablet mg 05/03/23 Current Visit Medications: Current Medications Generic Name Dose Route Start Last Admin Trade Name Freq PRN Reason Stop Dose Admin Ciprofloxacin HCl 500 mg 05/03/23 06:00 05/03/23 06:35 Ciprofloxacin 250 Mg Tab PO 05/03/23 23:59 500 mg PREOP ABE Administration Ringer's Solution 1,000 mls @ 80 mls/hr 05/03/23 06:00 05/03/23 06:48 IV 05/03/23 23:59 80 mls/hr INFUSION ABE Administration IV Miscellaneous Supplies 1 each 05/03/23 06:00 Iv Access IV 05/03/23 23:59 DIRECTED ABE Sodium Chloride 0 ml 05/03/23 06:00 Normal Saline Flush 10 Ml Syr IV 05/03/23 23:59 PRN PRN Sodium Chloride 0 ml 05/03/23 06:00 Normal Saline 10 Ml Vial IJ 05/03/23 23:59 DIRECTED PRN Sterile Water 0 ml 05/03/23 06:00 Water,Injection,Sterile 10 Ml Vial IJ 05/03/23 23:59 DIRECTED PRN PFSH Active Problems Active Problems: Problem Status Onset Code Hypertension I10 Onychomycosis B35.1 Trigger finger, right middle finger M65.331 Nocturia R35.1 Finger laceration S61.219A BPH w urinary obs/LUTS N40.1, N13.8 Medical History Medical History Tubular adenoma of colon (11/30/15) Carcinoma in situ of bladder Bladder cancer RLS (restless legs syndrome) Ventricular septal defect Pt. stated he was told this was benign and no issues because it was so small Elevated PSA DJD (degenerative joint disease) Patient denies having arthritis or DJD. Adenomatous colon polyp Skin lesion Lower abdominal pain Left shoulder pain Ceruminosis Obesity IBS (irritable bowel syndrome) Peripheral neuropathy Asthma GERD (gastroesophageal reflux disease) Elevated blood pressure reading Dysthymia Abdominal bloating Surgical History Surgical History H/O cardiac radiofrequency ablation November 2022-for Afib S/P colonoscopy (~11/30/15) Hx of cystoscopy Tobacco Smoking/Tobacco Use Status: Never Alcohol Alcohol Intake: former Substance Use Substance use: Never Substance use type: does not use Vital Signs and Lab Results Vital Signs Most Recent Vital Signs in EMR: Most Recent Vital Signs Temp Pulse Resp BP Pulse Ox 36.2 C L 73 18 164/78 H 97 05/03/23 06:20 05/03/23 06:20 05/03/23 06:20 05/03/23 06:20 05/03/23 06:20 Lab Results Blood Type / Crossmatch: No Data to Display Complete Blood Count: No Data to Display Complete Metabolic Panel: No Data to Display Liver Function Panel: No Data to Display Coagulation Panel: No Data to Display Cardiac Panel: No Data to Display Arterial Blood Gas: No Data to Display Venous Blood Gas: No Data to Display Pancreas Panel: No Data to Display Thyroid Panel: No Data to Display Infectious Disease: No Data to Display Blood Cultures: No Data to Display Toxicology Panel: No Data to Display Imaging and Studies Imaging and Studies Study information below may be from another EMR and interpreted by another provider. Please see original notes in EMR for more complete details. Stress Test Summary: Date of Exam: 08/17/20Sex: M Admission Date: 08/17/20 Indications: AFIB MPI Conclusion Myocardial perfusion was normal without evidence of ischemia or prior infarction EF 50% Echocardiogram Summary: Date of Exam: 08/03/20Sex: M Admission Date: 08/03/20 Indications: Atrial Fibrillation, VSD Conclusion Left Ventricle : The left ventricle is normal size. The left ventricular ejection fraction is within the normal range. There is normal left ventricular wall thickness. There is normal LV segmental wall motion. The left ventricular diastolic function is normal. There is a ventricular septal defect visualized. Seen best on image 64. LVEF is 58%. Right Ventricle : The right ventricle is normal size. The right ventricular systolic function is normal. The RVSP is 61.9 mmHg. Atria : The left atrium size is normal. The right atrium size is normal. Mitral Valve : The mitral valve is normal in structure. Trace to mild mitral regurgitation. No evidence of mitral valve stenosis. Great Vessels : The aortic root is normal in size. The ascending aorta is normal in size. Aortic arch is normal in caliber. IVC is normal in size and collapses >50% with inspiration. There is no prior study available for comparison. Anesthesia Assessment and Plan Anesthesia History Personal History: No History of Anesthesia Complications Family History: No Family History of Anesthesia Complications Exercise Tolerance Exercise Tolerance: Metabolic Equivalents>4 Pertinent Negatives Pertinent Negatives: No Symptoms of GERD Cardiac & Pulmonary Exam Cardiac Exam: Normal S1/S2 Heart Sounds Pulmonary Exam: Clear Bilateral Breath Sounds Implantable Cardiac Device Does patient have a Pacemaker or an ICD?: No Airway Exam Known Difficult Airway: No Mallampati Class: 1 Mouth Opening: Normal (> 3cm) Thyromental Distance: Greater than 3 cm Neck Range of Motion: Full ROM Neck Circumference: Normal Teeth Condition: Normal Dentition ASA Classification ASA Score: ASA 3 Emergency Case?: No NPO Status NPO Status: NPO Clears >2 hours, Solids >8 hours Anesthesia Plan Resuscitation Status: Full Code Anesthesia Technique: General Anesthesia Airway Planned: Natural Airway Monitors Used: Standard Monitors
[2023-05-03 07:06] VITALS: BMI 29.7
[2023-05-03] MEDS: Lidocaine 2% Jelly 6 ML SYR (07:48)
--- NOTE | 2023-05-03 07:53 | PAPNONF_PTH ---
PATIENT: José Miguel Ryder LOC: [facility] U#:[id number] AGE/SX: 72/M ROOM: RE05/03/[address]: Romain Abdi MD : 1950 BED: DIS: 05/03/2023 SPEC #: [id number] RECD: 05/03/23 13:11 STATUS: [facility] REQ #: [id number] SEAN: 05/03/23 07:[address]: Romain Abdi DEPT: [facility] Cytology RECD BY: Lashell Hyatt ENTERED: 05/03/23 13:11 SP TYPE: MEGAN CONRAD DR: Charbel De Paz Tissues: 1 - BODY FLUID CYTO(SPUTUM/URINE)[facility] Procedures: BODY FLUID CYTO(URINE/SPUTUM) Comments: [id number] (TV = 100 ml) (REFRIGERATED) (50 ml URINE & 30 ml CYTOLYT ADDED IN 2 CONTAINERS)
--- NOTE | 2023-05-03 08:00 | W.PM.DSUDISC ---
Date of service: 05/03/23 Time of Service: 08:00 Discharge Plan Disposition Patient Disposition: Home Discharge Details Reason For Visit: cystoscopy Attending Provider: Romain Abdi Primary Care Provider: Charbel De Paz Home Meds and New Rx's Prescriptions: No Action Xarelto 20 mg tablet 20 mg PO DAILY Rx Instructions: must administer with evening meal bisacodyl [Dulcolax (bisacodyl)] 5 mg tablet,delayed release (DR/EC) 5 mg PO ONCE Qty: 4 0RF Rx Instructions: Take per colonoscopy instructions provided by ordering providers office polyethylene glycol 3350 17 gram/dose powder 17 g PO ONCE Qty: 238 0RF Rx Instructions: Take per colonoscopy instructions provided by ordering providers office omeprazole 10 MG capsule,delayed release(DR/EC) 20 mg PO DAILY albuterol sulfate [Ventolin HFA] 90 mcg/actuation HFA aerosol inhaler 2 puff IH Q6H PRN albuterol sulfate 2.5 mg /3 mL (0.083 %) solution for nebulization 2.5 mg inhalation QID PRN multivitamin Tablet 1 tab PO DAILY atorvastatin 20 mg tablet Patient Comments: Take 1 tablet by mouth once a day Discharge Instructions Additional Instructions: followup @ 2 weeks to review cytology results Discharge Orders Discharge Orders: Discharge Order (Routine); Ordered 05/03/23 Ordered By: Romain Abdi DS: Diagnosis Discharge Diagnosis (1) Bladder cancer:
--- NOTE | 2023-05-03 08:03 | ROE_ITS ---
Date of service: 05/03/23 Time of Service: 08:03 Operative Note Operative Note DATE OF PROCEDURE: 05/03/23 PRE-OP DIAGNOSIS: Bladder cancer POST-OP DIAGNOSIS: same PROCEDURE: cystoscopy SURGEON: Romain Abdi ANESTHESIA TYPE: Local By Surgeon and General:No Airway Refer to Anesthesia Record ESTIMATED BLOOD LOSS: 5 PATHOLOGY: other (urine for cytology) COMPLICATIONS: None Patient was transported to: same day Patient's condition: stable Implants: none Indications: This is a 72-year-old gentleman who has a history of urothelial cell carcinoma of the bladder. He was treated with a transurethral resection followed by intravesical BCG/chemotherapy installations. He presents now for surveillance cystoscopy. Findings: no recurrent tumor Procedure Description: The patient was brought to the operating room on 05/03/2023. After successful induction of general anesthesia without intubation, he was placed in the dorsal lithotomy position. His genitalia was prepped and draped. 2% Xylocaine jelly was instilled into the urethra to act as a local anesthetic. A 22 Sammarinese rigid cystoscope was passed through the urethra into the bladder. The urethra and bladder were inspected with the 30 degree lens. The pendulous, bulbar and membranous urethra was all appeared normal with no strictures. The prostatic urethra showed some previous resected tissue at the bladder neck. A few papillary/inflammatory appearing areas of mucosa were out toward the verumontanum. The bladder neck was entered and the bladder mucosa was inspected. The bladder was drained and the urine was collected. The urine was sent to pathology for cytology exam. Both ureteral orifices appeared normal with no blood coming from either side. Multiple scars are seen on the bladder from previous resections and biopsies. No papillary or nodular lesions were seen within the lumen of the bladder. These findings were confirmed on reinspection of the bladder using a 70 degree lens. Based on today's examination, there is no evidence of tumor recurrence. The bladder was emptied and the cystoscope was withdrawn. The patient tolerated the procedure well and was taken back to the same-day surgery unit in stable condition.
[2023-05-03 08:04] VITALS: BP 107/70; PULSE 76; RESP 16; TEMP 36.3; O2SAT 95
[2023-05-03] MEDS: Phenazopyridine 200 MG TAB PO (08:11)
[2023-05-03 08:36] VITALS: BP 134/63; PULSE 68; RESP 16; TEMP 36.4; O2SAT 97
--- NOTE | 2023-05-03 09:13 | W.ANESPOSTOP ---
Postoperative Evaluation Date, Time and Location Date Performed: 05/03/23 Time Performed: 09:13 Patient Location: Day Surgery Unit Vital Signs Most Recent Imported Vital Signs: Most Recent Vital Signs Temp Pulse Resp BP Pulse Ox 36.4 C L 68 16 134/63 97 05/03/23 08:36 05/03/23 08:36 05/03/23 08:36 05/03/23 08:36 05/03/23 08:36 Pain Score Most Recent Pain Score: Most Recent Pain Score Pain Level 0 05/03/23 08:36 Assessment Mental Status: Awake (Alert & Oriented to Patient Baseline) Airway and Respiratory Function: Patent airway with normal (patient baseline) respiratory exam Cardiovascular Function: Hemodynamically Stable Hydration Status: Adequately Hydrated Nausea & Vomiting: No Nausea or Vomiting Pain: Pt. Denies Any Pain Peripheral Nerve Block: Patient did not receive a nerve block
== END 2023-05-03 09:06 | disposition home or self-care (01) ==
PROVIDERS: PCP Family Medicine; Visit Provider Urology
PROC: 0TBB8ZZ Excision of Bladder, Via Natural or Artificial Opening Endoscopic (ICD-10-PCS; CPT 52000; principal; 2023-05-03 07:30)
DX: Z08 Encounter for follow-up examination after completed treatment for malignant neoplasm (principal); Z85.51 Personal history of malignant neoplasm of bladder
CPT/HCPCS: 52000; 88104; J1100; J1885; J2001; J2405; J2704

== ENCOUNTER → 2023-05-09 08:45 | Outpatient (BNVA) | payer MEDICARE, SELFPAY | PROVIDERS: PCP Family Medicine; Referring Provider Family Medicine; Visit Provider Surgery | DX: Z12.11 Encounter for screening for malignant neoplasm of colon (principal); Z86.010 Personal history of colon polyps ==

== ENCOUNTER → 2023-05-15 10:38 | Outpatient (BNVA) | payer MEDICARE, SELFPAY | PROVIDERS: PCP Family Medicine; Referring Provider Family Medicine; Visit Provider Urology | DX: D09.0 Carcinoma in situ of bladder (principal); C67.9 Malignant neoplasm of bladder, unspecified | CPT/HCPCS: 99213 ==

== ENCOUNTER 2023-05-24 06:49 | Day surgery (SDC) | payer MEDICARE, SELFPAY ==
--- NOTE | 2023-05-23 18:10 | W.ANESPRE ---
General Info Date of Service Date Performed: 05/24/23 Height: 5 ft 11 in Weight: 95.254 kg Body Mass Index (BMI): 29.2 Surgical Procedure: Operation Date: 05/24/23 08:20 Proposed Procedure Side Surgeon cely Don MD Meds Allergies and Home Medications Allergies Allergy/AdvReac Type Severity Reaction Status Date / Time Penicillins Allergy as child, Verified 05/24/23 07:05 unknown ropinirole HCl [From Requip] AdvReac Intermediate Contraindic Verified 05/24/23 07:05 ated Home Medication Medication Instructions Recorded omeprazole 10 mg capsule,delayed 20 mg PO DAILY 09/27/15 release albuterol sulfate 90 mcg/actuation 2 puff inhalation Q6H PRN 04/28/19 aerosol inhaler (Ventolin HFA) multivitamin 1 tab PO DAILY 08/26/19 albuterol sulfate 2.5 mg/3 mL 2.5 mg inhalation QID PRN 02/22/22 (0.083 %) solution for nebulization rivaroxaban 20 mg tablet (Xarelto) 20 mg PO DAILY 02/05/23 atorvastatin 20 mg tablet 20 mg PO DAILY 05/03/23 Current Visit Medications: Current Medications Generic Name Dose Route Start Last Admin Trade Name Freq PRN Reason Stop Dose Admin Ringer's Solution 1,000 mls @ 80 mls/hr 05/24/23 06:00 IV 06/22/23 23:59 INFUSION ABE IV Miscellaneous Supplies 1 each 05/24/23 06:00 Iv Access IV 06/22/23 23:59 DIRECTED ABE Sodium Chloride 0 ml 05/24/23 06:00 Normal Saline Flush 10 Ml Syr IV 06/22/23 23:59 PRN PRN Sodium Chloride 0 ml 05/24/23 06:00 Normal Saline 10 Ml Vial IJ 06/22/23 23:59 DIRECTED PRN Sterile Water 0 ml 05/24/23 06:00 Water,Injection,Sterile 10 Ml Vial IJ 06/22/23 23:59 DIRECTED PRN PFSH Active Problems Active Problems: Problem Status Onset Code Hypertension I10 Onychomycosis B35.1 Trigger finger, right middle finger M65.331 Nocturia R35.1 Finger laceration S61.219A BPH w urinary obs/LUTS N40.1, N13.8 Medical History Medical History Tubular adenoma of colon (11/30/15) Carcinoma in situ of bladder Bladder cancer RLS (restless legs syndrome) Ventricular septal defect Pt. stated he was told this was benign and no issues because it was so small Elevated PSA DJD (degenerative joint disease) Patient denies having arthritis or DJD. Adenomatous colon polyp Skin lesion Lower abdominal pain Left shoulder pain Ceruminosis Obesity IBS (irritable bowel syndrome) Peripheral neuropathy Asthma GERD (gastroesophageal reflux disease) Elevated blood pressure reading Dysthymia Abdominal bloating Surgical History Surgical History H/O cardiac radiofrequency ablation November 2022-for Afib S/P colonoscopy (~11/30/15) Hx of cystoscopy Tobacco Smoking/Tobacco Use Status: Never Alcohol Alcohol Intake: former Substance Use Substance use: Never Substance use type: does not use Vital Signs and Lab Results Vital Signs Most Recent Vital Signs in EMR: Temp Pulse Resp BP Pulse Ox 36.6 C 80 16 146/64 H 99 05/24/23 07:13 05/24/23 07:13 05/24/23 07:13 05/24/23 07:13 05/24/23 07:13 Lab Results Blood Type / Crossmatch: No Data to Display Complete Blood Count: No Data to Display Complete Metabolic Panel: No Data to Display Liver Function Panel: No Data to Display Coagulation Panel: No Data to Display Cardiac Panel: No Data to Display Arterial Blood Gas: No Data to Display Venous Blood Gas: No Data to Display Pancreas Panel: No Data to Display Thyroid Panel: No Data to Display Infectious Disease: No Data to Display Blood Cultures: No Data to Display Toxicology Panel: No Data to Display Imaging and Studies Imaging and Studies Study information below may be from another EMR and interpreted by another provider. Please see original notes in EMR for more complete details. Stress Test Summary: Date of Exam: 08/17/20Sex: M Admission Date: 08/17/20 Indications: AFIB MPI Conclusion Myocardial perfusion was normal without evidence of ischemia or prior infarction EF 50% Echocardiogram Summary: 11/18 [facility] [place]: LVEF 65%, RV sys normal fxn/size, mild MR Date of Exam: 08/03/20Sex: M Admission Date: 06/08/21 Indications: Atrial Fibrillation, VSD Conclusion Left Ventricle : The left ventricle is normal size. The left ventricular ejection fraction is within the normal range. There is normal left ventricular wall thickness. There is normal LV segmental wall motion. The left ventricular diastolic function is normal. There is a ventricular septal defect visualized. Seen best on image 64. LVEF is 58%. Right Ventricle : The right ventricle is normal size. The right ventricular systolic function is normal. The RVSP is 61.9 mmHg. Atria : The left atrium size is normal. The right atrium size is normal. Mitral Valve : The mitral valve is normal in structure. Trace to mild mitral regurgitation. No evidence of mitral valve stenosis. Great Vessels : The aortic root is normal in size. The ascending aorta is normal in size. Aortic arch is normal in caliber. IVC is normal in size and collapses >50% with inspiration. There is no prior study available for comparison. Anesthesia Assessment and Plan Anesthesia History Personal History: No History of Anesthesia Complications Family History: No Family History of Anesthesia Complications Exercise Tolerance Exercise Tolerance: Metabolic Equivalents>4 Cardiac & Pulmonary Exam Cardiac Exam: Normal S1/S2 Heart Sounds Pulmonary Exam: Clear Bilateral Breath Sounds Implantable Cardiac Device Does patient have a Pacemaker or an ICD?: No Airway Exam Known Difficult Airway: No Mallampati Class: 1 Mouth Opening: Normal (> 3cm) Thyromental Distance: Greater than 3 cm Neck Range of Motion: Full ROM Neck Circumference: Normal Teeth Condition: Normal Dentition ASA Classification ASA Score: ASA 3 Emergency Case?: No NPO Status NPO Status: NPO Clears >2 hours, Solids >8 hours Anesthesia Plan Resuscitation Status: Full Code Anesthesia Technique: General Anesthesia Airway Planned: Natural Airway Monitors Used: Standard Monitors Preoperative Comments:: 72 yo male for colo Sig PMHx: HTN, VSD, afib ablation (11/18 [facility] [place]), PASP 60's (2019 echo), RLS, PSA, asthma, GERD. Previous Anes: - ablation, masked with OPA, mac 4 grade 3. - multiple TURPT, prop, natural airway/LMAs, no issues. - colo, prop, natural airway, no issues.
--- NOTE | 2023-05-23 18:26 | PDOC.DSDIS_ITS ---
Date of service: 05/24/23 Time of Service: 09:06 Discharge Plan Disposition Patient Disposition: Home Condition: Good Discharge Details Reason For Visit: screening colonscopy Attending Provider: Geovanni Don Primary Care Provider: Charbel De Paz Home Meds and New Rx's Prescriptions: Continued omeprazole 10 MG capsule,delayed release(DR/EC) 20 mg PO DAILY albuterol sulfate [Ventolin HFA] 90 mcg/actuation HFA aerosol inhaler 2 puff IH Q6H PRN albuterol sulfate 2.5 mg /3 mL (0.083 %) solution for nebulization 2.5 mg inhalation QID PRN multivitamin Tablet 1 tab PO DAILY atorvastatin 20 mg tablet 20 mg PO DAILY Patient Comments: Take 1 tablet by mouth once a day Held Xarelto 20 mg tablet 20 mg PO DAILY Hold Instructions: Resume on 05/26/23. Rx Instructions: must administer with evening meal Discontinued bisacodyl [Dulcolax (bisacodyl)] 5 mg tablet,delayed release (DR/EC) 5 mg PO ONCE Qty: 4 0RF Rx Instructions: Take per colonoscopy instructions provided by ordering providers office polyethylene glycol 3350 17 gram/dose powder 17 g PO ONCE Qty: 238 0RF Rx Instructions: Take per colonoscopy instructions provided by ordering providers office Discharge Instructions Instructions: Diverticulosis (GEN), Colorectal Polyps (GEN), Diverticulosis Diet (GEN) Additional Instructions: José Miguel, we were able to complete your colonoscopy today without much difficulty. I did find 2 polyps, which I removed. They will both be sent off for testing, and once I have the nature of the polyps, I will be in touch with recommendations for your next colonoscopy. You did have a small amount of bleeding from the second polyp. This was controlled with a little bit of cautery (or electricity) and it looks fine upon completion of the polyp removal. However, I would like you to hold your Xarelto until Sunday to help minimize the chances of bleeding complications. Please let the office know if you experience any significant bleeding associated with your bowel movements over the next 24 to 48 hours. Incidentally, you also have a little bit of diverticulosis. Diverticula are sm all weak spots in the muscular part of the colon wall. They can get infected and inflamed. Generally, the best approach is to maintain a diet that is rich in dietary fiber, and stay well-hydrated and avoid symptoms of constipation. I have attached some general information here regarding both polyps as well as diverticular disease. If you have any questions at all, please do not hesitate to ask at any point. 1. If tolerated, consume a soft, low fiber diet for 1-2 days. 2[address] Do not drive, drink alcohol, operate machinery, make critical decisions, or do activities that require coordination or balance for 24 hours. 3. Because air was put into your colon during the procedure, expelling air from your rectum (passing gas or farting) is normal. 4. You may not have a bowel movement for 1-3 days because of the colonoscopy prep. This is normal. 5. Go directly to the emergency room if you notice any of the following: Develop chills (warm to touch), or if you have a thermometer and your temperature is above 101 Difficulty breathing or difficultly swallowing Persistent vomiting Severe abdominal pain, other than gas cramps Severe chest pain Black, tarry stools Any bleeding ? exceeding one tablespoon 6. Call your physician if the site where your intravenous was started becomes red, swollen, painful, and warm to touch. 7. Your physician has reviewed your pre-procedure medications. Please continue to take those medications as previously ordered. You will be given specific information/education regarding any changes to your medications before leaving. Activity:: Activity as Tolerated Diet:: As Tolerated Discharge Orders Discharge Orders: Discharge Order (Routine); Ordered 05/23/23 Ordered By: Geovanni Don DS: Diagnosis Discharge Diagnosis (1) Encounter for screening colonoscopy: Status: Acute Asessment and Plan: Follow-up on polypectomy results
--- NOTE | 2023-05-23 18:28 | COLE_ITS ---
Date of service: 05/24/23 Time of Service: 09:09 Colonoscopy Report Date of procedure: 05/24/23 Pre-op diagnosis general: screening colonoscopy Post-op diagnosis procedure note: other (Colorectal polyps, diverticulosis) Procedure: colonoscopy with polypectomy Surgeon: Geovanni Don Anesthesia Type: General:No Airway Estimated blood loss (mL): 15 Pathology: other (0.75 cm polyp at 95 cm, 0.5 cm polyp at 80 cm) Complications: None Disposition: same day Indications: José Miguel is a 72 year old man with a history of adenomatous polyps who needs his next screening colonoscopy Prep: Miralax/Dulcolax Procedure Start Time: 08:15 Procedure End Time: 08:59 Retraction Time: 24 Findings: Sigmoid diverticulosis; 0.75 cm polyp at 95 cm, 0.5 cm polyp at 80 cm Procedure Description: After the induction of monitored anesthetic care, and with the patient in left lateral decubitus position, I began by performing an external anorectal exam.? Perineum and skin were normal, as was the anal verge.? There was no evidence of external hemorrhoids.? Next, I performed a digital rectal exam.? I did appreciate any abnormal findings.? Next, I advanced a colonoscope into the rectal vault.? I performed retroflexion.? This appeared normal.? Using in sufflation, I then advanced the colonoscope beyond the rectal folds and into the sigmoid colon before advancing towards the cecum.? There was sigmoid diverticulosis. The scope was noted to be in the cecum by identification of the ileocecal valve and appendiceal orifice.? I then began withdrawing the colonoscope using repeated irrigation as necessary for full evaluation of the colonic mucosa. Around 95 cm from the anal verge was a 0.75 cm polyp. It was slightly pedunculated. Narrowband imaging was used to assist with the analysis. This was removed with cold snare polypectomy with minimal bleeding. Similarly, I found another polyp at 80 cm. Configuration of this polyp was slightly atypical. Again, narrowband imaging was used. This polyp was removed in piecemeal with cold forceps. There was a small amount of bleeding after completion polypectomy. Cautery was used to control this. once the scope was withdrawn to the level of the rectum, great care was taken to examine portions of the rectal folds.? Finally, the scope was withdrawn and the patient was brought to the same-day surgery recovery unit as the anesthetic wore off. ?The findings and instructions were shared with the patient prior to discharge. [employer] Bowel Prep [employer] Bowel Prep Right Colon: 2 Left Colon: 2 Transverse Colon: 2 Total Score: 6
[2023-05-24 07:13] VITALS: BP 146/64; PULSE 80; RESP 16; TEMP 36.6; O2SAT 99
[2023-05-24] MEDS: Lactated Ringers 1,000 ML 80 ML IV (07:21)
[2023-05-24 07:41] VITALS: BMI 29.2
--- NOTE | 2023-05-24 08:40 | BOWEL_PTH ---
PATIENT: José Miguel Ryder LOC: [facility] U#:[id number] AGE/SX: 72/M ROOM: RE05/24/[address]: Geovanni Don MD : [id number] BED: DIS: 05/24/2023 SPEC #: [id number] RECD: 05/24/23 12:06 STATUS: [facility] REQ #: [id number] SEAN: 05/24/23 08:[address]: Geovanni Don DEPT: Surgical Specimen RECD BY: Lashell Hyatt ENTERED: 05/24/23 12:06 SP TYPE: Bowel OTHR DR: Charbel De Paz Tissues: 1 - BIOPSY BOWEL 2 - BIOPSY BOWEL Procedures: GROSS AND MICRO LEVEL 4 Comments: [id number]
[2023-05-24 09:05] VITALS: BP 106/90; PULSE 69; RESP 16; TEMP 36.4; O2SAT 98
--- NOTE | 2023-05-24 09:27 | W.ANESPOSTOP ---
Postoperative Evaluation Date, Time and Location Date Performed: 05/24/23 Time Performed: 09:16 Patient Location: Day Surgery Unit Vital Signs Most Recent Imported Vital Signs: Most Recent Vital Signs Temp Pulse Resp BP Pulse Ox 36.4 C L 69 16 106/90 98 05/24/23 09:05 05/24/23 09:05 05/24/23 09:05 05/24/23 09:05 05/24/23 09:05 Pain Score Most Recent Pain Score: Most Recent Pain Score Pain Level 0 05/24/23 09:05 Assessment Mental Status: Awake (Alert & Oriented to Patient Baseline) Airway and Respiratory Function: Patent airway with normal (patient baseline) respiratory exam Cardiovascular Function: Hemodynamically Stable Hydration Status: Adequately Hydrated Nausea & Vomiting: No Nausea or Vomiting Pain: Pt. Denies Any Pain Peripheral Nerve Block: Patient did not receive a nerve block
[2023-05-24 09:31] VITALS: BP 143/73; PULSE 66; RESP 16; TEMP 36.5; O2SAT 100
== END 2023-05-24 10:13 | disposition home or self-care (01) ==
LOC: SUR 06:49
PROVIDERS: PCP Family Medicine; Visit Provider Surgery
PROC: 0DJD8ZZ Inspection of Lower Intestinal Tract, Via Natural or Artificial Opening Endoscopic (ICD-10-PCS; CPT 45378; principal; 2023-05-24 08:15)
DX: Z12.11 Encounter for screening for malignant neoplasm of colon (principal); D12.3 Benign neoplasm of transverse colon; K57.30 Diverticulosis of large intestine without perforation or abscess without bleeding; K63.89 Other specified diseases of intestine
CPT/HCPCS: 45380; 88305; J2704

== ENCOUNTER 2023-09-10 15:12 | Outpatient (REF) | payer MEDICARE, SELFPAY ==
[2023-09-10 15:47] LABS: HCT 42.5 % (40.0-50.0); HGB 14.5 g/dL (13.5-17.5); MCH 31.7 pg (27.0-33.0); MCHC 34.1 % (32.0-36.0); MCV 93 fL (80-95); MPV 9.8 fL (8.0-11.0); Platelet Count 276 10^3/uL (130-400); RBC 4.58 10^6/uL (4.36-5.78); RDW 12.7 % (11.8-14.1); RDW-SD 43.6 fL; WBC 7.62 10^3/uL (4.4-10.8)
[2023-09-10 16:21] LABS: ALT 33 U/L (16-63); AST 17 U/L (15-37); Albumin 4.2 g/dL (3.4-5.0); Alkaline Phosphatase 69 U/L (46-116); Anion Gap 10.6 mmol/L (3-11); BUN 22 mg/dL (7-18); Bilirubin, Total 0.82 mg/dL (0.2-1.0); CO2 26.4 mmol/L (21.0-32.0); CREATININE 0.9 mg/dL (0.70-1.30); Calcium 9.3 mg/dL (8.5-10.1); Calculated LDL 77 mg/dL (<100); Chloride 105 mmol/L (98-107); Cholesterol 144 mg/dL (<200); Estimated GFR 90.74 (mL/min/1.73m2); Glucose 152 mg/dL (74-106); HDL Cholesterol 54 mg/dL (40-60); Potassium 4.6 mmol/L (3.5-5.1); Sodium 142 mmol/L (136-145); Triglyceride 66 mg/dL (<150)
[2023-09-10 16:28] LABS: Hemoglobin A1C 6.7 % (<5.7)
== END 2023-09-10 15:13 | disposition home or self-care (01) ==
LOC: NCHCN 15:12
PROVIDERS: PCP Family Medicine; Visit Provider Family Medicine
DX: Z00.00 Encounter for general adult medical examination without abnormal findings (principal)
CPT/HCPCS: 80053; 80061; 85027; 83036

== ENCOUNTER 2023-11-29 07:51 | Day surgery (SDC) | payer MEDICARE, SELFPAY ==
[2023-11-29 08:28] VITALS: BP 140/74; PULSE 71; RESP 14; TEMP 37.2; O2SAT 97
[2023-11-29] MEDS: Lactated Ringers 1,000 ML 80 ML IV (08:50)
[2023-11-29] MEDS: Sulfameth/Trimeth DS TAB 1 TAB PO (09:05)
--- NOTE | 2023-11-29 10:03 | W.PM.HP.N ---
Date of service: 11/29/23 Time of Service: 10:03 Assessment and Plan Assessment and plan (1) Bladder cancer: (2) Carcinoma in situ of bladder: Assessment and plan: For cystoscopy with possible transurethral resection of bladder tumor History of Present Illness History of Present Illness Chief Complaint: Bladder cancer Narrative: This is a 73-year-old gentleman who has a history of urothelial cell carcinoma of the bladder and carcinoma in situ. He was treated with transurethral resection along with intravesical BCG treatments. We utilize gemcitabine when BCG was not available. He comes in for surveillance cystoscopy and possible transurethral resection of any visible bladder tumor. His last tumor recurrence was about 30 months ago. Review of Systems Narrative: No fevers or chills No vision change or dysphasia No diabetes or thyroid dysfunction Asthma. No hemoptysis No chest pain or palpitations GERD. No hepatitis, ulcers, jaundice, diarrhea or constipation No seizures, strokes or peripheral neuropathy No bleeding disorders or anemia No gout PFSH All Active Problems Encounter for screening colonoscopy (Acute) Hypertension (Chronic) Onychomycosis (Acute) Trigger finger, right middle finger (Acute) Nocturia (Acute) Finger laceration (Acute) BPH w urinary obs/LUTS (Acute) Medical History Tubular adenoma of colon (11/30/15) Carcinoma in situ of bladder Bladder cancer RLS (restless legs syndrome) Ventricular septal defect Pt. stated he was told this was benign and no issues because it was so small Elevated PSA DJD (degenerative joint disease) Patient denies having arthritis or DJD. Adenomatous colon polyp Skin lesion Lower abdominal pain Left shoulder pain Ceruminosis Obesity IBS (irritable bowel syndrome) Peripheral neuropathy Asthma GERD (gastroesophageal reflux disease) Elevated blood pressure reading Dysthymia Abdominal bloating Surgical History History of colonoscopy (~04/2023) path sent H/O cardiac radiofrequency ablation November 2022-for Afib Hx of cystoscopy Social History Smoking/Tobacco Use Status: Never Smoking risk assessment performed?: Yes Alcohol Intake: former Drug use: Never Substance use type: does not use Household members: spouse Housing: house Current gender identity: male What is your relationship status?: Panel score (0-1 are the most socially isolated patients): 1 Do you feel safe at home: Yes Do you feel safe in your relationship?: Yes Meds Allergies and Home Medications Allergies Allergy/AdvReac Type Severity Reaction Status Date / Time Penicillins Allergy as child, Verified 11/27/23 15:08 unknown ropinirole HCl (From Requip) AdvReac Intermediate Contraindic Verified 11/27/23 15:08 ated Home Medications ?Medication ?Instructions ?Recorded ?Confirmed ?Type omeprazole 10 mg capsule,delayed 20 mg PO DAILY 09/27/15 11/29/23 History release albuterol sulfate 90 mcg/actuation 2 puff inhalation Q6H PRN 04/28/19 11/29/23 History aerosol inhaler (Ventolin HFA) multivitamin 1 tab PO DAILY 08/26/19 11/29/23 History albuterol sulfate 2.5 mg/3 mL 2.5 mg inhalation QID PRN 02/22/22 11/29/23 History (0.083 %) solution for nebulization rivaroxaban 20 mg tablet (Xarelto) 20 mg PO DAILY 02/05/23 11/27/23 History atorvastatin 20 mg tablet 20 mg PO DAILY 05/03/23 11/29/23 History fluticasone propion-salmeterol inhalation Asthma 11/29/23 History Exam Const General: cooperative Neck Neck: normal visual inspection and supple Resp Effort & Inspection: normal respiratory effort Auscultation: clear to auscultation bilaterally Cardio Rate: regular rate Rhythm: regular rhythm GI Palpation: soft and no masses Neuro General: patient alert, patient awake and patient oriented x3 Results Last Vital Signs Temp 37.2 C 11/29/23 08:28 Pulse 71 11/29/23 08:28 Resp 14 11/29/23 08:28 BP 140/74 11/29/23 08:28 Pulse Ox 97 11/29/23 08:28 Time Spent Time spent with Patient: <40 minutes Time was spent: other
--- NOTE | 2023-11-29 10:32 | ANES.PREOP_ITS ---
General Info Date of Service Date Performed: 11/29/23 Height: 5 ft 11 in Weight: 97.2 kg Body Mass Index (BMI): 29.9 Surgical Procedure: Operation Date: 11/29/23 11:10 Proposed Procedure Side Surgeon p Cystoscopy/ Possible Transurethral Resection Bladder Tumor Romain Abdi MD Meds Allergies and Home Medications Allergies Allergy/AdvReac Type Severity Reaction Status Date / Time Penicillins Allergy as child, Verified 11/27/23 15:08 unknown ropinirole HCl (From Requip) AdvReac Intermediate Contraindic Verified 11/27/23 15:08 ated Home Medication ?Medication ?Instructions ?Recorded omeprazole 10 mg capsule,delayed 20 mg PO DAILY 09/27/15 release albuterol sulfate 90 mcg/actuation 2 puff inhalation Q6H PRN 04/28/19 aerosol inhaler (Ventolin HFA) multivitamin 1 tab PO DAILY 08/26/19 albuterol sulfate 2.5 mg/3 mL 2.5 mg inhalation QID PRN 02/22/22 (0.083 %) solution for nebulization rivaroxaban 20 mg tablet (Xarelto) 20 mg PO DAILY 02/05/23 atorvastatin 20 mg tablet 20 mg PO DAILY 05/03/23 fluticasone propion-salmeterol inhalation Asthma 11/29/23 Current Visit Medications: Current Medications Generic Name Dose Route Start Last Admin Trade Name Freq PRN Reason Stop Dose Admin Ringer's Solution 1,000 mls @ 80 mls/hr 11/29/23 06:00 11/29/23 08:50 IV 12/28/23 23:59 80 mls/hr INFUSION ABE Administration IV Miscellaneous Supplies 1 each 11/29/23 06:00 Iv Access IV 12/28/23 23:59 DIRECTED ABE Sodium Chloride 0 ml 11/29/23 06:00 Normal Saline Flush 10 Ml Syr IV 12/28/23 23:59 PRN PRN Sodium Chloride 0 ml 11/29/23 06:00 Normal Saline 10 Ml Vial IJ 12/28/23 23:59 DIRECTED PRN Sterile Water 0 ml 11/29/23 06:00 Water,Injection,Sterile 10 Ml Vial IJ 12/28/23 23:59 DIRECTED PRN PFSH Active Problems Active Problems: Problem Status Onset Code Encounter for screening colonoscopy Acute Z12.11 Hypertension Chronic I10 Onychomycosis Acute B35.1 Trigger finger, right middle finger Acute M65.331 Nocturia Acute R35.1 Finger laceration Acute S61.219A BPH w urinary obs/LUTS Acute N40.1, N13.8 Medical History Medical History Tubular adenoma of colon (11/30/15) Carcinoma in situ of bladder Bladder cancer RLS (restless legs syndrome) Ventricular septal defect Pt. stated he was told this was benign and no issues because it was so small Elevated PSA DJD (degenerative joint disease) Patient denies having arthritis or DJD. Adenomatous colon polyp Skin lesion Lower abdominal pain Left shoulder pain Ceruminosis Obesity IBS (irritable bowel syndrome) Peripheral neuropathy Asthma GERD (gastroesophageal reflux disease) Elevated blood pressure reading Dysthymia Abdominal bloating Surgical History Surgical History History of colonoscopy (~04/2023) path sent H/O cardiac radiofrequency ablation November 2022-for Afib Hx of cystoscopy Tobacco Smoking/Tobacco Use Status: Never Alcohol Alcohol Intake: former Substance Use Substance use: Never Substance use type: does not use Vital Signs and Lab Results Vital Signs Most Recent Vital Signs in EMR: Most Recent Vital Signs Temp Pulse Resp BP Pulse Ox 37.2 C 71 14 140/74 97 11/29/23 08:28 11/29/23 08:28 11/29/23 08:28 11/29/23 08:28 11/29/23 08:28 Lab Results Blood Type / Crossmatch: No Data to Display Complete Blood Count: No Data to Display Complete Metabolic Panel: No Data to Display Liver Function Panel: No Data to Display Coagulation Panel: No Data to Display Cardiac Panel: No Data to Display Arterial Blood Gas: No Data to Display Venous Blood Gas: No Data to Display Pancreas Panel: No Data to Display Thyroid Panel: No Data to Display Infectious Disease: No Data to Display Blood Cultures: No Data to Display Toxicology Panel: No Data to Display Imaging and Studies Imaging and Studies Study information below may be from another EMR and interpreted by another provider. Please see original notes in EMR for more complete details. Stress Test Summary: Date of Exam: 08/17/20Sex: M Admission Date: 08/17/20 Indications: AFIB MPI Conclusion Myocardial perfusion was normal without evidence of ischemia or prior infarction EF 50% Echocardiogram Summary: 11/18 [facility] [place] LVEF 65%, RV sys normal fxn/size, mild MR Date of Exam: 08/03/20Sex: M Admission Date: 08/03/20 Indications: Atrial Fibrillation, VSD Conclusion Left Ventricle : The left ventricle is normal size. The left ventricular ejection fraction is within the normal range. There is normal left ventricular wall thickness. There is normal LV segmental wall motion. The left ventricular diastolic function is normal. There is a ventricular septal defect visualized. Seen best on image 64. LVEF is 58%. Right Ventricle : The right ventricle is normal size. The right ventricular systolic function is normal. The RVSP is 61.9 mmHg. Atria : The left atrium size is normal. The right atrium size is normal. Mitral Valve : The mitral valve is normal in structure. Trace to mild mitral regurgitation. No evidence of mitral valve stenosis. Great Vessels : The aortic root is normal in size. The ascending aorta is normal in size. Aortic arch is normal in caliber. IVC is normal in size and collapses >50% with inspiration. There is no prior study available for comparison. Anesthesia Assessment and Plan Anesthesia History Personal History: No History of Anesthesia Complications Family History: No Family History of Anesthesia Complications Exercise Tolerance Exercise Tolerance: Metabolic Equivalents>4 Pertinent Negatives Pertinent Negatives: No Symptoms of GERD Cardiac & Pulmonary Exam Cardiac Exam: Normal S1/S2 Heart Sounds Pulmonary Exam: Clear Bilateral Breath Sounds Implantable Cardiac Device Does patient have a Pacemaker or an ICD?: No Airway Exam Known Difficult Airway: No Mallampati Class: 1 Mouth Opening: Normal (> 3cm) Thyromental Distance: Greater than 3 cm Neck Range of Motion: Full ROM Neck Circumference: Normal Teeth Condition: Normal Dentition ASA Classification ASA Score: ASA 3 Emergency Case?: No NPO Status NPO Status: NPO Clears >2 hours, Solids >8 hours Anesthesia Plan Resuscitation Status: Full Code Anesthesia Technique: General Anesthesia Airway Planned: Natural Airway Monitors Used: Standard Monitors
[2023-11-29] MEDS: Lidocaine 2% Jelly 11 ML SYR (11:29)
[2023-11-29 11:30] VITALS: BMI 29.9
--- NOTE | 2023-11-29 11:31 | PAPNONF_PTH ---
PATIENT: José Miguel Ryder LOC: [facility] U#:[id number] AGE/SX: 73/M ROOM: RE11/29/[address]: Romain Abdi MD : [id number] BED: DIS: 11/29/2023 SPEC #: [id number] RECD: 11/29/23 13:25 STATUS: [facility] REQ #: [id number] SEAN: 11/29/23 11:[address]: Romain Abdi DEPT: [facility] Cytology RECD BY: Lashell Hyatt ENTERED: 11/29/23 13:26 SP TYPE: MEGAN CONRAD DR: Charbel De Paz Tissues: 1 - BODY FLUID CYTO(SPUTUM/URINE)[facility] Procedures: BODY FLUID CYTO(URINE/SPUTUM) Comments: [id number] (TV = 100 ml) (REFRIGERATED) (50 ml URINE & 30 ml CYTOLYT ADDED)
--- NOTE | 2023-11-29 11:43 | W.PM.DSUDISC ---
Date of service: 11/29/23 Time of Service: 11:43 Discharge Plan Disposition Patient Disposition: Home Condition: Stable Discharge Details Reason For Visit: cystoscopy Attending Provider: Romain Abdi Primary Care Provider: Charbel De Paz Home Meds and New Rx's Prescriptions: No Action Xarelto 20 mg tablet 20 mg PO DAILY Rx Instructions: must administer with evening meal omeprazole 10 MG capsule,delayed release(DR/EC) 20 mg PO DAILY albuterol sulfate [Ventolin HFA] 90 mcg/actuation HFA aerosol inhaler 2 puff IH Q6H PRN albuterol sulfate 2.5 mg /3 mL (0.083 %) solution for nebulization 2.5 mg inhalation QID PRN fluticasone propion-salmeterol [Advair HFA] inhalation Patient Comments: 11/29/23 pt reported he takes this med. FS RN multivitamin Tablet 1 tab PO DAILY atorvastatin 20 mg tablet 20 mg PO DAILY Patient Comments: Take 1 tablet by mouth once a day Discharge Instructions Additional Instructions: May restart anticoagulants Followup 1 to 2 weeks to review cytology results (can be by phone or in person) We will decide on timing of next cystoscopy based on the cytology results Stand Alone Forms: Anesthesia Discharge Inst., [facility] Donna Rajan ([facility]) Activity:: Activity as Tolerated Shower/Bathe:: 24 hours Diet:: As Tolerated Discharge Orders Discharge Orders: Discharge Order (Routine); Ordered 11/29/23 Ordered By: Romain Abdi DS: Diagnosis Discharge Diagnosis (1) Bladder cancer: (2) Carcinoma in situ of bladder:
[2023-11-29 11:44] VITALS: BP 127/75; PULSE 73; RESP 18; TEMP 36.2; O2SAT 99
--- NOTE | 2023-11-29 11:47 | W.PM.OP ---
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 He has been treated with transurethral resection along with intravesical BCG. When BCG was not available, we would use gemcitabine bladder installations. His last tumor occurrence was about 30 months ago. He presents for surveillance cystoscopy. Findings: No visible bladder tumor Procedure Description: The patient was given preoperative oral antibiotics and brought to the operating room on 11/29/2023. After successful induction of general anesthesia without intubation, he was placed in the dorsal lithotomy position. His genitalia was prepped and draped. 2% Xylocaine jelly was instilled into the urethra to act as a local anesthetic. A 22 [place] rigid cystoscope was passed through the urethra into the bladder. The bladder was emptied, the urine was collected and sent to the lab for cytology examination. The urethra and bladder were inspected with the 30 degree lens. The pendulous, bulbar and membranous urethra appeared normal with no strictures. The prostatic urethra was a bit irregular consistent with a previous transurethral resection of the prostate. No papillary lesions were seen on the prostatic mucosa. The bladder neck was entered and the bladder mucosa was inspected. Both ureteral orifices appeared normal with no blood coming from either side. No papillary or nodular lesions were seen on any portion of the bladder mucosa. These findings were confirmed on reinspection of the bladder using a 70 degree lens. The bladder was then emptied and the cystoscope was withdrawn. The patient tolerated this procedure well with no complications.
--- NOTE | 2023-11-29 11:57 | W.ANESPOSTOP ---
Postoperative Evaluation Date, Time and Location Date Performed: 11/29/23 Time Performed: 11:43 Patient Location: Day Surgery Unit Vital Signs Most Recent Imported Vital Signs: Most Recent Vital Signs Temp Pulse Resp BP Pulse Ox 36.2 C L 73 18 127/75 99 11/29/23 11:44 11/29/23 11:44 11/29/23 11:44 11/29/23 11:44 11/29/23 11:44 Pain Score Most Recent Pain Score: Most Recent Pain Score Pain Level 0 11/29/23 11:44 Assessment Mental Status: Awake (Alert & Oriented to Patient Baseline) Airway and Respiratory Function: Patent airway with normal (patient baseline) respiratory exam Cardiovascular Function: Hemodynamically Stable Hydration Status: Adequately Hydrated Nausea & Vomiting: No Nausea or Vomiting Pain: Pt. Denies Any Pain Peripheral Nerve Block: Patient did not receive a nerve block
[2023-11-29] MEDS: Phenazopyridine 200 MG TAB PO (12:19)
[2023-11-29 12:20] VITALS: BP 138/68; PULSE 64; RESP 16; TEMP 36.2; O2SAT 99
== END 2023-11-29 12:55 | disposition home or self-care (01) ==
PROVIDERS: PCP Family Medicine; Visit Provider Urology
PROC: 0TBB8ZZ Excision of Bladder, Via Natural or Artificial Opening Endoscopic (ICD-10-PCS; CPT 52000; principal; 2023-11-29 11:00)
DX: Z08 Encounter for follow-up examination after completed treatment for malignant neoplasm (principal); Z85.51 Personal history of malignant neoplasm of bladder
CPT/HCPCS: 52000; 88104; J2003; J2704

== ENCOUNTER → 2023-12-25 10:44 | Outpatient (BNVA) | payer MEDICARE, SELFPAY | PROVIDERS: PCP Family Medicine; Referring Provider Family Medicine; Visit Provider Urology | DX: C67.9 Malignant neoplasm of bladder, unspecified (principal) | CPT/HCPCS: 99213 ==

== ENCOUNTER 2024-01-14 08:35 | Outpatient (CLI) | payer MEDICARE, SELFPAY | END 2024-01-14 08:36 | disposition home or self-care (01) | PROVIDERS: PCP Family Medicine; Visit Provider Family Medicine | DX: I48.0 Paroxysmal atrial fibrillation (principal) | CPT/HCPCS: 93246 ==

== ENCOUNTER 2024-03-25 11:31 | Outpatient (CLI) | payer MEDICARE, SELFPAY ==
--- NOTE | 2024-03-25 12:20 | W.CARDEVENT ---
Date of service: 03/25/24 Time of Service: 12:20 Cardiac Event Recorder Referring Provider:: Charbel De Paz Indications:: Atrial fibrillation and Cardiac Event Note: This is a cardiac event monitor. Patient was monitored for 9 days and 16 hours. Rhythm throughout was sinus with an average heart rate of 73. Minimum was 53, maximum 104 There were rare ventricular ectopic beats. There were rare atrial premature beats. A total of 18 self-limited atrial runs occurred. Most were less than 10 beats in duration. There was 1 lasting 20 beats. There was no atrial fibrillation, no high-grade block, no pauses greater than 3 seconds No symptoms were reported
== END 2024-03-25 11:32 | disposition home or self-care (01) ==
LOC: CARDOPNVT 11:31
PROVIDERS: PCP Family Medicine; Visit Provider Internal Medicine Cardiovascular Disease
DX: I48.91 Unspecified atrial fibrillation (principal); I49.1 Atrial premature depolarization
CPT/HCPCS: 93248

== ENCOUNTER 2024-06-26 07:08 | Day surgery (SDC) | payer MEDICARE, SELFPAY ==
--- NOTE | 2024-06-26 06:30 | ANES.PREOP_ITS ---
General Info Date of Service Date Performed: 06/26/24 Height: 5 ft 11 in Weight: 92.986 kg Body Mass Index (BMI): 28.5 Surgical Procedure: Operation Date: 06/26/24 08:55 Proposed Procedure Side Surgeon p Cystoscopy w/Possible Transurethral Resection Bladder Tumor Romain Abdi MD Meds Allergies and Home Medications Allergies Allergy/AdvReac Type Severity Reaction Status Date / Time Penicillins Allergy as child, Verified 06/26/24 07:20 unknown ropinirole HCl (From Requip) AdvReac Intermediate Contraindic Verified 06/26/24 07:20 ated Home Medication ?Medication ?Instructions ?Recorded omeprazole 10 mg capsule,delayed 20 mg PO DAILY 09/27/15 release albuterol sulfate 90 mcg/actuation 2 puff inhalation Q6H PRN 04/28/19 aerosol inhaler (Ventolin HFA) multivitamin 1 tab PO DAILY 08/26/19 albuterol sulfate 2.5 mg/3 mL 2.5 mg inhalation QID PRN 02/22/22 (0.083 %) solution for nebulization atorvastatin 20 mg tablet 20 mg PO DAILY 05/03/23 fluticasone propion-salmeterol 2 inh inhalation DAILY PRN Asthma 11/29/23 Current Visit Medications: Current Medications Generic Name Dose Route Start Last Admin Trade Name Freq PRN Reason Stop Dose Admin Ringer's Solution 1,000 mls @ 80 mls/hr 06/26/24 06:00 IV 06/26/24 23:59 INFUSION ABE IV Miscellaneous Supplies 1 each 06/26/24 06:00 Iv Access IV 06/26/24 23:59 DIRECTED ABE Sodium Chloride 0 ml 06/26/24 06:00 Normal Saline Flush 10 Ml Syr IV 06/26/24 23:59 PRN PRN Sodium Chloride 0 ml 06/26/24 06:00 Normal Saline 10 Ml Vial IJ 06/26/24 23:59 DIRECTED PRN Sterile Water 0 ml 06/26/24 06:00 Water,Injection,Sterile 10 Ml Vial IJ 06/26/24 23:59 DIRECTED PRN Trimethoprim/Sulfamethoxazole 1 tab 06/26/24 06:00 Sulfameth/Trimeth Ds Tab PO 06/26/24 16:30 NOW ABE PFSH Active Problems Active Problems: Problem Status Onset Code Encounter for screening colonoscopy Acute Z12.11 Hypertension Chronic I10 Onychomycosis Acute B35.1 Trigger finger, right middle finger Acute M65.331 Nocturia Acute R35.1 Finger laceration Acute S61.219A BPH w urinary obs/LUTS Acute N40.1, N13.8 Medical History Medical History Tubular adenoma of colon (11/30/15) Carcinoma in situ of bladder Bladder cancer RLS (restless legs syndrome) Ventricular septal defect Pt. stated he was told this was benign and no issues because it was so small Elevated PSA DJD (degenerative joint disease) Patient denies having arthritis or DJD. Adenomatous colon polyp Skin lesion Lower abdominal pain Left shoulder pain Ceruminosis Obesity IBS (irritable bowel syndrome) Peripheral neuropathy Asthma GERD (gastroesophageal reflux disease) Elevated blood pressure reading Dysthymia Abdominal bloating Surgical History Surgical History History of colonoscopy (~04/2023) path sent H/O cardiac radiofrequency ablation November 2022-for Afib Hx of cystoscopy Tobacco Smoking/Tobacco Use Status: Never Alcohol Alcohol Intake: former Substance Use Substance use: Never Substance use type: does not use Vital Signs and Lab Results Vital Signs Most Recent Vital Signs in EMR: Temp Pulse Resp BP Pulse Ox 36.4 C L 68 18 139/76 99 06/26/24 07:24 06/26/24 07:24 06/26/24 07:24 06/26/24 07:24 06/26/24 07:24 Lab Results Blood Type / Crossmatch: No Data to Display Complete Blood Count: No Data to Display Complete Metabolic Panel: No Data to Display Liver Function Panel: No Data to Display Coagulation Panel: No Data to Display Cardiac Panel: No Data to Display Arterial Blood Gas: 2 No Data to Display Venous Blood Gas: No Data to Display Pancreas Panel: No Data to Display Thyroid Panel: No Data to Display Infectious Disease: No Data to Display Blood Cultures: No Data to Display Toxicology Panel: No Data to Display Imaging and Studies Imaging and Studies Study information below may be from another EMR and interpreted by another provider. Please see original notes in EMR for more complete details. Stress Test Summary: Date of Exam: 08/17/20Sex: M Admission Date: 08/17/20 Indications: AFIB MPI Conclusion Myocardial perfusion was normal without evidence of ischemia or prior infarction EF 50% [place]ocardiogram Summary: [place] [facility] [place] LVEF 65%, RV sys normal fxn/size, mild MR Date of Exam: 08/03/20Sex: M Admission Date: 08/03/20 Indications: Atrial Fibrillation, VSD Conclusion Left Ventricle : The left ventricle is normal size. The left ventricular ejection fraction is within the normal range. There is normal left ventricular wall thickness. There is normal LV segmental wall motion. The left ventricular diastolic function is normal. There is a ventricular septal defect visualized. Seen best on image 64. LVEF is 58%. Right Ventricle : The right ventricle is normal size. The right ventricular systolic function is normal. The RVSP is 61.9 mmHg. Atria : The left atrium size is normal. The right atrium size is normal. Mitral Valve : The mitral valve is normal in structure. Trace to mild mitral regurgitation. No evidence of mitral valve stenosis. Great Vessels : The aortic root is normal in size. The ascending aorta is normal in size. Aortic arch is normal in caliber. IVC is normal in size and collapses >50% with inspiration. There is no prior study available for comparison. Anesthesia Assessment and Plan Anesthesia History Personal History: No History of Anesthesia Complications Family History: No Family History of Anesthesia Complications Exercise Tolerance Exercise Tolerance: Metabolic Equivalents>4 Cardiac & Pulmonary Exam Cardiac Exam: Normal S1/S2 Heart Sounds Pulmonary Exam: Clear Bilateral Breath Sounds Implantable Cardiac Device Does patient have a Pacemaker or an ICD?: No Airway Exam Known Difficult Airway: No Mallampati Class: 1 Mouth Opening: Normal (> 3cm) Thyromental Distance: Greater than 3 cm Neck Range of Motion: Full ROM Neck Circumference: Normal Teeth Condition: Normal Dentition ASA Classification ASA Score: ASA 3 Emergency Case?: No NPO Status NPO Status: NPO Clears >2 hours, Solids >8 hours Anesthesia Plan Resuscitation Status: Full Code Anesthesia Technique: General Anesthesia Airway Planned: Natural Airway Monitors Used: Standard Monitors Preoperative Comments:: 74 yo male for TURBT Sig PMHx: HTN, VSD, [place] [facility] [place] PASP 60's (2020 echo), RLS, PSA, asthma (albuterol, advair), GERD (omeprazole), BPH. Previous Anes: - ablation, masked with OPA, mac 4 grade 3. - multiple TURPT, prop, natural airway/LMAs, no issues. - colo, prop, natural airway, no issues.
[2024-06-26 06:36] VITALS: BMI 28.5
[2024-06-26 07:24] VITALS: BP 139/76; PULSE 68; RESP 18; TEMP 36.4; O2SAT 99
[2024-06-26] MEDS: Sulfameth/Trimeth DS TAB 1 TAB PO (07:36)
[2024-06-26] MEDS: Lactated Ringers 1,000 ML 80 ML IV (08:01)
--- NOTE | 2024-06-26 08:29 | W.PM.DSUDISC ---
Date of service: 06/26/24 Discharge Plan Disposition Patient Disposition: Home Discharge Details Reason For Visit: cystoscopy Attending Provider: Romain Abdi Primary Care Provider: Charbel De Paz Home Meds and New Rx's Prescriptions: No Action omeprazole 10 MG capsule,delayed release(DR/EC) 20 mg PO DAILY albuterol sulfate [Ventolin HFA] 90 mcg/actuation HFA aerosol inhaler 2 puff IH Q6H PRN albuterol sulfate 2.5 mg /3 mL (0.083 %) solution for nebulization 2.5 mg inhalation QID PRN fluticasone propion-salmeterol [Advair HFA] 2 inh inhalation DAILY PRN Patient Comments: 11/29/23 pt reported he takes this med. FS RN multivitamin Tablet 1 tab PO DAILY atorvastatin 20 mg tablet 20 mg PO DAILY Patient Comments: Take 1 tablet by mouth once a day Discharge Instructions Additional Instructions: followup 2 to 3 weeks for bladder biopsy and cytology results Activity:: Activity as Tolerated Shower/Bathe:: 24 hours Diet:: As Tolerated Discharge Orders Discharge Orders: Discharge Order (Routine); Ordered 06/26/24 Ordered By: Romain Abdi
--- NOTE | 2024-06-26 08:35 | W.PM.HP.N ---
Date of service: 06/26/24 Time of Service: 08:35 Assessment and Plan Assessment and plan (1) Bladder cancer: Assessment and plan: For cystoscopy with possible transurethral resection of bladder tumor History of Present Illness History of Present Illness Chief Complaint: Bladder cancer Narrative: This is a 74-year-old gentleman who has a history of urothelial cell carcinoma of the bladder and carcinoma in situ. He was treated with transurethral resection along with intravesical BCG treatments. We utilize gemcitabine when BCG was not available. He comes in for surveillance cystoscopy and possible transurethral resection of any visible bladder tumor. His last tumor recurrence was about 36 months ago. He has not seen any gross hematuria Review of Systems Narrative: No fevers or chills No vision change or dysphasia No diabetes or thyroid Asthma. No hemoptysis No chest pain or palpitations No nausea, vomiting, hepatitis, ulcers, jaundice No seizures, strokes or peripheral neuropathy No bleeding disorders or anemia He is due for trigger finger surgery soon. No gout PFSH All Active Problems Encounter for screening colonoscopy (Acute) Hypertension (Chronic) Onychomycosis (Acute) Trigger finger, right middle finger (Acute) Nocturia (Acute) Finger laceration (Acute) BPH w urinary obs/LUTS (Acute) Medical History Tubular adenoma of colon (11/30/15) Carcinoma in situ of bladder Bladder cancer RLS (restless legs syndrome) Ventricular septal defect Pt. stated he was told this was benign and no issues because it was so small Elevated PSA DJD (degenerative joint disease) Patient denies having arthritis or DJD. Adenomatous colon polyp Skin lesion Lower abdominal pain Left shoulder pain Ceruminosis Obesity IBS (irritable bowel syndrome) Peripheral neuropathy Asthma GERD (gastroesophageal reflux disease) Elevated blood pressure reading Dysthymia Abdominal bloating Surgical History History of colonoscopy (~04/2023) path sent H/O cardiac radiofrequency ablation November 2022-for Afib Hx of cystoscopy Social History Smoking/Tobacco Use Status: Never Smoking risk assessment performed?: Yes Alcohol Intake: former Drug use: Never Substance use type: does not use Household members: spouse Housing: house Current gender identity: male What is your relationship status?: Panel score (0-1 are the most socially isolated patients): 1 Do you feel safe at home: Yes Do you feel safe in your relationship?: Yes Meds Allergies and Home Medications Allergies Allergy/AdvReac Type Severity Reaction Status Date / Time Penicillins Allergy as child, Verified 06/26/24 07:20 unknown ropinirole HCl (From Requip) AdvReac Intermediate Contraindic Verified 06/26/24 07:20 ated Home Medications ?Medication ?Instructions ?Recorded ?Confirmed ?Type omeprazole 10 mg capsule,delayed 20 mg PO DAILY 09/27/15 06/26/24 History release albuterol sulfate 90 mcg/actuation 2 puff inhalation Q6H PRN 04/28/19 06/26/24 History aerosol inhaler (Ventolin HFA) multivitamin 1 tab PO DAILY 08/26/19 06/26/24 History albuterol sulfate 2.5 mg/3 mL 2.5 mg inhalation QID PRN 02/22/22 06/23/24 History (0.083 %) solution for nebulization atorvastatin 20 mg tablet 20 mg PO DAILY 05/03/23 06/26/24 History fluticasone propion-salmeterol 2 inh inhalation DAILY PRN Asthma 11/29/23 06/23/24 History Exam Const General: cooperative Neck Neck: supple Resp Effort & Inspection: normal respiratory effort Auscultation: clear to auscultation bilaterally Cardio Rate: regular rate Rhythm: regular rhythm GI Inspection: normal to inspection Palpation: soft Neuro General: patient alert, patient awake and patient oriented x3 Results Last Vital Signs Temp 36.4 C L 06/26/24 07:24 Pulse 68 06/26/24 07:24 Resp 18 06/26/24 07:24 BP 139/76 06/26/24 07:24 Pulse Ox 99 06/26/24 07:24 Time Spent Time spent with Patient: <40 minutes Time was spent: other
[2024-06-26] MEDS: Lidocaine 2% Jelly 11 ML SYR (09:20)
--- NOTE | 2024-06-26 09:20 | PAPNONF_PTH ---
PATIENT: José Miguel Ryder LOC: [facility] U#:[id number] AGE/SX: 74/M ROOM: RE06/26/[address]: Romain Abdi MD : 1950 BED: DIS: 06/26/2024 SPEC #: [id number] RECD: 06/26/24 12:54 STATUS: [facility] REQ #: [id number] SEAN: 06/26/24 09:[address]: Romain Abdi DEPT: [facility] Cytology RECD BY: Lashell Hyatt ENTERED: 06/26/24 12:54 SP TYPE: MEGAN CONRAD DR: Charbel De Paz Tissues: 1 - BODY FLUID CYTO(SPUTUM/URINE)[facility] Procedures: BODY FLUID CYTO(URINE/SPUTUM) Comments: [id number] (TOTAL VOLUME = 90 ml) (REFRIGERATED) (45 ml URINE & 30 ml CYTOLYTE ADDED IN 2 CONTAINERS)
--- NOTE | 2024-06-26 09:22 | URETHRABX_PTH ---
PATIENT: José Miguel Ryder LOC: [facility] U#:[id number] AGE/SX: 74/M ROOM: RE06/26/[address]: Romain Abdi MD : 1950 BED: DIS: 06/26/2024 SPEC #: [id number] RECD: 06/26/24 12:48 STATUS: [facility] REQ #: [id number] SEAN: 06/26/24 09:[address]: Romain Abdi DEPT: Surgical Specimen RECD BY: Lashell Hyatt ENTERED: 06/26/24 12:48 SP TYPE: URETHRABX OTHR DR: Charbel De Paz Tissues: 1 - URETHRA BIOPSY Procedures: GROSS AND MICRO LEVEL 4 Comments: [id number]
[2024-06-26 09:34] VITALS: BP 122/63; PULSE 65; RESP 16; TEMP 36.1; O2SAT 96
--- NOTE | 2024-06-26 09:37 | ROE_ITS ---
Operative Note Operative Note PRE-OP DIAGNOSIS: bladder cancer POST-OP DIAGNOSIS: same PROCEDURE: cystoscopy with biopsy of prostatic urethra SURGEON: Romain Abdi ANESTHESIA TYPE: Local By Surgeon and General:No Airway Refer to Anesthesia Record ESTIMATED BLOOD LOSS: 5 PATHOLOGY: other (1. urine cytology 2. Prostatic urethral biopsy) COMPLICATIONS: None Patient was transported to: same day Patient's condition: stable Implants: none Indications: This is a 74-year-old gentleman who has a history of urothelial cell carcinoma of the bladder. He also had carcinoma in situ. He was treated with transurethral resection followed by intravesical BCG. He presents for surveillance cystoscopy and possible biopsy. Findings: No bladder lesions Papillary mucosa at prostatic urethra Procedure Description: The patient was given preoperative antibiotics and brought to the operating room on 06/26/2024. After successful induction of general anesthesia, he was placed in the dorsal lithotomy. His genitalia was prepped with Betadine. 2% Xylocaine jelly was instilled into the urethra to act as a local anesthetic. The 22 Malagasy rigid cystoscope was passed through the urethra into the bladder. The bladder and urethra were inspected with the 30 degree lens. The pendulous, bulbar and membranous urethra's appeared normal with no strictures. The prostatic urethra showed some papillary mucosa just on the right side. The area in question measured less than a centimeter in largest dimensions. The bladder neck appeared open from previous resection. The bladder neck was entered and the urine was collected and sent to the laboratory for cytology exams. The bladder was then inspected. Both ureteral orifices appeared normal. No blood was seen coming from either side. No papillary or nodular lesions were seen within the bladder. These findings were confirmed on reinspection of the bladder using a 70 degree lens. We then converted back to the 30 degree lens and withdrew the scope into the prostatic urethra. The papillary area was biopsied with cold cup biopsy forceps and we cauterized the biopsy site with bipolar cautery. The biopsy was sent to pathology for permanent section. The patient tolerated this procedure well with no complications. Date of Procedure: 06/26/24
[2024-06-26 10:03] VITALS: BP 114/81; PULSE 60; RESP 18; TEMP 36.8; O2SAT 100
[2024-06-26] MEDS: Phenazopyridine 200 MG TAB PO (10:07)
--- NOTE | 2024-06-26 10:09 | W.ANESPOSTOP ---
Postoperative Evaluation Date, Time and Location Date Performed: 06/26/24 Time Performed: 10:09 Patient Location: Day Surgery Unit Vital Signs Most Recent Imported Vital Signs: Most Recent Vital Signs Temp Pulse Resp BP Pulse Ox 36.8 C 60 18 114/81 100 06/26/24 10:03 06/26/24 10:03 06/26/24 10:03 06/26/24 10:03 06/26/24 10:03 Pain Score Most Recent Pain Score: Most Recent Pain Score Pain Level 0 06/26/24 10:03 Assessment Mental Status: Awake (Alert & Oriented to Patient Baseline) Airway and Respiratory Function: Patent airway with normal (patient baseline) respiratory exam Cardiovascular Function: Hemodynamically Stable Hydration Status: Adequately Hydrated Nausea & Vomiting: No Nausea or Vomiting Pain: Pt. Denies Any Pain Peripheral Nerve Block: Patient did not receive a nerve block
== END 2024-06-26 10:38 | disposition home or self-care (01) ==
PROVIDERS: PCP Family Medicine; Visit Provider Urology
PROC: 0TBB8ZZ Excision of Bladder, Via Natural or Artificial Opening Endoscopic (ICD-10-PCS; CPT 52204; principal; 2024-06-26 08:45)
DX: C67.9 Malignant neoplasm of bladder, unspecified (principal); N34.2 Other urethritis
CPT/HCPCS: 52204; 88305; 88104; J2405; J2704

== ENCOUNTER → 2024-07-11 14:33 | Outpatient (BNVA) | payer MEDICARE, SELFPAY | PROVIDERS: PCP Family Medicine; Referring Provider Family Medicine; Visit Provider Urology | DX: C67.9 Malignant neoplasm of bladder, unspecified (principal) | CPT/HCPCS: 99213 ==

== ENCOUNTER 2024-07-15 11:43 | Day surgery (SDC) | payer MEDICARE, SELFPAY ==
--- NOTE | 2024-07-15 10:18 | W.PM.DSUDISC ---
Date of service: 07/15/24 Discharge Plan Disposition Patient Disposition: Home Condition: Good Discharge Details Reason For Visit: Right middle trigger finger Attending Provider: Perry Campos Primary Care Provider: Charbel De Paz Home Meds and New Rx's Prescriptions: Continued omeprazole 10 MG capsule,delayed release(DR/EC) 20 mg PO DAILY albuterol sulfate [Ventolin HFA] 90 mcg/actuation HFA aerosol inhaler 2 puff IH Q6H PRN albuterol sulfate 2.5 mg /3 mL (0.083 %) solution for nebulization 2.5 mg inhalation QID PRN fluticasone propion-salmeterol [Advair HFA] 2 inh inhalation DAILY PRN Patient Comments: 11/29/23 pt reported he takes this med. FS RN multivitamin Tablet 1 tab PO DAILY atorvastatin 20 mg tablet 20 mg PO DAILY Patient Comments: Take 1 tablet by mouth once a day Discharge Instructions Stand Alone Forms: Beth Reyes Finger Release Referrals: Perry Campos MD [ [facility] STAFF PHYSICIAN] - Activity:: Elevate Remove Dressings/Wound Care:: 48 hours Shower/Bathe:: 48 hours Diet:: As Tolerated Discharge Orders Discharge Orders: Discharge Order (Routine); Ordered 07/15/24 Ordered By: Meli Hurtado
[2024-07-15 12:18] VITALS: BP 146/82; PULSE 80; RESP 20; TEMP 35.7; O2SAT 99
[2024-07-15] MEDS: Sodium Bicarbonate 50 MEQ/50 ML VIAL (14:11)
[2024-07-15] MEDS: Lidocaine 1% Multi-Dose W/EPI 1/100,000 50 ML VIAL (14:11)
[2024-07-15 14:26] VITALS: BP 144/76; PULSE 67; RESP 16; TEMP 36.6; O2SAT 97
--- NOTE | 2024-07-15 15:28 | W.PM.OP ---
Operative Note Operative Note PRE-OP DIAGNOSIS: Right Middle Finger Trigger Finger POST-OP DIAGNOSIS: same PROCEDURE: Trigger Finger Release - Right Middle Finger SURGEON: Perry Campos ANESTHESIA TYPE: Local By Surgeon Refer to Anesthesia Record ESTIMATED BLOOD LOSS: 0 PATHOLOGY: none sent COMPLICATIONS: None Patient was transported to: same day Patient's condition: stable Indications: I have seen José Miguel in clinic for symptoms of a trigger finger. The catching, clicking, locking, and pain limited function. The diagnosis of trigger finger was evident. The symptoms had not responded to conservative measures. I discussed trigger finger release with the patient. I reviewed the risks of the procedure to include, but not limited to, bleeding, infection, pain, stiffness, incomplete release, damage to nerves or vessels, continued catching, recurrence. Despite these risks, the patient elected to proceed. Findings: There was a tightened A1 minor which was released. The flexor tendons were inspected and the patient was able to move the finger without any catching, clicking, or locking. Procedure Description: José Miguel was greeted in the preoperative holding area where the correct side was identified and marked. The consent was reviewed with the patient and signed. All questions were answered. He was taken back to the operating room. The patient was placed into the supine position on the operating room table with the right arm on an arm board. All bony prominences were well padded. No prophylactic antibiotics were administered since this was a clean, elective hand surgical case. The right arm was then prepped with Chloraprep and draped in a standard fashion with stockinette and extremity drape. A timeout to confirm correct identity, side and site, procedure, allergies, anesthesia, and medical concerns was performed. The surgical site was marked as a oblique incision directly over the A1 minor of the involved digit in the distal palmar flexion crease. This was confirmed with palpation during finger flexion. This area, overlying the metacarpal head, was then anesthetized with 1% Lidocaine with epinephrine, buffered with sodium bicarbonate. The patient tolerated this well and once the anesthetic had setup, the procedure began. A longitudinal incision was made through skin only, approximately 1cm. The deep tissues were dissected bluntly. Once the A1 minor and flexor tendons were identified the soft tissue including neurovascular structures were retracted medially and laterally. There were no crossing structures over the A1 minor. The proximal edge of the minor was identified and the minor was incised with tenotomy scissors. There was a release of the tendons once this was fully released. The tendons were then removed from the wound and inspected. Excess synovium was resected. The tendons were then returned and the patient was asked to move the finger into deep flexion and back to extension. There was no recreation of the pre-operative symptoms. The hand was then once more inspected for any A0 minor or area of possible constriction. The wound was then irrigated and the skin was closed with a 4-0 Nylon. This was dressed with gauze and a Conform dressing. The patient tolerated the procedure well and was returned to the Same Day Surgery area in a stable condition suffering no known complication. Date of Procedure: 07/15/24
== END 2024-07-15 14:35 | disposition home or self-care (01) ==
LOC: SUR 11:43
PROVIDERS: PCP Family Medicine; Visit Provider Student in an Organized Health Care Education/Training Program
PROC: (CPT 26055; principal; 2024-07-15 14:15)
DX: M65.331 Trigger finger, right middle finger (principal)
CPT/HCPCS: 26055; J2004

== ENCOUNTER → 2024-07-25 10:01 | Outpatient (BNVA) | payer MEDICARE, SELFPAY | PROVIDERS: PCP Family Medicine; Referring Provider Family Medicine; Visit Provider Physician Assistant | DX: Z47.89 Encounter for other orthopedic aftercare (principal); M65.331 Trigger finger, right middle finger | CPT/HCPCS: 99024 ==

== ENCOUNTER → 2024-07-28 08:35 | Outpatient (BNVA) | payer MEDICARE, SELFPAY | PROVIDERS: PCP Family Medicine; Referring Provider Family Medicine; Visit Provider Student in an Organized Health Care Education/Training Program | DX: T81.31XA Disruption of external operation (surgical) wound, not elsewhere classified, initial encounter | CPT/HCPCS: 99213 ==

== ENCOUNTER → 2024-08-01 08:03 | Outpatient (BNVA) | payer MEDICARE, SELFPAY | PROVIDERS: PCP Family Medicine; Referring Provider Family Medicine; Visit Provider Physician Assistant | DX: Z47.89 Encounter for other orthopedic aftercare (principal); M65.331 Trigger finger, right middle finger; T81.30XA Disruption of wound, unspecified, initial encounter | CPT/HCPCS: 99024 ==

== ENCOUNTER → 2024-08-28 09:11 | Outpatient (BNVA) | payer MEDICARE, SELFPAY | PROVIDERS: PCP Family Medicine; Referring Provider Family Medicine; Visit Provider Physician Assistant | DX: M65.331 Trigger finger, right middle finger (principal); Z47.89 Encounter for other orthopedic aftercare | CPT/HCPCS: 99024 ==

== ENCOUNTER 2024-09-25 10:05 | Outpatient (REF) | payer MEDICARE, SELFPAY ==
[2024-09-25 15:13] LABS: Abs Immature Grans 0.02 10^3/uL (0.0-0.06); HCT 44.7 % (40.0-50.0); HGB 14.9 g/dL (13.5-17.5); Immature Grans % 0.3 %; MCH 30.5 pg (27.0-33.0); MCHC 33.3 % (32.0-36.0); MCV 91 fL (80-95); MPV 9.8 fL (8.0-11.0); Platelet Count 289 10^3/uL (130-400); RBC 4.89 10^6/uL (4.36-5.78); RDW 12.3 % (11.8-14.1); RDW-SD 41.4 fL; WBC 7.41 10^3/uL (4.4-10.8)
[2024-09-25 15:18] LABS: ALT 40 U/L (16-63); AST 19 U/L (15-37); Albumin 4.3 g/dL (3.4-5.0); Alkaline Phosphatase 71 U/L (46-116); Anion Gap 8.7 mmol/L (3-11); BUN 13 mg/dL (7-18); Bilirubin, Total 0.7 mg/dL (0.2-1.0); CO2 27.3 mmol/L (21.0-32.0); Calcium 9.8 mg/dL (8.5-10.1); Chloride 102 mmol/L (98-107); Estimated GFR 93.45 (mL/min/1.73m2); Glucose 171 mg/dL (74-106); LDL CHOLESTEROL 76 mg/dL (<100); Potassium 4.8 mmol/L (3.5-5.1); Sodium 138 mmol/L (136-145); Total Protein 7.3 g/dL (6.4-8.2)
[2024-09-25 16:27] LABS: COMMENT (LAB VIEW ONLY) 35.51 mg/dL; Microalb ug/mg Crea 31.8 ug/mg Cr
== END 2024-09-25 10:06 | disposition home or self-care (01) ==
LOC: NCHCN 10:05
PROVIDERS: PCP Family Medicine; Visit Provider Family Medicine
DX: E78.5 Hyperlipidemia, unspecified (principal); E11.9 Type 2 diabetes mellitus without complications; I10 Essential (primary) hypertension
CPT/HCPCS: 80053; 83721; 82043; 82570; 85025

== ENCOUNTER 2025-01-26 10:36 | Day surgery (SDC) | payer MEDICARE, SELFPAY ==
[2025-01-26 11:06] VITALS: BP 162/72; PULSE 65; RESP 16; TEMP 36.1; O2SAT 100
[2025-01-26] MEDS: Sulfameth/Trimeth DS TAB 1 TAB PO (11:14)
[2025-01-26] MEDS: Lactated Ringers 1,000 ML 80 ML IV (11:25)
--- NOTE | 2025-01-26 11:38 | ANES.PREOP_ITS ---
General Info Date of Service Date Performed: 01/26/25 Height: 5 ft 11 in Weight: 97.2 kg Body Mass Index (BMI): 29.9 Surgical Procedure: Operation Date: 01/26/25 12:10 Proposed Procedure Side Surgeon p Cystoscopy w/Transurethral Resection Bladder Tumor Romain Abdi MD Meds Allergies and Home Medications Allergies Allergy/AdvReac Type Severity Reaction Status Date / Time Penicillins Allergy as child, Verified 01/26/25 10:56 unknown ropinirole HCl (From Requip) AdvReac Intermediate Contraindic Verified 01/26/25 10:56 ated Home Medication ?Medication ?Instructions ?Recorded omeprazole 10 mg capsule,delayed 20 mg PO DAILY release albuterol sulfate 90 mcg/actuation 2 puff inhalation Q 6H PRN 04/28/19 aerosol inhaler (Ventolin HFA) multivitamin 1 tab PO DAILY 08/26/19 albuterol sulfate 2.5 mg/3 mL 2.5 mg inhalation QID AK N 02/22/22 (0.083 %) solution for nebulization atorvastatin 20 mg tablet 20 mg PO DAILY 05/03/23 fluticasone propion-salmeterol 2 inh inhalation DAILY PRN Asthma 11/29/23 acetaminophen 500 mg capsule 500 mg PO ONCE 01/26/25 budesonide 0.5 mg/2 mL suspension mg 01/26/25 for nebulization Current Visit Medications: Current Medications Generic Name Dose Route Start Last Admin Trade Name Freq PRN Reason Stop Dose Admin Ringer's Solution 1,000 mls @ 80 mls/hr 01/26/25 06:00 01/26/25 11:25 IV 01/26/25 23:59 80 mls/hr INFUSION ABE Administration Sodium Chloride 0 ml 01/26/25 06:00 Normal Saline Flush 10 Ml Syr IV 01/26/25 23:59 PRN PRN Sodium Chloride 0 ml 01/26/25 06:00 Normal Saline 10 Ml Vial IJ 01/26/25 23:59 DIRECTED PRN Sterile Water 0 ml 01/26/25 06:00 Water,Injection,Sterile 10 Ml Vial IJ 01/26/25 23:59 DIRECTED PRN Trimethoprim/Sulfamethoxazole 1 tab 01/26/25 06:00 01/26/25 11:14 Sulfameth/Trimeth Ds Tab PO 01/26/25 23:59 1 tab PREOP ABE Administration PFSH Active Problems Active Problems: Problem Status Onset Code Encounter for screening colonoscopy Acute Z12.11 Hypertension Chronic I10 Onychomycosis Acute B35.1 Nocturia Acute R35.1 Finger laceration Acute S61.219A BPH w urinary obs/LUTS Acute N40.1, N13.8 Medical History Medical History Tubular adenoma of colon (11/30/15) Carcinoma in situ of bladder Bladder cancer RLS (restless legs syndrome) Ventricular septal defect Pt. stated he was told this was benign and no issues because it was so small Elevated PSA DJD (degenerative joint disease) Patient denies having arthritis or DJD. Adenomatous colon polyp Skin lesion Lower abdominal pain Left shoulder pain Ceruminosis Obesity IBS (irritable bowel syndrome) Peripheral neuropathy Asthma GERD (gastroesophageal reflux disease) Elevated blood pressure reading Dysthymia Abdominal bloating Surgical History Surgical History Trigger finger, right middle finger S/P Release: 07/15/2024 History of colonoscopy (~04/2023) path sent H/O cardiac radiofrequency ablation November 2022-for Afib Hx of cystoscopy Tobacco Smoking/Tobacco Use Status: Never Passive smoking exposure: No Alcohol Alcohol Intake: former Substance Use Substance use: Never Substance use type: does not use Vital Signs and Lab Results Vital Signs Most Recent Vital Signs in EMR: Most Recent Vital Signs Temp Pulse Resp BP Pulse Ox 36.1 C L 65 16 162/72 H 100 01/26/25 11:06 01/26/25 11:06 01/26/25 11:06 01/26/25 11:06 01/26/25 11:06 Imaging and Studies Imaging and Studies Study information below may be from another EMR and interpreted by another provider. Please see original notes in EMR for more complete details. Stress Test Summary: Date of Exam: 08/17/20Sex: M Admission Date: 08/17/20 Indications: AFIB MPI Conclusion Myocardial perfusion was normal without evidence of ischemia or prior infarction EF 50% [place]ch[place]ogram [place] [facility] [place] LVEF 65%, RV sys normal fxn/size, mild MR Date of Exam: 08/03/20Sex: M Admission Date: 08/03/20 Indications: Atrial Fibrillation, VSD Conclusion Left Ventricle : The left ventricle is normal size. The left ventricular ejection fraction is within the normal range. There is normal left ventricular wall thickness. There is normal LV segmental wall motion. The left ventricular diastolic function is normal. There is a ventricular septal defect visualized. Seen best on image 64. LVEF is 58%. Right Ventricle : The right ventricle is normal size. The right ventricular systolic function is normal. The RVSP is 61.9 mmHg. Atria : The left atrium size is normal. The right atrium size is normal. Mitral Valve : The mitral valve is normal in structure. Trace to mild mitral regurgitation. No evidence of mitral valve stenosis. Great Vessels : The aortic root is normal in size. The ascending aorta is normal in size. Aortic arch is normal in caliber. IVC is normal in size and collapses >50% with inspiration. There is no prior study available for comparison. Anesthesia Assessment and Plan Anesthesia History Personal History: No History of Anesthesia Complications Family History: No Family History of Anesthesia Complications Exercise Tolerance Exercise Tolerance: Metabolic Equivalents>4 Cardiac & Pulmonary Exam Cardiac Exam: Normal S1/S2 Heart Sounds Pulmonary Exam: Clear Bilateral Breath Sounds Implantable Cardiac Device Does patient have a Pacemaker or an ICD?: No Airway Exam Known Difficult Airway: No Mallampati Class: 1 Mouth Opening: Normal (> 3cm) Thyromental Distance: Greater than 3 cm Neck Range of Motion: Full ROM Neck Circumference: Normal Teeth Condition: Normal Dentition ASA Classification ASA Score: ASA 3 Emergency Case?: No NPO Status NPO Status: NPO Clears >2 hours, Solids >8 hours Anesthesia Plan Resuscitation Status: Full Code Anesthesia Technique: General Anesthesia Airway Planned: Natural Airway Monitors Used: Standard Monitors Preoperative Comments:: 74 yo male for TURBT. Sig PMHx: HTN, VSD, [place]ib [place] [facility] [place] PASP 60's (2019 echo), RLS, PSA, asthma (albuterol (just used), advair), GERD (omeprazole. well controlled), BPH. Previous Anes: - ablation, masked with OPA, mac 4 grade 3. - multiple TURPT, prop, natural airway/LMAs, no issues. - colo, prop, natural airway, no issues.
[2025-01-26 11:41] VITALS: BMI 29.9
--- NOTE | 2025-01-26 12:34 | W.PM.HP.N ---
Date of service: 01/26/25 Time of Service: 12:34 Assessment and Plan Assessment and plan (1) Bladder cancer: Assessment and plan: We he will do cystoscopy and be prepared to perform TURBT if any abnormality is found. History of Present Illness History of Present Illness Chief Complaint: Bladder cancer Narrative: This is a 74-year-old gentleman who has a history of urothelial cell carcinoma of the bladder and carcinoma in situ. He was treated with transurethral resection along with intravesical BCG treatments. We utilized gemcitabine when BCG was not available. He comes in for surveillance cystoscopy and possible transurethral resection of any visible bladder tumor. His last tumor recurrence was about 42 months ago. He has not seen any gross hematuria Review of Systems Narrative: No fevers or chills No vision change or dysphasia No diabetes or thyroid dysfunction Asthma. No shortness of breath, cough or hemoptysis No chest pain or palpitations No nausea, vomiting, hepatitis, ulcers, jaundice, diarrhea or constipation No seizures, strokes or peripheral neuropathy No bleeding disorders or anemia Trigger finger. No gout or arthralgia PFSH All Active Problems Encounter for screening colonoscopy (Acute) Hypertension (Chronic) Onychomycosis (Acute) Nocturia (Acute) Finger laceration (Acute) BPH w urinary obs/LUTS (Acute) Medical History Tubular adenoma of colon (11/30/15) Carcinoma in situ of bladder Bladder cancer RLS (restless legs syndrome) Ventricular septal defect Pt. stated he was told this was benign and no issues because it was so small Elevated PSA DJD (degenerative joint disease) Patient denies having arthritis or DJD. Adenomatous colon polyp Skin lesion Lower abdominal pain Left shoulder pain Ceruminosis Obesity IBS (irritable bowel syndrome) Peripheral neuropathy Asthma GERD (gastroesophageal reflux disease) Elevated blood pressure reading Dysthymia Abdominal bloating Surgical History Trigger finger, right middle finger S/P Release: 07/15/2024 History of colonoscopy (~04/2023) path sent H/O cardiac radiofrequency ablation November 2022-for Afib Hx of cystoscopy Social History Smoking/Tobacco Use Status: Never Smoking risk assessment performed?: Yes Alcohol Intake: former Drug use: Never Substance use type: does not use Household members: spouse Housing: house Current gender identity: male What is your relationship status?: Panel score (0-1 are the most socially isolated patients): 1 Do you feel safe at home: Yes Do you feel safe in your relationship?: Yes Meds Allergies and Home Medications Allergies Allergy/AdvReac Type Severity Reaction Status Date / Time Penicillins Allergy as child, Verified 01/26/25 10:56 unknown ropinirole HCl (From Requip) AdvReac Intermediate Contraindic Verified 01/26/25 10:56 ated Home Medications ?Medication ?Instructions ?Recorded ?Confirmed ?Type omeprazole 10 mg capsule,delayed 20 mg PO DAILY 09/27/15 01/26/25 History release albuterol sulfate 90 mcg/actuation 2 puff inhalation Q6H PRN 04/28/19 01/26/25 History aerosol inhaler (Ventolin HFA) multivitamin 1 tab PO DAILY 08/26/19 01/26/25 History albuterol sulfate 2.5 mg/3 mL 2.5 mg inhalation QID PRN 02/22/22 01/26/25 History (0.083 %) solution for nebulization atorvastatin 20 mg tablet 20 mg PO DAILY 05/03/23 01/26/25 History fluticasone propion-salmeterol 2 inh inhalation DAILY PRN Asthma 11/29/23 01/26/25 History acetaminophen 500 mg capsule 500 mg PO ONCE 01/26/25 01/26/25 History budesonide 0.5 mg/2 mL suspension mg 01/26/25 History for nebulization Exam Const General: cooperative Neck Neck: supple Resp Effort & Inspection: normal respiratory effort Auscultation: clear to auscultation bilaterally Cardio Rate: regular rate Rhythm: regular rhythm GI Palpation: soft and no masses Neuro General: patient alert, patient awake and patient oriented x3 Results Last Vital Signs Temp 36.1 C L 01/26/25 11:06 Pulse 65 01/26/25 11:06 Resp 16 01/26/25 11:06 BP 162/72 H 01/26/25 11:06 Pulse Ox 100 01/26/25 11:06 VTE Prohylaxis Risk Level: Low Risk Contraindications: None Prophylaxis: Mechanical Time Spent Time spent with Patient: <40 minutes Time was spent: other
--- NOTE | 2025-01-26 13:22 | PAPNONF_PTH ---
PATIENT: José Miguel Rdyer LOC: [facility] U#:[id number] AGE/SX: 74/M ROOM: RE01/26/[address]: Romain Abdi MD : 1950 BED: DIS: 01/26/2025 SPEC #: [id number] RECD: 01/26/25 18:23 STATUS: [facility] RECalros #: [id number] SEAN: 01/26/25 13:[address]: Romain Abdi DEPT: [facility] Cytology RECD BY: Lashell Hyatt ENTERED: 01/26/25 18:23 SP TYPE: MEGAN CONRAD DR: Charbel De Paz Tissues: 1 - BODY FLUID CYTO(SPUTUM/URINE)[facility] Procedures: BODY FLUID CYTO(URINE/SPUTUM) Comments: [id number] (TV = 70 ml, 30 ml CYTOLYT ADDED) (REFRIGERATED)
[2025-01-26] MEDS: Lidocaine 2% Jelly 11 ML SYR (13:25)
--- NOTE | 2025-01-26 13:33 | W.PM.DSUDISC ---
Date of service: 01/26/25 Discharge Plan Disposition Patient Disposition: Home Condition: Stable Discharge Details Reason For Visit: cystoscopy Attending Provider: Romain Abdi Primary Care Provider: Charbel De Paz Home Meds and New Rx's Prescriptions: No Action omeprazole 10 MG capsule,delayed release(DR/EC) 20 mg PO DAILY albuterol sulfate [Ventolin HFA] 90 mcg/actuation HFA aerosol inhaler 2 puff IH Q6H PRN albuterol sulfate 2.5 mg /3 mL (0.083 %) solution for nebulization 2.5 mg inhalation QID PRN fluticasone propion-salmeterol [Advair HFA] 2 inh inhalation DAILY PRN Patient Comments: 11/29/23 pt reported he takes this med. FS RN 01/26/25 pt. reports it is too expensive so has not used for about a year, using another inhaler multivitamin Tablet 1 tab PO DAILY atorvastatin 20 mg tablet 20 mg PO DAILY Patient Comments: Take 1 tablet by mouth once a day budesonide 0.5 mg/2 mL suspension for nebulization Patient Comments: INHALE ONE VIAL VIA NEBULIZER TWICE A DAY NEEDED. used last spring acetaminophen 500 mg capsule 500 mg PO ONCE Patient Comments: 1000 mg Discharge Instructions Additional Instructions: I did no see any visible tumor but I did take a urine sample for cytology. the results should be available in about 1 week. As long as the cytology is normal, we will not need another cystoscopy for a year!!!!! Stand Alone Forms: Anesthesia Discharge Inst., [facility] ([facility]), Portal Information Activity:: Activity as Tolerated Shower/Bathe:: 24 hours Diet:: As Tolerated Discharge Orders Discharge Orders: Discharge Order (Routine); Ordered 01/26/25 Ordered By: Romain Abdi DS: Diagnosis Discharge Diagnosis (1) Bladder cancer:
--- NOTE | 2025-01-26 13:35 | W.PM.OP ---
Operative Note Operative Note PRE-OP DIAGNOSIS: Bladder cancer POST-OP DIAGNOSIS: same PROCEDURE: cystoscopy SURGEON: Romain Abdi ANESTHESIA TYPE: Local By Surgeon and General:No Airway Refer to Anesthesia Record ESTIMATED BLOOD LOSS: 5 PATHOLOGY: other (urine for cytology) COMPLICATIONS: None Patient was transported to: same day Patient's condition: stable Indications: This is a 74-year-old gentleman who has a history of urothelial cell carcinoma of the bladder as well as carcinoma in situ. He was initially treated with transurethral resection. He received intravesical treatments. We utilized BCG when it was available and gemcitabine when the BCG was not available. He presents now for surveillance cystoscopy and possible transurethral resection of any visible tumor. If no recurrence is identified, we will switch his surveillance cystoscopy schedule out to yearly. Findings: no visible tumor Procedure Description: The patient was given an oral antibiotic brought to the operating room on 01/26/2025. After successful induction of general anesthesia without intubation, he was placed in the dorsal lithotomy position. His genitalia was prepped and draped. 2% Xylocaine jelly was instilled into the urethra. A 24 Bulgarian resectoscope sheath was passed through the urethra into the bladder. We inspected the urethra and the bladder using a visual obturator and a 30 degree lens. The pendulous, bulbar and membranous urethra appeared normal with no strictures. The prostatic urethra showed some lateral lobe enlargement along with some scarring at the bladder neck. No significant median lobe of the prostate was identified. The bladder neck was entered and the urine within the bladder was collected and sent to the lab for cytology. The bladder mucosa was inspected. There was a scar on the patient's left lateral bladder wall from previous resection. Both ureteral orifices appeared normal with no blood coming from either side. The remainder of the bladder showed no papillary or nodular lesions. The bladder was emptied and the resectoscope was removed. The patient tolerated this procedure well with no complications. He was taken back to the day surgery unit in stable condition. Date of Procedure: 01/26/25
[2025-01-26 13:36] VITALS: BP 98/77; PULSE 67; RESP 16; TEMP 36.3; O2SAT 97
[2025-01-26] MEDS: Phenazopyridine 200 MG TAB PO (14:06)
[2025-01-26 14:08] VITALS: BP 125/98; PULSE 60; RESP 16; TEMP 36.5; O2SAT 100
--- NOTE | 2025-01-26 14:13 | W.ANESPOSTOP ---
Postoperative Evaluation Date, Time and Location Date Performed: 01/26/25 Time Performed: 13:40 Patient Location: Day Surgery Unit Vital Signs Most Recent Imported Vital Signs: Most Recent Vital Signs Temp Pulse Resp BP Pulse Ox 36.3 C L 67 16 98/77 L 97 01/26/25 13:36 01/26/25 13:36 01/26/25 13:36 01/26/25 13:36 01/26/25 13:36 Pain Score Most Recent Pain Score: Most Recent Pain Score Pain Level 0 01/26/25 13:36 Assessment Mental Status: Awake (Alert & Oriented to Patient Baseline) Airway and Respiratory Function: Patent airway with normal (patient baseline) respiratory exam Cardiovascular Function: Hemodynamically Stable Hydration Status: Adequately Hydrated Nausea & Vomiting: No Nausea or Vomiting Pain: Pt. Denies Any Pain Peripheral Nerve Block: Patient did not receive a nerve block
== END 2025-01-26 14:38 | disposition home or self-care (01) ==
PROVIDERS: PCP Family Medicine; Visit Provider Urology
PROC: 0TBB8ZZ Excision of Bladder, Via Natural or Artificial Opening Endoscopic (ICD-10-PCS; CPT 52000; principal; 2025-01-26 12:00)
DX: C67.9 Malignant neoplasm of bladder, unspecified (principal); Z79.899 Other long term (current) drug therapy; I10 Essential (primary) hypertension; G62.9 Polyneuropathy, unspecified; J45.909 Unspecified asthma, uncomplicated
CPT/HCPCS: 52000; 88104; J1885; J2003; J2405; J2704